=== PATIENT | male | born 1935 | race Caucasian/White ===

== ENCOUNTER 2017-03-27 10:00 | Inpatient (IN) | payer MEDICARE, OTHER ==
[2017-03-27] MEDS ORDERED: SODIUM CHLORIDE 0.9% 500 ML IV STA (10:30)
--- NOTE | 2017-03-27 10:35 | ED ---
General Adult HPI - General Chief complaint: GI Bleed Stated complaint: GI Bleed Time Seen by Provider: 03/27/17 10:00 Source: patient, RN notes reviewed Mode of arrival: ambulatory Limitations: no limitations - History of Present Illness Initial comments: 81-year-old male who presents emergency Department complaining of black stools for 3 days. Patient denies any bright red blood. Patient denies being on any blood thinners. Patient denies ever having a GI bleed. Patient states he gets occasional abdominal pain but currently is in no pain at all. Patient denies any nausea vomiting diarrhea recently. Patient denies any fever or chills. Patient denies any dysuria hematuria urinary frequency. Patient denies taking any Maalox or Pepto-Bismol. Patient denies any chest pain difficult breathing shortness of breath. Patient denies any lightheadedness dizziness nursing. - Related Data Home Medications Medication Instructions Recorded Confirmed Albuterol Inhaler [Ventolin Hfa 2 puff INHALATION RT-Q4H PRN 04/04/14 03/27/17 Inhaler] Budesonide-Formot 160-4.5 Mcg 2 puff INHALATION RT-BID 04/04/14 03/27/17 [Symbicort 160-4.5 Mcg Inhaler] NIFEdipine [NIFEdipine ER] 60 mg PO DAILY 04/04/14 03/27/17 Tiotropium [place] [Spiriva] 18 mcg IH RT-DAILY 04/04/14 03/27/17 Allergies Allergy/AdvReac Type Severity Reaction Status Date / Time No Known Allergies Allergy Verified 03/27/17 10:41 Review of Systems ROS Statement: Those systems with pertinent positive or pertinent negative responses have been documented in the HPI. ROS Other: All systems not noted in ROS Statement are negative. Past Medical History Past Medical History: COPD, Hypertension History of Any Multi-Drug Resistant Organisms: None Reported Date of last positivie culture/infection: 2012 MDRO Source:: LUNG Past Surgical History: Unable to Obtain, Cholecystectomy Additional Past Surgical History / Comment(s): CATARACT SX, HERNIA REPAIR Past Psychological History: No Psychological Hx Reported Smoking Status: Never smoker Past Alcohol Use History: Daily Past Drug Use History: None Reported - Past Family History Brother(s) Family Medical History: No Reported History Father Family Medical History: Cancer (Lung) Mother Family Medical History: Coronary Artery Disease (CAD), Hypertension General Exam - General Exam Comments Initial Comments: GENERAL: Patient is well-developed and well-nourished. Patient is nontoxic and well- hydrated and is in no acute distress. ENT: Neck is soft and supple. No significant lymphadenopathy is noted. Oropharynx is clear. Moist mucous membranes. Neck has full range of motion without eliciting any pain. EYES: The sclera were anicteric and conjunctiva were pink and moist. Extraocular movements were intact and pupils were equal round and reactive to light. Eyelids were unremarkable. PULMONARY: Unlabored respirations. Good breath sounds bilaterally. No audible rales rhonchi or wheezing was noted. CARDIOVASCULAR: There is a regular rate and rhythm without any murmurs gallops or rubs. ABDOMEN: Soft and nontender with normal bowel sounds. No palpable organomegaly was noted. There is no palpable pulsatile mass. RECTAL Rectal exam did not present any significant amount of stool. Otherwise normal SKIN: Skin is clear with no lesions or rashes and otherwise unremarkable. NEUROLOGIC: Patient is alert and oriented x3. Cranial nerves II through XII are grossly intact. Motor and sensory are also intact. Normal speech, volume and content. Symmetrical smile. MUSCULOSKELETAL: Normal extremities with adequate strength and full range of motion. LYMPHATICS: No significant lymphadenopathy is noted PSYCHIATRIC: Normal psychiatric evaluation. Normal interpersonal interactions appears functionally intact in deals appropriately with others. Limitations: no limitations Course Vital Signs 03/27/17 03/27/17 10:08 11:55 Temperature 99.9 F H Pulse Rate 83 98 Respiratory 20 18 Rate Blood Pressure 139/70 148/77 O2 Sat by Pulse 99 98 Oximetry Medical Decision Making - Medical Decision Making EKG shows normal sinus rhythm at 79 bpm NV interval is 160 QRS is 92 QT interval is 46 QTC is 465. I spoke with Dr. García he agreed to admit the patient admitted the patient I did serial CBCs and I consult with GI. - Lab Data Result diagrams: 03/27/17 10:41 03/27/17 10:41 Lab Results 03/27/17 03/27/17 03/27/17 Range/Units 10:41 10:41 10:41 WBC 5.0 (3.8-10.6) k/uL RBC 3.11 L (4.30-5.90) m/uL Hgb 9.7 L (13.0-17.5) gm/dL Hct 29.2 L (39.0-53.0) % MCV 93.8 (80.0-100.0) fL MCH 31.1 (25.0-35.0) pg MCHC 33.2 (31.0-37.0) g/dL RDW 14.4 (11.5-15.5) % Plt Count 192 (150-450) k/uL Neutrophils % 74 % Lymphocytes % 17 % Monocytes % 6 % Eosinophils % 1 % Basophils % 0 % Neutrophils # 3.7 (1.3-7.7) k/uL Lymphocytes # 0.8 L (1.0-4.8) k/uL Monocytes # 0.3 (0-1.0) k/uL Eosinophils # 0.0 (0-0.7) k/uL Basophils # 0.0 (0-0.2) k/uL PT 10.1 (9.0-12.0) sec INR 1.0 (<1.1) APTT 22.5 (22.0-30.0) sec Sodium 131 L (137-145) mmol/L Potassium 3.2 L (3.5-5.1) mmol/L Chloride 101 (98-107) mmol/L Carbon Dioxide 22 (22-30) mmol/L Anion Gap 8 mmol/L BUN 14 (9-20) mg/dL Creatinine 0.64 L (0.66-1.25) mg/dL Est GFR (MDRD) Af Amer >60 (>60 ml/min/1.73 sqM) Est GFR (MDRD) Non-Af >60 (>60 ml/min/1.73 sqM) Glucose 96 (74-99) mg/dL Calcium 8.8 (8.4-10.2) mg/dL Total Bilirubin 0.6 (0.2-1.3) mg/dL AST 30 (17-59) U/L ALT 30 (21-72) U/L Alkaline Phosphatase 61 (38-126) U/L Total Protein 6.3 (6.3-8.2) g/dL Albumin 3.7 (3.5-5.0) g/dL Stool Occult Blood (Negative) Blood Type Blood Type Recheck Antibody Screen Spec Expiration Date 06/13/17 06/13/17 Range/Units 10:41 10:44 WBC (3.8-10.6) k/uL RBC (4.30-5.90) m/uL Hgb (13.0-17.5) gm/dL Hct (39.0-53.0) % MCV (80.0-100.0) fL MCH (25.0-35.0) pg MCHC (31.0-37.0) g/dL RDW (11.5-15.5) % Plt Count (150-450) k/uL Neutrophils % % Lymphocytes % % Monocytes % % Eosinophils % % Basophils % % Neutrophils # (1.3-7.7) k/uL Lymphocytes # (1.0-4.8) k/uL Monocytes # (0-1.0) k/uL Eosinophils # (0-0.7) k/uL Basophils # (0-0.2) k/uL PT (9.0-12.0) sec INR (<1.1) APTT (22.0-30.0) sec Sodium (137-145) mmol/L Potassium (3.5-5.1) mmol/L Chloride (98-107) mmol/L Carbon Dioxide (22-30) mmol/L Anion Gap mmol/L BUN (9-20) mg/dL Creatinine (0.66-1.25) mg/dL Est GFR (MDRD) Af Amer (>60 ml/min/1.73 sqM) Est GFR (MDRD) Non-Af (>60 ml/min/1.73 sqM) Glucose (74-99) mg/dL Calcium (8.4-10.2) mg/dL Total Bilirubin (0.2-1.3) mg/dL AST (17-59) U/L ALT (21-72) U/L Alkaline Phosphatase (38-126) U/L Total Protein (6.3-8.2) g/dL Albumin (3.5-5.0) g/dL Stool Occult Blood Positive (Negative) Blood Type O Positive Blood Type Recheck No Antibody Screen NEGATIVE Spec Expiration Date 03/30/2017 - 2341 Disposition Clinical Impression: Gastrointestinal hemorrhage Disposition: ADMITTED IP TO THIS [facility] Referrals: Christie Pryor MD [Primary Care Provider] - 1-2 days Time of Disposition: 12:12
[2017-03-27 10:57] LABS: Basophils % (A) 0 %; CH 31.5; CHCM 33.8; Eosinophils % (A) 1 %; HCT 29.2 % (39.0-53.0); HDW 2.41; HGB 9.7 gm/dL (13.0-17.5); Luc # (Auto) 0.14; Luc % (Auto) 3; Lymphocytes # (A) 0.8 k/uL (1.0-4.8); Lymphocytes % (A) 17 %; MCH 31.1 pg (25.0-35.0); MCHC 33.2 g/dL (31.0-37.0); MCV 93.8 fL (80.0-100.0); Mean Platelet Volume 7.2; Monocytes # (A) 0.3 k/uL (0-1.0); Monocytes % (A) 6 %; Neutrophils # (A) 3.7 k/uL (1.3-7.7); Neutrophils % (A) 74 %; RBC 3.11 m/uL (4.30-5.90); RDW 14.4 % (11.5-15.5); WBC (Perox) 5.24
[2017-03-27 11:03] LABS: Partial Thromboplastin Time 22.5 sec (22.0-30.0); Prothrombin Time 10.1 sec (9.0-12.0)
[2017-03-27 11:08] LABS: ALT 30 U/L (21-72); AST 30 U/L (17-59); Alkaline Phosphatase 61 U/L (38-126); Anion Gap 8 mmol/L; Blood Urea Nitrogen 14 mg/dL (9-20); Calcium 8.8 mg/dL (8.4-10.2); Carbon Dioxide 22 mmol/L (22-30); Chloride 101 mmol/L (98-107); Glucose 96 mg/dL (74-99); Non-African American GFR(MDRD) >60 (>60 ml/min/1.73 sqM); Potassium 3.2 mmol/L (3.5-5.1); Sodium 131 mmol/L (137-145); Total Bilirubin 0.6 mg/dL (0.2-1.3); Total Protein 6.3 g/dL (6.3-8.2)
[2017-03-27] MEDS ORDERED: SODIUM CHLORIDE 0.9% 1,000 ML IV ONE (12:13)
[2017-03-27 14:21] LABS: Basophils % (A) 0 %; CH 31.9; CHCM 33.1; Eosinophils # (A) 0.1 k/uL (0-0.7); Eosinophils % (A) 1 %; HDW 2.39; HGB 8.9 gm/dL (13.0-17.5); Luc % (Auto) 4; Lymphocytes # (A) 1.1 k/uL (1.0-4.8); Lymphocytes % (A) 23 %; MCH 30.9 pg (25.0-35.0); MCHC 31.9 g/dL (31.0-37.0); Monocytes # (A) 0.4 k/uL (0-1.0); Monocytes % (A) 8 %; Neutrophils # (A) 3.2 k/uL (1.3-7.7); Neutrophils % (A) 64 %; RBC 2.89 m/uL (4.30-5.90); RDW 14.4 % (11.5-15.5); WBC (Perox) 5.07
[2017-03-27] MEDS ORDERED: ALBUTEROL NEBULIZED 2.5 MG/3 ML INHALATION PRN (18:15)
--- NOTE | 2017-03-27 18:15 | P.HPIM ---
History of Present Illness H&P Date: 03/27/17 Chief Complaint: Gastrointestinal bleeding Patient is an 81-year-old male patient of Dr. Pryor presented to [facility] emergency room with a chief complaint of black tarry stools for the last 4 days, patient was evaluated in emergency room, his hemoglobin was trending down and he was admitted to medical floor and gastroenterology consultation was requested. Patient denies ever having any previous episodes of gastrointestinal bleeding, he states that he has osteoarthritis and he takes Aleve 2 daily he also was taking a full aspirin daily until recently when he switched to baby aspirin. Patient states that he used to smoke in the remote past he quit at age 33, he denies any smoking or any alcohol use at this time Patient denies any significant cardiac history in the past Past Medical History Past Medical History: COPD, GERD/Reflux, Hypertension, Osteoarthritis (OA) Additional Past Medical History / Comment(s): Bronchitis, arthritis bilateral hands and hips, benign colon polypectomy, History of Any Multi-Drug Resistant Organisms: None Reported, MRSA Date of last positivie culture/infection: 2012 MDRO Source:: sputum Past Surgical History: Cholecystectomy, Hernia Repair, Orthopedic Surgery Additional Past Surgical History / Comment(s): CATARACT SX, R inguinal HERNIA REPAIR, colonoscopy with benign polyp, amputation L pinky finger Past Anesthesia/Blood Transfusion Reactions: No Reported Reaction Past Psychological History: No Psychological Hx Reported Additional Psychological History / Comment(s): Pt resides alone. He does not drive and has difficulties making it to appts. He is otherwise independent. He has a nebulizer. Smoking Status: Former smoker Past Alcohol Use History: Rare Additional Past Alcohol Use History / Comment(s): Pt states he started smoking about 6 and quit about 1971. He states he used to drink alot but quit heavy drinking in 2014. He states on a rare occasion, he will drink 1 beer. Past Drug Use History: None Reported - Past Family History Brother(s) Family Medical History: No Reported History Father Family Medical History: Cancer Additional Family Medical History / Comment(s): Father of lung cancer. He was a smoker. Mother Family Medical History: Coronary Artery Disease (CAD), Hypertension Additional Family Medical History / Comment(s): Mother at the age of 72yrs. Medications and Allergies Home Medications Medication Instructions Recorded Confirmed Type Albuterol Inhaler [Ventolin Hfa 2 puff INHALATION RT-Q4H PRN 04/04/14 03/27/17 History Inhaler] Budesonide-Formot 160-4.5 Mcg 2 puff INHALATION RT-BID 04/04/14 03/27/17 History [Symbicort 160-4.5 Mcg Inhaler] NIFEdipine [NIFEdipine ER] 60 mg PO DAILY 04/04/14 03/27/17 History Tiotropium [place] [Spiriva] 18 mcg IH RT-DAILY 04/04/14 03/27/17 History Allergies Allergy/AdvReac Type Severity Reaction Status Date / Time No Known Allergies Allergy Verified 03/27/17 10:41 Physical Exam Vitals: Vital Signs Temp Pulse Pulse Resp BP BP Pulse Ox 03/27/17 15:01 78 16 03/27/17 14:59 98.5 F 81 16 191/78 98 03/27/17 13:17 99.0 F 82 18 135/73 99 03/27/17 11:55 98 18 148/77 98 03/27/17 10:08 99.9 F H 83 20 139/70 99 Intake and Output 03/27/17 03/27/17 03/27/17 06:59 14:59 22:59 Output Total 200 Balance -200 Output: Urine 200 Other: Voiding Method Toilet Urinal Weight 73.028 kg Patient Weight 03/28/17 06:59 Weight 73.028 kg In general patient is alert and oriented 3 in no apparent distress HEENT head normocephalic and atraumatic Neck is supple no JVD no goiter no lymphadenopathy Chest is clear to auscultation no crackles no wheezing Cardiac exam reveals regular heart sounds no gallops no murmurs Abdomen is soft nontender no organomegaly with normal bowel sounds Extremity exam reveals no edema no cyanosis or Results CBC & Chem 7: 03/27/17 14:01 03/27/17 10:41 Labs: Abnormal Lab Results - Last 24 Hours (Table) 03/27/17 03/27/17 03/27/17 Range/Units 10:41 10:41 14:01 RBC 3.11 L 2.89 L (4.30-5.90) m/uL Hgb 9.7 L 8.9 L (13.0-17.5) gm/dL Hct 29.2 L 28.0 L (39.0-53.0) % Lymphocytes # 0.8 L (1.0-4.8) k/uL Sodium 131 L (137-145) mmol/L Potassium 3.2 L (3.5-5.1) mmol/L Creatinine 0.64 L (0.66-1.25) mg/dL Thrombosis Risk Factor Assmnt - Choose All That Apply Any of the Below Risk Factors Present?: Yes Each Factor Represents 1 point: Abnormal pulmonary function (COPD), Obesity ( BMI >25) Other Risk Factors: Yes Each Risk Factor Represents 3 Points: Age 75 years or older Other congenital or acquired thrombophilia - If yes, enter type in comment: No Thrombosis Risk Factor Assessment Total Risk Factor Score: 5 Thrombosis Risk Factor Assessment Level: High Risk Assessment and Plan Plan: #1 black tarry stools suggestive of upper gastrointestinal bleeding #2 anemia monitoring hemoglobin level closely will proceed was available red blood cell transfusion if necessary this was discussed with patient and he has no objection to blood transfusion #3 hypokalemia correcting #4 underlying history of hypertension maintained on nifedipine continue #5 underlying history of COPD maintained on Spiriva and Symbicort continue Medication and labs were reviewed will follow closely please see orders thank you very much end
[2017-03-27] MEDS: POTASSIUM CHLORIDE ER 10 MEQ TAB.ER.PRT PO STA ×2 (18:30→18:31)
[2017-03-27] MEDS: SYMBICORT 160-4.5 MCG INHALER INHALATION SCH (19:39)
[2017-03-27] MEDS: PANTOPRAZOLE 40 MG/10 ML VIAL IVP SCH (19:56)
[2017-03-28] MEDS: TIOTROPIUM 18 MCG/PUFF INHALER INHALATION SCH (07:17)
[2017-03-28] MEDS: SYMBICORT 160-4.5 MCG INHALER INHALATION SCH ×2 (07:17→20:58)
[2017-03-28] MEDS: PANTOPRAZOLE 40 MG/10 ML VIAL IVP SCH ×2 (08:00→20:24)
[2017-03-28 08:01] LABS: Basophils % (A) 1 %; CH 31.7; CHCM 34.3; Eosinophils # (A) 0.1 k/uL (0-0.7); Eosinophils % (A) 2 %; HCT 27.4 % (39.0-53.0); HDW 2.61; HGB 9.4 gm/dL (13.0-17.5); Luc # (Auto) 0.13; Luc % (Auto) 3; Lymphocytes # (A) 0.8 k/uL (1.0-4.8); Lymphocytes % (A) 18 %; MCH 31.8 pg (25.0-35.0); MCHC 34.2 g/dL (31.0-37.0); MCV 92.9 fL (80.0-100.0); Mean Platelet Volume 6.7; Monocytes # (A) 0.3 k/uL (0-1.0); Monocytes % (A) 8 %; Neutrophils # (A) 2.9 k/uL (1.3-7.7); Neutrophils % (A) 68 %; RBC 2.94 m/uL (4.30-5.90); RDW 14.2 % (11.5-15.5); WBC 4.2 k/uL (3.8-10.6); WBC (Perox) 4.34
[2017-03-28 08:11] LABS: ALT 31 U/L (21-72); AST 29 U/L (17-59); Alkaline Phosphatase 57 U/L (38-126); Anion Gap 9 mmol/L; Blood Urea Nitrogen 6 mg/dL (9-20); Calcium 8.7 mg/dL (8.4-10.2); Carbon Dioxide 22 mmol/L (22-30); Chloride 100 mmol/L (98-107); Glucose 94 mg/dL (74-99); Non-African American GFR(MDRD) >60 (>60 ml/min/1.73 sqM); Potassium 3.7 mmol/L (3.5-5.1); Sodium 131 mmol/L (137-145); Total Bilirubin 0.7 mg/dL (0.2-1.3)
--- NOTE | 2017-03-28 09:47 | P.CONS ---
History of Present Illness - Reason for Consult Consult date: 03/28/17 GI bleed melena Requesting physician: Asuncion García - History of Present Illness 81-year-old gentleman patient of Dr. Dr. Pryor with a past medical history remote EtOH abuse presents with a 5 day history of black colored bowel movements. Averages 1 to 2 black movements daily. Denies hematemesis or gross hematochezia. Last colonoscopy several years ago to his memory maybe one polyp removed. No history of peptic ulcer disease or GI bleeding. No history of EGD. Takes Aleve twice a day for arthritic pain last dose about 5 days ago. Baby aspirin daily. Occasional Motrin as needed. No active alcohol. Hemoglobin 9.7 on admission presently 9.4. MCV 93. Platelet 192. BUN 14. Creatinine 0.6. INR 1.0. Reports abdominal bloatedness and pain in the right upper quadrant/right subcostal region. No fever or chills. Review of Systems Constitutional: Denies fever, chills, sweats, weight gain, or loss. HEENT: Negative for migraines, blurred vision or loss, earaches, drainage, tinnitus, oral mucosal lesions, dysphagia, or odynophagia. Cardiac: Hypertension. Negative for chest pain, arrhythmias, or palpitation. Respiratory: COPD. Negative for shortness of breath, hemoptysis, cough, or sputum production. Gastrointestinal: See HPI for pertinent findings. Genitourinary: Negative for hematuria, urgency, frequency, polyuria, dysuria, or penile discharge. Musculoskeletal: Arthritis. Negative for muscle aches, swelling, arthritis, and arthralgias. Neurologic: Negative for stroke or TIA. Endocrine: Negative for thyroid problems. Skin: Negative for rash or itching. Psychiatric: Negative history for depression and anxiety All systems: negative (See HPI) Past Medical History Past Medical History: COPD, GERD/Reflux, Hypertension, Osteoarthritis (OA) Additional Past Medical History / Comment(s): Bronchitis, arthritis bilateral hands and hips, benign colon polypectomy, History of Any Multi-Drug Resistant Organisms: None Reported, MRSA Year Discovered:: 2012 MDRO Source:: sputum Past Surgical History: Cholecystectomy, Hernia Repair, Orthopedic Surgery Additional Past Surgical History / Comment(s): CATARACT SX, R inguinal HERNIA REPAIR, colonoscopy with benign polyp, amputation L pinky finger Past Anesthesia/Blood Transfusion Reactions: No Reported Reaction Past Psychological History: No Psychological Hx Reported Additional Psychological History / Comment(s): Pt resides alone. He does not drive and has difficulties making it to appts. He is otherwise independent. He has a nebulizer. Smoking Status: Former smoker Past Alcohol Use History: Rare Additional Past Alcohol Use History / Comment(s): Pt states he started smoking about 1954 and quit about 1971. He states he used to drink alot but quit heavy drinking in 2014. He states on a rare occasion, he will drink 1 beer. Past Drug Use History: None Reported - Past Family History Brother(s) Family Medical History: No Reported History Father Family Medical History: Cancer Additional Family Medical History / Comment(s): Father of lung cancer. He was a smoker. Mother Family Medical History: Coronary Artery Disease (CAD), Hypertension Additional Family Medical History / Comment(s): Mother at the age of 72yrs. Medications and Allergies Home Medications Medication Instructions Recorded Confirmed Type Albuterol Inhaler [Ventolin Hfa 2 puff INHALATION RT-Q4H PRN 04/04/14 03/27/17 History Inhaler] Budesonide-Formot 160-4.5 Mcg 2 puff INHALATION RT-BID 04/04/14 03/27/17 History [Symbicort 160-4.5 Mcg Inhaler] NIFEdipine [NIFEdipine ER] 60 mg PO DAILY 04/04/14 03/27/17 History Tiotropium [place] [Spiriva] 18 mcg IH RT-DAILY 04/04/14 03/27/17 History Allergies Allergy/AdvReac Type Severity Reaction Status Date / Time No Known Allergies Allergy Verified 03/27/17 10:41 Physical Exam Vitals: Vital Signs Temp Pulse Pulse Resp BP BP Pulse Ox 03/28/17 08:00 72 16 03/28/17 07:00 98.4 F 72 16 132/72 98 03/27/17 23:03 97.9 F 72 16 121/71 99 03/27/17 15:01 78 16 03/27/17 14:59 98.5 F 81 16 191/78 98 03/27/17 13:17 99.0 F 82 18 135/73 99 03/27/17 11:55 98 18 148/77 98 03/27/17 10:08 99.9 F H 83 20 139/70 99 Intake and Output 03/27/17 03/28/17 03/28/17 22:59 06:59 14:59 Intake Total 1100 Output Total 200 2175 Balance -200 -1075 Intake: Intake, IV Titration 1100 Amount Sodium Chloride 0.9% 1, 1100 000 ml @ 100 mls/hr IV . Q10H ONE Rx#:[id number] Output: Urine 200 2175 Other: Voiding Method Toilet Toilet Toilet Urinal Urinal Urinal Weight 73.028 kg Patient Weight 03/29/17 06:59 Weight 73.028 kg General appearance: The patient is alert, oriented, in no acute distress. HET: Head is normocephalic and atraumatic. Pupils are equal and reactive. Oropharynx is clear without lesions. Neck: Supple without lymphadenopathy. Trachea midline. Heart: S1 S2. Regular rate and rhythm. Lungs: No crackles or wheezes are heard. Abdomen: Soft, slightly bloated, mild tenderness to the right upper quadrant/ right subcostal region with bowel sounds. No peritoneal signs. No palpable organomegaly or masses. Extremities: Normal skin color and turgor. No cyanosis, rash, ulceration, clubbing, or edema. Radial and pedal pulses are 2/4 bilaterally. Neurological: No focal deficits. Strength and sensation are grossly intact. Results CBC & Chem 7: 03/28/17 07:40 03/28/17 07:40 Labs: Abnormal Lab Results - Last 24 Hours (Table) 03/27/17 03/27/17 03/27/17 Range/Units 10:41 10:41 14:01 RBC 3.11 L 2.89 L (4.30-5.90) m/uL Hgb 9.7 L 8.9 L (13.0-17.5) gm/dL Hct 29.2 L 28.0 L (39.0-53.0) % Lymphocytes # 0.8 L (1.0-4.8) k/uL Sodium 131 L (137-145) mmol/L Potassium 3.2 L (3.5-5.1) mmol/L BUN (9-20) mg/dL Creatinine 0.64 L (0.66-1.25) mg/dL Total Protein (6.3-8.2) g/dL 03/28/17 03/28/17 Range/Units 07:40 07:40 RBC 2.94 L (4.30-5.90) m/uL Hgb 9.4 L (13.0-17.5) gm/dL Hct 27.4 L (39.0-53.0) % Lymphocytes # 0.8 L (1.0-4.8) k/uL Sodium 131 L (137-145) mmol/L Potassium (3.5-5.1) mmol/L BUN 6 L (9-20) mg/dL Creatinine 0.56 L (0.66-1.25) mg/dL Total Protein 6.0 L (6.3-8.2) g/dL Assessment and Plan (1) Gastrointestinal hemorrhage Status: Acute (2) Melena Status: Acute (3) Acute blood loss anemia Status: Acute (4) History of ETOH abuse Status: Acute Plan: 1. IV Protonix 40 mg twice daily. 2. EGD evaluation. 3. Avoid NSAIDs and aspirin. 4. Monitor CBC. The specifications checker has discussed the risks, benefits and alternative therapies for the above-mentioned procedure and for both sedation/analgesia as well as necessary blood product administration, if indicated, as they pertain to this patient. The patient has indicated understanding and acceptance of the risks and procedures discussed. Thank you for this kind referral and the opportunity to participate in the care of your patient. This consultation was discussed with Dr. Mathew. The impression and plan of care have been directed as dictated.
[2017-03-28] MEDS ORDERED: LIDOCAINE 1% INJ 10MG/ML (20 ML MDV) ONE (10:00)
[2017-03-28] MEDS ORDERED: PROPOFOL 10 MG/ML 20 ML VIAL IV ONE (10:00)
[2017-03-28] MEDS ORDERED: SODIUM CHLORIDE 0.9% 1,000 ML IV ONE (10:04)
--- NOTE | 2017-03-28 10:19 | P.PCN ---
Date of Procedure: 03/28/17 Preoperative Diagnosis: Postoperative Diagnosis: Procedure(s) Performed: BRIEF HISTORY: Patient is a 81-year-old, pleasant, white male, scheduled for an upper endoscopy as a part of evaluation of black tarry stools for the last 4 days duration. He came into the emergency room and wasn't have a hemoglobin of 9.7 g/dL. Scheduled for an upper endoscopy to evaluate source of upper GI bleed. PROCEDURE PERFORMED: Esophagogastroduodenoscopy with biopsy. PREOPERATIVE DIAGNOSIS: Melena of 4 days duration and anemia. IV sedation per anesthesia. PROCEDURE: After informed consent was obtained, the patient was brought into the endoscopy unit. IV sedation was administered by Anesthesia under continuous monitoring. Initially the Olympus GIF-140 video endoscope was inserted into the mouth. Esophagus intubated without any difficulty. It was gradually advanced into the stomach and duodenum and carefully examined. The bulb and the second part of the duodenum appeared normal. The scope at this time was withdrawn to the stomach, adequately insufflated with air, and upon careful examination, mucosa of the antrum, body, cardia and the fundus appeared normal. The scope was then withdrawn into the esophagus. Small hiatal hernia noted. The GE junction was located at 35 cm from the incisors. There was long 7 or Wooten's esophagus extending from 25-30% administered by incisors and multiple ulcerations noted in the distal part of the Wooten's esophagus. Multiple biopsies were done from this segment of Wooten's esophagus to rule out dysplasia. The proximal esophagus appeared normal and the patient tolerated the procedure well. IMPRESSION: 1. 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 2. Small hiatal hernia. RECOMMENDATIONS: The findings of this examination were discussed with the patient. At this time he was started on the soft diet. He'll be continued on Protonix 40 mg twice daily. He was advised to follow with the biopsy results and if the biopsy does not have any evidence of dysplasia and he can have a repeat upper endoscopy in 2 years as part of surveillance of Wootne's esophagus. Implants: Indications for Procedure: Operative Findings: Description of Procedure:
--- NOTE | 2017-03-28 12:29 | P.PN ---
Subjective Patient is complaining of epigastric pain today. He underwent an EGD this morning. He said his pain is approximately 8 out of 10 in severity. EGD findings noted below. Objective - Vital Signs Vital signs: Vital Signs Temp 98.4 F 03/28/17 07:00 Pulse 72 03/28/17 08:00 Resp 16 03/28/17 08:00 BP 132/72 03/28/17 07:00 Pulse Ox 98 03/28/17 07:00 Intake & Output 03/27/17 03/28/17 03/28/17 18:59 06:59 18:59 Intake Total 1100 300 Output Total 200 2375 Balance -200 -1275 300 Weight 73.028 kg 73.028 kg Intake: IV 300 Intake, IV Titration 1100 Amount Sodium Chloride 0.9% 1, 1100 000 ml @ 100 mls/hr IV . Q10H ONE Rx#:[id number] Output: Urine 200 2375 Other: Voiding Method Toilet Toilet Toilet Urinal Urinal Urinal - Exam General: The patient is awake and alert, in no distress Eye: there is normal conjunctiva bilaterally. Neck: The neck is supple, there is no JVD. Cardiovascular: Normal S1-S2, no S3-S4, no murmurs. Respiratory: Lungs clear to auscultation bilaterally Gastrointestinal: Abdomen is soft, nontender Musculoskeletal: There is no pedal edema. Neurological:. Speech is normal. Skin: Skin is warm and dry - Labs CBC & Chem 7: 03/28/17 07:40 03/28/17 07:40 Labs: Abnormal Lab Results - Last 24 Hours (Table) 03/27/17 03/28/17 03/28/17 Range/Units 14:01 07:40 07:40 RBC 2.89 L 2.94 L (4.30-5.90) m/uL Hgb 8.9 L 9.4 L (13.0-17.5) gm/dL Hct 28.0 L 27.4 L (39.0-53.0) % Lymphocytes # 0.8 L (1.0-4.8) k/uL Sodium 131 L (137-145) mmol/L BUN 6 L (9-20) mg/dL Creatinine 0.56 L (0.66-1.25) mg/dL Total Protein 6.0 L (6.3-8.2) g/dL Assessment and Plan Plan: 1. Upper GI bleed with melena on presentation 2. 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 Alcohol abuse 4. Essential hypertension: Blood pressure well-controlled 5. Underlying COPD was no evidence of exacerbation Today, I discussed with the patient his EGD findings. We discussed the necessity to stop drinking alcohol. Continue Protonix twice daily. Start liquid diet. May dose low-dose morphine for pain as needed. Continue supportive care otherwise. Hemoglobin remained stable. Repeat lab work in the morning. Appreciate crm consultant's recommendations.
[2017-03-28 15:02] VITALS: BMI 30.4
[2017-03-28] MEDS: MORPHINE SULFATE 2 MG/ML SYRINGE IVP PRN ×2 (15:19→20:22)
[2017-03-29] MEDS: MORPHINE SULFATE 2 MG/ML SYRINGE IVP PRN ×5 (06:28→22:25)
[2017-03-29] MEDS: PANTOPRAZOLE 40 MG/10 ML VIAL IVP SCH ×2 (07:52→19:51)
[2017-03-29 08:11] LABS: Basophils % (A) 0 %; CH 31.7; CHCM 33.2; Eosinophils # (A) 0.1 k/uL (0-0.7); Eosinophils % (A) 2 %; HCT 30.1 % (39.0-53.0); HDW 2.56; Luc # (Auto) 0.12; Luc % (Auto) 2; Lymphocytes % (A) 20 %; MCH 31.7 pg (25.0-35.0); MCHC 33.1 g/dL (31.0-37.0); MCV 95.9 fL (80.0-100.0); Mean Platelet Volume 6.9; Monocytes # (A) 0.4 k/uL (0-1.0); Monocytes % (A) 7 %; Neutrophils # (A) 3.4 k/uL (1.3-7.7); Neutrophils % (A) 68 %; RBC 3.14 m/uL (4.30-5.90); RDW 14.9 % (11.5-15.5); WBC (Perox) 5.09
[2017-03-29 08:24] LABS: Anion Gap 9 mmol/L; Blood Urea Nitrogen 11 mg/dL (9-20); Carbon Dioxide 24 mmol/L (22-30); Chloride 99 mmol/L (98-107); Glucose 98 mg/dL (74-99); Non-African American GFR(MDRD) >60 (>60 ml/min/1.73 sqM); Potassium 3.6 mmol/L (3.5-5.1); Sodium 132 mmol/L (137-145)
[2017-03-29] MEDS: TIOTROPIUM 18 MCG/PUFF INHALER INHALATION SCH (09:00)
[2017-03-29] MEDS: SYMBICORT 160-4.5 MCG INHALER INHALATION SCH ×2 (09:00→21:21)
--- NOTE | 2017-03-29 11:26 | P.PN ---
Subjective Principal diagnosis: GI bleed melena Status post EGD with findings long segment of Wooten's esophagus with ulcerations. Still reports right upper quadrant right subcostal abdominal pain. Afebrile. No recurrence of melena. Hemoglobin 10.0. Objective - Vital Signs Vital signs: Vital Signs Temp 98.8 F 03/29/17 07:00 Pulse 76 03/29/17 08:00 Resp 16 03/29/17 08:00 BP 112/68 03/29/17 07:00 Pulse Ox 97 03/29/17 07:00 Intake & Output 03/28/17 03/29/17 03/29/17 18:59 06:59 18:59 Intake Total 780 240 Balance 780 240 Weight 73.028 kg 73.028 kg Intake: IV 300 Oral 480 240 Other: Voiding Method Toilet Toilet Toilet Urinal Urinal Urinal # Voids 1 2 - Exam General appearance: The patient is alert, oriented, in no acute distress. HET: Head is normocephalic and atraumatic. Pupils are equal and reactive. Oropharynx is clear without lesions. Neck: Supple without lymphadenopathy. Trachea midline. Heart: S1 S2. Regular rate and rhythm. Lungs: No crackles or wheezes are heard. Abdomen: Soft, right upper quadrant tenderness mildly bloated with bowel sounds. No peritoneal signs. No palpable organomegaly or masses. Extremities: Normal skin color and turgor. No cyanosis, rash, ulceration, clubbing, or edema. Radial and pedal pulses are 2/4 bilaterally. Neurological: No focal deficits. Strength and sensation are grossly intact. - Labs CBC & Chem 7: 03/29/17 07:44 03/29/17 07:44 Labs: Abnormal Lab Results - Last 24 Hours (Table) 03/29/17 03/29/17 Range/Units 07:44 07:44 RBC 3.14 L (4.30-5.90) m/uL Hgb 10.0 L (13.0-17.5) gm/dL Hct 30.1 L (39.0-53.0) % Sodium 132 L (137-145) mmol/L Creatinine 0.65 L (0.66-1.25) mg/dL Assessment and Plan (1) Barretts esophagus Narrative/Plan: With ulceration status post EGD Status: Acute (2) Gastrointestinal hemorrhage Status: Acute (3) Melena Status: Acute (4) Acute blood loss anemia Status: Acute (5) History of ETOH abuse Status: Acute Plan: 1. Patient is still expressing right upper quadrant abdominal pain. Recommend computed tomography scan further evaluate pain. Recommendations discussed with Josefina HOWE. Continue GI prophylaxis omeprazole 40 mg daily on discharge. Return to office in 1-2 weeks for reevaluation. Assessment and plan a care discussed with Dr. Eden.
--- NOTE | 2017-03-29 12:35 | CT ---
EXAMINATION TYPE: CT abdomen pelvis wo con DATE OF EXAM: 03/29/2017 HISTORY: Right sided abdomen and pelvic pain CT DLP: 268.8 mGycm. Automated Exposure Control for Dose Reduction was Utilized. TECHNIQUE: CT scan of the abdomen and pelvis is performed without oral or IV contrast. COMPARISON: NONE FINDINGS: Within the limitations of a non-contrast study, the following observations are made. LUNG BASES: Three-vessel coronary artery calcification is present. Suspect tiny pericardial effusion inferiorly, slight nodularity may be related to cardiac motion near right heart seen best on axial im age 12. LIVER/GB: Cholecystectomy clips are present. There is 1.3 cm simple appearing cyst anteriorly in live r. PANCREAS: No significant abnormality is seen. SPLEEN: No significant abnormality is seen. ADRENALS: No significant abnormality is seen. KIDNEYS: There is exophytic 2.5 cm low dense lesion lower pole level left kidney, Hounsfield units av erage 14 favor simple cyst or cystic etiology. Consider ultrasound confirmation as there is slightly more hyperdense than simple cyst. BOWEL: Some diverticula are seen in the sigmoid colon. No acute diverticulitis is evident. No suspici ous bowel dilatation is seen. GENITAL ORGANS: Central zone calcifications are seen in normal size prostate gland. LYMPH NODES: No greater than 1cm abdominal or pelvic lymph nodes are appreciated. OSSEOUS STRUCTURES: Moderate multilevel anterior and lateral spurring in the lower thoracic spine is present. There is moderate to severe disc space narrowing and spurring at lumbosacral junction. There is multilevel facet arthropathy. OTHER: There is small fat-containing left inguinal hernia. Scattered pelvic phleboliths are seen. The re is moderate to severe calcified atherosclerotic change of abdominal aorta extending into branch ve ssels. IMPRESSION: 1. No renal stones or hydronephrosis is seen bilaterally. No significant finding is seen on this stud y to account for patient's symptoms. 2. Attention to lower pole left kidney, ultrasound follow-up advised.
--- NOTE | 2017-03-29 13:01 | P.PN ---
Subjective Patient is complaining of epigastric pain today. His pain is not improving since yesterday. He is tolerating diet with no difficulty. Objective - Vital Signs Vital signs: Vital Signs Temp 98.8 F 03/29/17 07:00 Pulse 76 03/29/17 08:00 Resp 16 03/29/17 08:00 BP 112/68 03/29/17 07:00 Pulse Ox 97 03/29/17 07:00 Intake & Output 03/28/17 03/29/17 03/29/17 18:59 06:59 18:59 Intake Total 780 240 Balance 780 240 Weight 73.028 kg 73.028 kg Intake: IV 300 Oral 480 240 Other: Voiding Method Toilet Toilet Toilet Urinal Urinal Urinal # Voids 1 2 - Exam General: The patient is awake and alert, in no distress Eye: there is normal conjunctiva bilaterally. Neck: The neck is supple, there is no JVD. Cardiovascular: Normal S1-S2, no S3-S4, no murmurs. Respiratory: Lungs clear to auscultation bilaterally Gastrointestinal: Abdomen is soft, nontender Musculoskeletal: There is no pedal edema. Neurological:. Speech is normal. Skin: Skin is warm and dry - Labs CBC & Chem 7: 03/29/17 07:44 03/29/17 07:44 Labs: Abnormal Lab Results - Last 24 Hours (Table) 03/29/17 03/29/17 Range/Units 07:44 07:44 RBC 3.14 L (4.30-5.90) m/uL Hgb 10.0 L (13.0-17.5) gm/dL Hct 30.1 L (39.0-53.0) % Sodium 132 L (137-145) mmol/L Creatinine 0.65 L (0.66-1.25) mg/dL Assessment and Plan Plan: 1. Upper GI bleed with melena on presentation 2. 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 Alcohol abuse 4. Essential hypertension: Blood pressure well-controlled 5. Underlying COPD was no evidence of exacerbation Today, I discussed with the patient his EGD findings. We discussed the necessity to stop drinking alcohol. Continue Protonix twice daily. Computed tomography scan of the abdomen and pelvis showed no significant findings to explain his epigastric pain. Suspected left kidney cyst needs further evaluation with ultrasound. Continue supportive care otherwise. Hemoglobin remained stable. Repeat lab work in the morning. Appreciate financial analysis consultant's recommendations. His pain is improving tomorrow may be discharged home.
--- NOTE | 2017-03-29 14:10 | US ---
EXAMINATION TYPE: US kidneys/renal and bladder DATE OF EXAM: 03/29/2017 COMPARISON: None CLINICAL HISTORY: Follow-up on computed tomography scan finding. Generalized abdomen pain EXAM MEASUREMENTS: Right Kidney: 9.9 x 4.5 x 4.6 cm Left Kidney: 11.3 x 4.3 x 5.1 cm Right Kidney: wnl Left Kidney: lower pole cystic lesion with internal debris = 2.5 x 2.4 x 2.4 cm Bladder: moderately distended, wnl as visualized Right Jet seen There is no evidence for hydronephrosis at this point in time. No nephrolithiasis is seen. No radha s are identified. The urinary bladder is anechoic. Bilateral ureteral jets are seen. IMPRESSION: No hydronephrosis or nephrolithiasis. There is a complex lesion involving the lower pole left kidney measuring 2.5 cm which does not meet the criteria of a simple cyst. Neoplasm not excluded.
--- NOTE | 2017-03-29 14:39 | CDI ---
In responding to this query, please exercise your independent professional judgment. The [facility] Coding Staff and Clinical Documentation Specialists appreciate your assistance in clarifying documentation, maintaining compliance with coding guidelines, accurately documenting patients condition and capturing severity of illness. The fact that a question is asked does not imply that any particular answer is desired or expected. Communication forms are a method of clarifying documentation and are not made part of the Legal Health Record. Thank you in advance for your clarification. Last Revision, August 2015 Rani Green [address] [address] Documentation Clarification Form Date: 03/29/2017 2:22:00 PM From: Cynthia Michael Admit Date: 03/28/2017 5:14:00 PM Patient Name: Marquis Seaman Visit Number: [id number] Discharge Date: Dr. Chris Hooper Your patient has the documented diagnosis of upper GI bleed, Wooten's esophagus and Alcohol abuse in your notes dated 03/29/17. A relationship between diagnoses cannot be assumed unless documented as such by the attending physician. In order to capture the severity of condition please document the relationship, if any, between these diagnoses. History/Risk Factors: Hypertension, COPD Clinical Indicators: Presents to ED with complaints of black stools for 3 days. He gets occasional abdominal pain. He admits to daily alcohol use. Treatment: Monitor Labs IV Fluids Protonix IV Morphine Sulfate IVP PRN Please clarify and document your clinical opinion in the progress notes and discharge summary if any relationship (due to, caused by, secondary to) exists between these three diagnoses. Please include clinical findings supporting your diagnosis. Other explanation of clinical findings Unable to determine (no explanation for clinical findings) Please document in your progress notes and discharge summary in order to capture severity of illness and risk of mortality. Include clinical findings that support your diagnosis. FYI: Press F11 to launch patient chart. Place X here if this finding has no clinical significance, is not applicable or if you are not able to provide any additional documentation. MTDD
[2017-03-30] MEDS: MORPHINE SULFATE 2 MG/ML SYRINGE IVP PRN ×2 (05:54→14:38)
[2017-03-30 07:41] LABS: Basophils % (A) 1 %; CHCM 33.5; Eosinophils # (A) 0.1 k/uL (0-0.7); Eosinophils % (A) 3 %; HCT 30.1 % (39.0-53.0); HDW 2.64; HGB 9.7 gm/dL (13.0-17.5); Luc # (Auto) 0.12; Luc % (Auto) 3; Lymphocytes % (A) 22 %; MCHC 32.2 g/dL (31.0-37.0); MCV 96.2 fL (80.0-100.0); Mean Platelet Volume 6.9; Monocytes # (A) 0.3 k/uL (0-1.0); Monocytes % (A) 7 %; Neutrophils % (A) 64 %; RBC 3.12 m/uL (4.30-5.90); RDW 15.1 % (11.5-15.5); WBC 4.7 k/uL (3.8-10.6); WBC (Perox) 4.61
[2017-03-30] MEDS: PANTOPRAZOLE 40 MG/10 ML VIAL IVP SCH (07:44)
[2017-03-30] MEDS: SYMBICORT 160-4.5 MCG INHALER INHALATION SCH (07:50)
[2017-03-30] MEDS: TIOTROPIUM 18 MCG/PUFF INHALER INHALATION SCH (07:53)
[2017-03-30 08:02] LABS: Anion Gap 8 mmol/L; Blood Urea Nitrogen 13 mg/dL (9-20); Calcium 8.9 mg/dL (8.4-10.2); Carbon Dioxide 25 mmol/L (22-30); Chloride 97 mmol/L (98-107); Glucose 90 mg/dL (74-99); Non-African American GFR(MDRD) >60 (>60 ml/min/1.73 sqM); Potassium 3.6 mmol/L (3.5-5.1); Sodium 130 mmol/L (137-145)
[2017-03-30 08:36] VITALS: RESP 18
--- NOTE | 2017-03-30 11:19 | P.PN ---
Subjective Principal diagnosis: GI bleed melena Status post EGD with findings long segment of Wooten's esophagus with ulcerations biopsy pending [facility] evaluation. Still reports right upper quadrant right subcostal abdominal pain. Ct abdomen performed yesterday pancreas spleen and liver no significant abnormality seen. 1.3 cm simple appearing cyst anterior in the liver. Cholecystectomy clips present. Afebrile. No recurrence of melena. Hemoglobin 10.0. Objective - Vital Signs Vital signs: Vital Signs Temp 98.5 F 03/30/17 07:00 Pulse 83 03/30/17 08:00 Resp 18 03/30/17 08:00 BP 144/70 03/30/17 07:00 Pulse Ox 96 03/30/17 07:00 Intake & Output 03/29/17 03/30/17 03/30/17 18:59 06:59 18:59 Intake Total 810 Output Total 2 Balance 810 -2 Weight 73.028 kg 73.028 kg Intake: Oral 810 Output: Urine 2 Other: Voiding Method Toilet Toilet Toilet Urinal Urinal Urinal # Voids 2 2 2 - Exam General appearance: The patient is alert, oriented, in no acute distress. HET: Head is normocephalic and atraumatic. Pupils are equal and reactive. Oropharynx is clear without lesions. Neck: Supple without lymphadenopathy. Trachea midline. Heart: S1 S2. Regular rate and rhythm. Lungs: No crackles or wheezes are heard. Abdomen: Soft, right upper quadrant tenderness mildly bloated with bowel sounds. No peritoneal signs. No palpable organomegaly or masses. Extremities: Normal skin color and turgor. No cyanosis, rash, ulceration, clubbing, or edema. Radial and pedal pulses are 2/4 bilaterally. Neurological: No focal deficits. Strength and sensation are grossly intact. - Labs CBC & Chem 7: 03/30/17 07:18 03/30/17 07:18 Labs: Abnormal Lab Results - Last 24 Hours (Table) 03/30/17 03/30/17 Range/Units 07:18 07:18 RBC 3.12 L (4.30-5.90) m/uL Hgb 9.7 L (13.0-17.5) gm/dL Hct 30.1 L (39.0-53.0) % Sodium 130 L (137-145) mmol/L Chloride 97 L (98-107) mmol/L Assessment and Plan (1) Barretts esophagus Narrative/Plan: With ulceration status post EGD biopsy pending [facility] evaluation Status: Acute (2) Gastrointestinal hemorrhage Status: Acute (3) Melena Status: Acute (4) Acute blood loss anemia Status: Acute (5) History of ETOH abuse Status: Acute Plan: 1. Agreeable for discharge. Prilosec 40 mg daily. Return to GI office in 1-2 weeks for reevaluation discussion of EGD biopsies. Assessment and plan a care discussed with Dr. Eden.
--- NOTE | 2017-03-30 15:17 | P.DS ---
Providers Date of admission: 03/28/17 17:14 Expected date of discharge: 03/30/17 Attending physician: Asuncion García Consults: 03/27/17 12:13 Consult Physician Urgent Consulting Provider: Idris Eden Consult Reason/Comments: GI bleed Do you want consulting provider notified?: Yes Primary care physician: Christie Pryor Hospital Course: Discharge diagnosis 1. Upper GI bleed with melena on presentation secondary to multiple ulcerations in the distal segment of the Wooten's esophagus. No further active bleeding. Hemoglobin at discharge is 9.7 hemoglobin. Continue Protonix 40 mg twice a day recommend checking CBC in 1 week 2. 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 Alcohol abuse 4. Essential hypertension: Blood pressure well-controlled 5. Underlying COPD was no evidence of exacerbation 6. Left kidney lesion measuring 2.5 cm does not meet criteria for simple cyst noted on abdominal ultrasound. Will have patient follow-up with urology outpatient for workup 7. Back pain. Patient had workup completed outpatient. He may require an MRI of the spine Hospital course Patient is an 81-year-old male patient of Dr. Pryor presented to [facility] emergency room with a chief complaint of black tarry stools for the last 4 days, patient was evaluated in emergency room, his hemoglobin was trending down and he was admitted to medical floor and gastroenterology consultation was requested. Patient denies ever having any previous episodes of gastrointestinal bleeding, he states that he has osteoarthritis and he takes Aleve 2 daily he also was taking a full aspirin daily until recently when he switched to baby aspirin. GI service was consulted. Patient underwent EGD with Dr. Laughlin did results show a long segment of Wotoen's esophagus with multiple superficial ulcerations measuring between 5-7 cm in size in the distal segment of Wooten's esophagus status post biopsy of the area. She'll he also has a small hiatal hernia. Patient is maintained on Protonix 40 mg by mouth twice a day. He'll follow-up with Dr. Laughlin in 2 weeks. At that time they will go over biopsy results. Patient has been cleared by GI service for discharge. He continued to have some right-sided abdominal rib pain with right-sided back pain. A computed tomography scan of the abdomen was completed showing no evidence of renal stones or hydronephrosis. Cyst suspicious area of the lower pole of the left kidney ultrasound was recommended. Ultrasound showed no evidence of hydronephrosis or nephrolithiasis did show a complex lesion involving the lower pole of the left kidney measuring 2.5 cm. Neoplasm not excluded. Patient will therefore see urology outpatient for further workup in regards to this kidney cyst. Also further workup can be completed for his back pain. Patient will be given a prescription of [place]. He is medically stable for discharge. His GI bleeding symptoms have resolved. He'll continue on the Protonix. Please refer to chart for any further details. Patient Condition at Discharge: Stable Plan - Discharge Summary New Discharge Prescriptions: New HYDROcodone/APAP 5-325MG [[place] 5-325] 1 tab PO Q6HR PRN #30 tab PRN Reason: Pain Pantoprazole Sodium [Protonix] 40 mg PO BID #60 tablet. Continue NIFEdipine [NIFEdipine ER] 60 mg PO DAILY Budesonide-Formot 160-4.5 Mcg [Symbicort 160-4.5 Mcg Inhaler] 2 puff INHALATION RT-BID Tiotropium [place] [Spiriva] 18 mcg IH RT-DAILY Albuterol Inhaler [Ventolin Hfa Inhaler] 2 puff INHALATION RT-Q4H PRN PRN Reason: Shortness Of Breath Discharge Medication List Albuterol Inhaler [Ventolin Hfa Inhaler] 2 puff INHALATION RT-Q4H PRN 04/04/14 [ History] Budesonide-Formot 160-4.5 Mcg [Symbicort 160-4.5 Mcg Inhaler] 2 puff INHALATION RT-BID 04/04/14 [History] NIFEdipine [NIFEdipine ER] 60 mg PO DAILY 04/04/14 [History] Tiotropium [place] [Spiriva] 18 mcg IH RT-DAILY 04/04/14 [History] HYDROcodone/APAP 5-325MG [[place] 5-325] 1 tab PO Q6HR PRN #30 tab 03/30/17 [Rx] Pantoprazole Sodium [Protonix] 40 mg PO BID #60 tablet. 03/30/17 [Rx] Follow up Appointment(s)/Referral(s): Kristina Mathew MD [STAFF PHYSICIAN] - 2 Weeks Christie Pryor MD [Primary Care Provider] - 1 Week Activity/Diet/Wound Care/Special Instructions: Diet: regular Activity: as tolerated Discharge Disposition: HOME SELF-CARE
[2017-03-30 15:22] VITALS: BP 116/65; PULSE 82; TEMP 98.1
[2017-03-31] MEDS ORDERED: PANTOPRAZOLE 40 MG TABLET PO SCH (09:00)
== END 2017-03-30 16:19 | disposition home or self-care (01) | DRG 381 ==
LOC: EC 10:00 → 5MS5E 12:13 → OBSVTOIN 03-28 17:14
PROVIDERS: ADMIT Internal Medicine; ATTEND Internal Medicine
PROC: 0DB58ZX Excision of Esophagus, Via Natural or Artificial Opening Endoscopic, Diagnostic (ICD-10-PCS; principal; 2017-03-28 07:30)
DX: K22.11 Ulcer of esophagus with bleeding (principal); D62 Acute posthemorrhagic anemia; J44.9 Chronic obstructive pulmonary disease, unspecified; K76.89 Other specified diseases of liver; I10 Essential (primary) hypertension; E87.6 Hypokalemia; F10.10 Alcohol abuse, uncomplicated; F17.200 Nicotine dependence, unspecified, uncomplicated; K21.9 Gastro-esophageal reflux disease without esophagitis; K22.70 Barrett's esophagus without dysplasia; K44.9 Diaphragmatic hernia without obstruction or gangrene; M19.041 Primary osteoarthritis, right hand; M19.042 Primary osteoarthritis, left hand; N28.1 Cyst of kidney, acquired; Z79.51 Long term (current) use of inhaled steroids; Z80.1 Family history of malignant neoplasm of trachea, bronchus and lung; Z82.49 Family history of ischemic heart disease and other diseases of the circulatory system
CPT/HCPCS: 36415; 43239; 74176; 76770; 80048; 80053; 82272; 85025; 85610; 85730; 86850; 86900; 86901; 88305; 93005; 94640; 99285

== ENCOUNTER 2017-04-11 10:31 | Day surgery (SDC) | payer MEDICARE, OTHER ==
[2017-04-10 12:31] VITALS: BMI 24.3
[~2017-04-11 10:31] MED LIST: LACTATED RINGERS 1,000 ML IV SCH; LIDOCAINE 1% 20 ML VIAL (10MG/ML) FOR IV START INTRADERMA PRN
[2017-04-11 12:09] VITALS: TEMP 98
[2017-04-11] MEDS ORDERED: PROPOFOL 10 MG/ML 20 ML VIAL IV ONE (12:48)
[2017-04-11] MEDS ORDERED: LIDOCAINE 1% INJ 10MG/ML (20 ML MDV) ONE (12:48)
--- NOTE | 2017-04-11 13:06 | P.PCN ---
Date of Procedure: 04/11/17 Preoperative Diagnosis: Postoperative Diagnosis: Procedure(s) Performed: BRIEF HISTORY: Patient is a 81-year-old pleasant white male, scheduled for an elective colonoscopy as a part of a value should've rectal bleeding for the last few weeks duration. PROCEDURE PERFORMED: Colonoscopy snare polypectomy. PREOPERATIVE DIAGNOSIS: Rectal bleeding. IV sedation per Anesthesia. PROCEDURE: After informed consent was obtained, the patient, was brought into the endoscopy unit. IV sedation was administered by Anesthesia under continuous monitoring. Digital rectal examination was normal. Initially the Olympus CF- 160 flexible video colonoscope was then inserted in the rectum, gradually advanced into the cecum without any difficulty. Careful examination was performed as the scope was gradually being withdrawn. Ileocecal valve and the appendiceal orifice were visualized and appeared normal. Prep was excellent. Mucosa of the cecum, ascending colon, transverse colon, appeared normal. In the descending colon there was a 5 mm polyp that was removed by snare polypectomy. descending colon, sigmoid colon, and rectum appeared normal. Retroflexion was performed in the rectum and grade 2 internal hemorrhoids were seen. Scattered diffuse diverticulosis seen. The patient tolerated the procedure well. IMPRESSION: 5 mm descending colon polyp status post snare polypectomy. Scattered diffuse diverticulosis. Grade 2 internal hemorrhoids. RECOMMENDATIONS: Findings of this examination were discussed with the patient as well as his family. He was advised to be a high-fiber diet and take fiber supplements a regular basis and avoid straining and constipation. Implants: Indications for Procedure: Operative Findings: Description of Procedure:
[2017-04-11 13:09] VITALS: RESP 18
[2017-04-11 13:28] VITALS: BP 150/78; PULSE 87
== END 2017-04-11 13:39 | disposition home or self-care (01) ==
LOC: ORWHC2ENDO 10:31
PROVIDERS: ATTEND Internal Medicine Gastroenterology
DX: D12.2 Benign neoplasm of ascending colon (principal); I10 Essential (primary) hypertension; J45.909 Unspecified asthma, uncomplicated; K64.1 Second degree hemorrhoids; K57.30 Diverticulosis of large intestine without perforation or abscess without bleeding; J44.9 Chronic obstructive pulmonary disease, unspecified; K21.9 Gastro-esophageal reflux disease without esophagitis; Z91.040 Latex allergy status; Z79.899 Other long term (current) drug therapy; Z79.51 Long term (current) use of inhaled steroids
CPT/HCPCS: 88305; 45385; J2001; J2704

== ENCOUNTER 2017-11-23 06:03 | Observation (INO) | payer MEDICARE, OTHER ==
[2017-11-20 15:52] VITALS: BMI 24.0
[~2017-11-23 06:03] MED LIST changes: +HEPARIN SODIUM,PORCINE 5,000 UNIT/ML 1 ML VIAL SQ ONE; -LACTATED RINGERS 1,000 ML IV SCH; -LIDOCAINE 1% 20 ML VIAL (10MG/ML) FOR IV START INTRADERMA PRN; +ceFAZolin IN SWFI 2 GM/20 ML SYRINGE IVP ONE
[2017-11-23] MEDS ORDERED: ONDANSETRON 4 MG/2 ML VIAL IVP ONE (06:11)
[2017-11-23] MEDS ORDERED: DEXAMETHASONE SOD PHOSPHATE 10 MG/ML 1 ML VIAL IV ONE (06:11)
[2017-11-23] MEDS ORDERED: MIDAZOLAM 2 MG/2 ML VIAL IV PRN (06:11)
[2017-11-23] MEDS ORDERED: MORPHINE SULFATE 4 MG/ML SYRINGE IV PRN (06:11)
[2017-11-23] MEDS: LACTATED RINGERS 1,000 ML IV SCH (06:51)
[2017-11-23] MEDS ORDERED: LIDOCAINE 1% 20 ML VIAL (10MG/ML) FOR IV START INTRADERMA ONE (06:52)
[2017-11-23] MEDS ORDERED: SUCCINYLCHOLINE CHLORIDE 100 MG/5 ML SYR IV ONE (07:30)
[2017-11-23] MEDS ORDERED: PHENYLEPHRINE-0.9% NACL SYG 1 MG/10 ML SYRINGE ONE (07:30)
[2017-11-23] MEDS ORDERED: fentaNYL (PF) 50 MCG/ML 2 ML AMP ONE (07:30)
[2017-11-23] MEDS ORDERED: PROPOFOL 10 MG/ML 20 ML VIAL IV ONE (07:30)
[2017-11-23] MEDS ORDERED: MIDAZOLAM 2 MG/2 ML VIAL ONE (07:30)
[2017-11-23] MEDS ORDERED: GLYCOPYRROLATE 0.2 MG/ML 2 ML VIAL ONE (07:30)
[2017-11-23] MEDS ORDERED: ROCURONIUM BROMIDE 10 MG/ML 10 ML VIAL IV ONE (07:30)
[2017-11-23] MEDS ORDERED: NEOSTIGMINE 1 MG/ML 10 ML VIAL ONE (07:30)
[2017-11-23] MEDS ORDERED: LIDOCAINE 1% INJ 10MG/ML (20 ML MDV) ONE (07:30)
[2017-11-23] MEDS ORDERED: HYDROmorphone (PF) 1 MG/ML ONE (07:30)
[2017-11-23] MEDS ORDERED: BUPIVACAINE (PF) 0.25% 30 ML VIAL SQ ONE (07:58)
[2017-11-23] MEDS ORDERED: LACTATED RINGERS 1,000 ML IV ONE ×2 (08:14)
[2017-11-23] MEDS ORDERED: ALBUTEROL INHALER 60 PUFF/8 GM INHALER INHALATION PRN (11:42)
[2017-11-23] MEDS ORDERED: ALBUTEROL NEBULIZED 2.5 MG/3 ML INHALATION PRN (11:42)
[2017-11-23] MEDS ORDERED: ONDANSETRON 4 MG/2 ML VIAL IVP PRN (11:44)
[2017-11-23] MEDS ORDERED: KETOROLAC 30 MG/ML 1 ML VIAL IVP PRN (11:44)
[2017-11-23] MEDS ORDERED: ACETAMINOPHEN TAB 325 MG TAB PO PRN (11:44)
--- NOTE | 2017-11-23 11:51 | P.OP ---
Date of Procedure: 11/23/17 Preoperative Diagnosis: Adenocarcinoma of the Prostate, Clinical Stage [id number] Postoperative Diagnosis: Same Procedure(s) Performed: Robotic-assisted Laparoscopic Prostatectomy (RALP) With Bilateral Pelvic Lymphadenectomy Anesthesia: QUINTEN Surgeon: Alex Canada Estimated Blood Loss (ml): 100 IV fluids (ml): 1,300 Pathology: other (Prostate, seminal vesicles, bilateral pelvic lymph nodes) Condition: stable Disposition: PACU Indications for Procedure: 81 yo WM with no family history of prostate cancer. PSA level has increased to 11.3, up from 1.85 in 2016. KIRAN reveals prominence at the prostatic bases, and biopsies show Marimar 7 adenocarcinoma at the right base. The patient desires treatment but would not be agreeable to IMRT due to the fact he doesn't drive and doesn't want to be dependent on his family (son) and friends. He has elected to undergo an RALP, though I have made it clear to him that his advanced age places him at increased risk. He understands the possible need for adjuvant therapy. Operative Findings: No evidence of extraprostatic disease. Description of Procedure: The patient was taken in the operating room and placed in the dorsal lithotomy position, with his legs supported in Oskar stirrups. He was carefully positioned on a beanbag for stability. The abdomen and external genitalia were prepped and draped sterilely. A Sweeney catheter was inserted. The Veress needle was passed through the anterior abdominal wall immediately cephalad to the umbilicus, and insufflation was performed to a pressure of 20 mm Hg. Once insufflation was performed, the Veress needle was removed and a supraumbilical incision was made, through which a 12 mm camera port was placed. Under camera guidance, 3 8 mm robotic ports were placed, 2 on the left and one on the right. An additional 12 mm port was placed on the right lateral side for use as an economic research assistant port. A 5 mm port was placed to the right of the camera port for suction. The patient was placed in Trendelenburg position, and docking was then performed to the da Ange system utilizing a 4-arm approach. The abdomen was examined. The sigmoid colon was mobilized out of the pelvis. The peritoneum was incised lateral to the medial umbilical ligaments bilaterally , exposing the pubis. The peritoneum was then incised across the midline, allowing the bladder flap to be taken down. The endopelvic fascia was opened bilaterally, and muscular attachments from the urogenital diaphragm were swept away from the prostate. Bilateral pelvic lymphadenectomies were performed in the standard fashion. The peritoneal incisions were extended in a cephalad direction, and the vas deferens were divided bilaterally. Margins of dissection were the bifurcation of the iliac vessels proximally, the circumflex iliac vein distally, the external iliac artery laterally, and the obturator nerve medially. A combination of sharp and blunt dissection was used. Care was taken to avoid any neurovascular injury, and the use of monopolar electrocautery was avoided immediately adjacent to neurovascular structures. The lymphatic package was clipped distally. No enlarged lymph nodes were encountered. There were no complications. The vesical neck was incised transversely, down to the lumen. The Sweeney catheter was brought out through the anterior vesical neck incision and was used for traction. The posterior aspect of the vesical neck was incised, such that the full-thickness of the vesical neck was divided. The anterior layer of the Denonvilliers fascia was incised, exposing the vas deferens. Each were isolated and divided. Next, each of the seminal vesicles were dissected away from adjacent tissues, and vascular attachments were cauterized and divided. The posterior leaf of Denonvilliers fascia was incised transversely, allowing entry into the plane between the prostate and rectum. With lateral spreading, this plane was developed down to the apex. This exposed the lateral vascular pedicles bilaterally. These were clipped and divided in an antegrade fashion, down to the apex. The remaining apical attachments were swept away from the prostate. The dorsal venous complex was incised, as well as periurethral tissue. At this point, only the urethra remained intact. This was transected immediately distal to the prostatic apex using cold scissors. The specimen was placed within a specimen bag. The dorsal venous complex was sutured using a V-Loc suture in a running fashion. A second V-Loc suture was then used to place the Kevin stitch, incorporating the rhabdosphincter and the edge of Denonvilliers fascia. This allowed the bladder to be taken down to the urethra, leaving the vesical neck immediately adjacent to the urethra. The vesicourethral anastomosis was then performed using a V-Loc suture in a running fashion. After completing the anastomosis, an attempt was made to place an 18-Malaysian Sweeney catheter. However , this could not be advanced into the bladder, nor could a smaller catheter. Ultimately, the V-Loc suture knot was taken down and the anterior aspect of the anastomosis was . A 20-Malaysian coud-tip Sweeney catheter was then placed without difficulty. A V-Loc suture was used to close the anterior aspect of the anastomosis, and after the 20-Malaysian coud-tip Sweeney catheter was placed approximately 150 mL of 0.9 normal saline were instilled into the bladder. No extravasation of irrigant from the vesicourethral anastomosis was noted. Hemostasis was noted at this time to be excellent, and it was thus felt that a drain was unnecessary. The patient was returned to the supine position. Undocking was performed, and the specimen bag sutures were passed through the camera port. After removing all the ports and allowing all of the CO2 to be released from the peritoneal cavity, the camera port incision was enlarged to allow removal of the surgical specimen. The fascia of this incision was then closed using 0 Vicryl suture in an interrupted [id number] fashion. The fascia of the 12 mm economic research assistant port was closed using 0 Vicryl suture. Each of the skin incisions were then closed using 4-0 Monocryl suture in a subcuticular fashion. Marcaine was injected at each of the incision sites. Dermabond was applied to each incision. The Sweeney catheter was connected to gravity drainage. All sponge and needle counts were correct. The patient tolerated the procedure well was taken to the recovery room in stable condition.
[2017-11-23] MEDS: DEXTROSE 5%-0.45% NACL 1,000 ML IV SCH ×2 (13:45→20:29)
[2017-11-23] MEDS: HYDROmorphone 0.5 MG/0.5 ML SYRINGE IVP PRN ×2 (17:37→20:21)
[2017-11-23] MEDS: HEPARIN SODIUM,PORCINE 5,000 UNIT/ML 1 ML VIAL SQ SCH (20:30)
[2017-11-24] MEDS: HYDROmorphone 0.5 MG/0.5 ML SYRINGE IVP PRN ×2 (03:31→13:32)
[2017-11-24] MEDS: DEXTROSE 5%-0.45% NACL 1,000 ML IV SCH (05:46)
[2017-11-24] MEDS: IPRATROPIUM 0.5 MG/2.5 ML NEBU INHALATION SCH ×3 (07:43→15:58)
[2017-11-24] MEDS ORDERED: SYMBICORT 160-4.5 MCG INHALER INHALATION SCH (08:00)
[2017-11-24 08:55] VITALS: RESP 16; TEMP 98.9
[2017-11-24] MEDS: HEPARIN SODIUM,PORCINE 5,000 UNIT/ML 1 ML VIAL SQ SCH (08:55)
--- NOTE | 2017-11-24 14:25 | P.DS ---
Providers Date of admission: 11/23/17 21:52 Expected date of discharge: 11/24/17 Attending physician: Alex Canada Primary care physician: [facility] Course: On the day of admission, the patient underwent an uncomplicated robotic assisted laparoscopic prostatectomy (RALP). The postoperative course was unremarkable. He remained afebrile with stable vital signs. On the first postoperative day, he was ambulating without difficulty. He reported incisional discomfort, as expected. He was tolerating liquids, and denied nausea and vomiting. The Sweeney catheter was draining clear yellow urine. Procedures: RALP with bilateral pelvic lymphadenectomy on 11/23/2017 Patient Condition at Discharge: Good Plan - Discharge Summary Discharge Rx Participant: No New Discharge Prescriptions: New Ciprofloxacin HCl [Cipro] 250 mg PO Q12HR #6 tablet Hydrocodone/Acetaminophen [[place] 5-325] 1 - 2 each PO Q4HR PRN #20 tab PRN Reason: Pain No Action NIFEdipine [NIFEdipine ER] 60 mg PO QAM Budesonide-Formot 160-4.5 Mcg [Symbicort 160-4.5 Mcg Inhaler] 2 puff INHALATION RT-DAILY Tiotropium [place] [Spiriva] 18 mcg IH RT-DAILY Albuterol Inhaler [Ventolin Hfa Inhaler] 2 puff INHALATION RT-Q4H PRN PRN Reason: Shortness Of Breath Albuterol Nebulized (Conc) [Ventolin Nebulized (Conc)] 2.5 mg INHALATION RT- QID PRN PRN Reason: sob Lysine 500 mg PO DAILY Cholecalciferol [Vitamin D3] 500 unit PO DAILY Aspirin 81 mg PO DAILY Discharge Medication List Albuterol Inhaler [Ventolin Hfa Inhaler] 2 puff INHALATION RT-Q4H PRN 04/04/14 [ History] Budesonide-Formot 160-4.5 Mcg [Symbicort 160-4.5 Mcg Inhaler] 2 puff INHALATION RT-DAILY 04/04/14 [History] NIFEdipine [NIFEdipine ER] 60 mg PO QAM 04/04/14 [History] Tiotropium [place] [Spiriva] 18 mcg IH RT-DAILY 04/04/14 [History] Albuterol Nebulized (Conc) [Ventolin Nebulized (Conc)] 2.5 mg INHALATION RT-QID PRN 04/10/17 [History] Aspirin 81 mg PO DAILY 11/20/17 [History] Cholecalciferol [Vitamin D3] 500 unit PO DAILY 11/20/17 [History] Lysine 500 mg PO DAILY 11/20/17 [History] Ciprofloxacin HCl [Cipro] 250 mg PO Q12HR #6 tablet 11/24/17 [Rx] Hydrocodone/Acetaminophen [[place] 5-325] 1 - 2 each PO Q4HR PRN #20 tab 11/24/17 [Rx] Follow up Appointment(s)/Referral(s): Alex Canada MD [STAFF PHYSICIAN] - 12/05/17 Activity/Diet/Wound Care/Special Instructions: Discharge home with Sweeney catheter. Please give patient a urinary leg bag and overnight drainage bag, and instruct him on the use of both. Okay to shower. Diet as tolerated. No lifting, driving, or strenuous activity. Patient should begin taking ciprofloxacin on 12/04/2017. Discharge Disposition: HOME SELF-CARE
[2017-11-24 15:14] VITALS: BP 111/59; PULSE 84
== END 2017-11-24 16:00 | disposition home or self-care (01) ==
LOC: OR 06:03 → 3SUR 11:38 → OR 21:52
PROVIDERS: ADMIT Urology; ATTEND Urology
DX: C61 Malignant neoplasm of prostate (principal); I10 Essential (primary) hypertension; E78.5 Hyperlipidemia, unspecified; E55.9 Vitamin D deficiency, unspecified; L30.9 Dermatitis, unspecified; K57.90 Diverticulosis of intestine, part unspecified, without perforation or abscess without bleeding; M51.36 Other intervertebral disc degeneration, lumbar region; M19.90 Unspecified osteoarthritis, unspecified site; D64.9 Anemia, unspecified; Z79.1 Long term (current) use of non-steroidal anti-inflammatories (NSAID); Z79.82 Long term (current) use of aspirin; Z79.899 Other long term (current) drug therapy; Z86.010 Personal history of colon polyps; Z87.11 Personal history of peptic ulcer disease; Z87.19 Personal history of other diseases of the digestive system; Z91.040 Latex allergy status; Z80.1 Family history of malignant neoplasm of trachea, bronchus and lung; Z82.49 Family history of ischemic heart disease and other diseases of the circulatory system
CPT/HCPCS: 94640 ×2; 86900; 86901; 86850; 88307; 88309; 55866; 38571; G0378 ×2; J2250; J1644 ×2; J1100; J2710; J2405; J2001; J3010; J1885; J1170 ×3; J2370; J0330; J2704; J0690

== ENCOUNTER → 2017-12-04 | Outpatient (CLI) | payer OTHER ==
--- NOTE | 2017-12-04 12:55 | FL ---
EXAMINATION: Cystogram. DATE: 12/04/2017 CLINICAL HISTORY: Prostatectomy and 12/02/2017 with Sweeney catheter placement TECHNIQUE AND FINDINGS: The risks and benefits of the procedure were discussed with the patient who gave verbal consent. The urinary bladder was catheterized prior to the patient's arrival. Retrograde instillation of water-kary uble contrast demonstrates the bladder to be normal in course and contour with no filling defects elham reciated. During removal of contrast phase, there is no trabeculation of the bladder or filling defec t. A total of 125 mL of Cysto-Conray II contrast was instilled as the patient could not tolerate any further contrast instillation. No vesicoureteral was noted. The post-void image demonstrates no sign ificant urinary residual. IMPRESSION: Unremarkable cystogram with no contrast extravasation or filling defect within the urinary bladder. T he office was called prior to the examination to determine the need for urethrogram and cystogram was ordered. If urethrogram is requested, this could be performed.
== END | disposition home or self-care (01) ==
LOC: RADFLMAIN 11:36
PROVIDERS: ATTEND Urology
DX: C61 Malignant neoplasm of prostate (principal)
CPT/HCPCS: 51600; 74430; Q9962

== ENCOUNTER 2018-06-05 13:48 | Inpatient (IN) | payer OTHER, MEDICARE ==
[2018-06-05 14:21] LABS: Basophils % (A) 0 %; Eosinophils # (A) 0.2 k/uL (0-0.7); Eosinophils % (A) 3 %; HGB 14.6 gm/dL (13.0-17.5); Lymphocytes # (A) 1.8 k/uL (1.0-4.8); Lymphocytes % (A) 27 %; MCH 29.1 pg (25.0-35.0); MCHC 32.6 g/dL (31.0-37.0); MCV 89.5 fL (80.0-100.0); Mean Platelet Volume 6.9; Monocytes # (A) 0.5 k/uL (0-1.0); Monocytes % (A) 7 %; Neutrophils # (A) 4.1 k/uL (1.3-7.7); Neutrophils % (A) 60 %; Platelet Count 172 k/uL (150-450); RBC 5.03 m/uL (4.30-5.90); RDW 14.6 % (11.5-15.5); WBC 6.9 k/uL (3.8-10.6)
--- NOTE | 2018-06-05 14:25 | ED ---
General Adult HPI - General Chief complaint: Recheck/Abnormal Lab/Rx Stated complaint: abnormal EKG Time Seen by Provider: 06/05/18 13:50 Source: patient, RN notes reviewed Mode of arrival: wheelchair Limitations: no limitations - History of Present Illness Initial comments: This is an 82-year-old male presents emergency department stating that anytime he exerts himself he gets short of breath and tired. Patient states he went to the [facility] today and they told him he was severely bradycardic and he needed to come to the emergency department immediately. Patient will from [facility] emergency department. Patient denies any chest pain or palpitations. Patient denies any abdominal pain patient denies nausea vomiting diarrhea. Patient denies any black or bloody stools. Patient denies any lightheadedness or dizziness. Patient denies headache patient denies numbness weakness. Patient denies any recent fever chills or cough. - Related Data Home Medications Medication Instructions Recorded Confirmed Albuterol Inhaler [Ventolin Hfa 2 puff INHALATION RT-Q4H PRN 04/04/14 11/23/17 Inhaler] Budesonide-Formot 160-4.5 Mcg 2 puff INHALATION RT-DAILY 04/04/14 11/23/17 [Symbicort 160-4.5 Mcg Inhaler] NIFEdipine [NIFEdipine ER] 60 mg PO QAM 04/04/14 11/23/17 Tiotropium [place] [Spiriva] 18 mcg IH RT-DAILY 04/04/14 11/23/17 Albuterol Nebulized (Conc) 2.5 mg INHALATION RT-QID PRN 04/10/17 11/23/17 [Ventolin Nebulized (Conc)] Aspirin 81 mg PO DAILY 11/20/17 11/23/17 Cholecalciferol [Vitamin D3] 500 unit PO DAILY 11/20/17 11/23/17 Lysine 500 mg PO DAILY 11/20/17 11/23/17 Previous Rx's Medication Instructions Recorded Ciprofloxacin HCl [Cipro] 250 mg PO Q12HR #6 tablet 11/24/17 Ciprofloxacin HCl [Cipro] 250 mg PO Q12HR #6 tablet 11/24/17 Hydrocodone/Acetaminophen [[place] 1 - 2 each PO Q4HR PRN #20 tab 11/24/17 5-325] Hydrocodone/Acetaminophen [[place] 1 - 2 each PO Q4HR PRN #20 tab 11/24/17 5-325] Allergies Allergy/AdvReac Type Severity Reaction Status Date / Time latex Allergy red skin Verified 06/05/18 13:52 laundry soap Allergy Itching Uncoded 06/05/18 13:52 Review of Systems ROS Statement: Those systems with pertinent positive or pertinent negative responses have been documented in the HPI. ROS Other: All systems not noted in ROS Statement are negative. Past Medical History Past Medical History: COPD, GERD/Reflux, Hypertension, Osteoarthritis (OA) Additional Past Medical History / Comment(s): states "black stools for 5 days", Bronchitis, arthritis bilateral hands and hips, benign colon polypectomy, History of Any Multi-Drug Resistant Organisms: None Reported, MRSA Date of last positivie culture/infection: 2012 MDRO Source:: sputum Past Surgical History: Cholecystectomy, Hernia Repair, Orthopedic Surgery, Prostate Surgery Additional Past Surgical History / Comment(s): CATARACT SX, R inguinal HERNIA REPAIR, colonoscopy with benign polyp, amputation L pinky finger Past Anesthesia/Blood Transfusion Reactions: No Reported Reaction Past Psychological History: No Psychological Hx Reported Smoking Status: Former smoker Past Alcohol Use History: Rare Past Drug Use History: None Reported - Past Family History Brother(s) Family Medical History: No Reported History Father Family Medical History: Cancer Additional Family Medical History / Comment(s): Father of lung cancer. He was a smoker. Mother Family Medical History: Coronary Artery Disease (CAD), Hypertension, Myocardial Infarction (PA) Additional Family Medical History / Comment(s): Mother at the age of 72yrs. General Exam - General Exam Comments Initial Comments: GENERAL: Patient is well-developed and well-nourished. Patient is nontoxic and well- hydrated and is in no acute distress. ENT: Neck is soft and supple. No significant lymphadenopathy is noted. Oropharynx is clear. Moist mucous membranes. Neck has full range of motion without eliciting any pain. EYES: The sclera were anicteric and conjunctiva were pink and moist. Extraocular movements were intact and pupils were equal round and reactive to light. Eyelids were unremarkable. PULMONARY: Unlabored respirations. Good breath sounds bilaterally. No audible rales rhonchi or wheezing was noted. CARDIOVASCULAR: Patient is bradycardic at 45 beats a minute.. Femoral pulses are equal bilaterally ABDOMEN: Soft and nontender with normal bowel sounds. No palpable organomegaly was noted. There is no palpable pulsatile mass. SKIN: Skin is clear with no lesions or rashes and otherwise unremarkable. NEUROLOGIC: Patient is alert and oriented x3. Cranial nerves II through XII are grossly intact. Motor and sensory are also intact. Normal speech, volume and content. Symmetrical smile. MUSCULOSKELETAL: Normal extremities with adequate strength and full range of motion. No lower extremity swelling or edema. No calf tenderness. LYMPHATICS: No significant lymphadenopathy is noted PSYCHIATRIC: Normal psychiatric evaluation. Limitations: no limitations Course Vital Signs 06/05/18 13:50 Temperature 98.7 F Pulse Rate 47 L Respiratory 20 Rate Blood Pressure 151/81 O2 Sat by Pulse 97 Oximetry Medical Decision Making - Medical Decision Making EKG shows a marked sinus bradycardia at 45 bpm OH interval is 172 QRS is 88 QT interval 494 QTC is 427. Patient's EKG shows no ST segment elevation or depression no T-wave abnormalities are noted. Chest x-ray shows no acute abnormality. I spoke with Dr. holloway he agreed to admit the patient admitted the patient I wrote admitting orders. I consult cardiology. - Lab Data Result diagrams: 06/05/18 14:09 06/05/18 14:09 Lab Results 06/05/18 06/05/18 06/05/18 Range/Units 14:09 14:09 14:09 WBC 6.9 (3.8-10.6) k/uL RBC 5.03 (4.30-5.90) m/uL Hgb 14.6 (13.0-17.5) gm/dL Hct 45.0 (39.0-53.0) % MCV 89.5 (80.0-100.0) fL MCH 29.1 (25.0-35.0) pg MCHC 32.6 (31.0-37.0) g/dL RDW 14.6 (11.5-15.5) % Plt Count 172 (150-450) k/uL Neutrophils % 60 % Lymphocytes % 27 % Monocytes % 7 % Eosinophils % 3 % Basophils % 0 % Neutrophils # 4.1 (1.3-7.7) k/uL Lymphocytes # 1.8 (1.0-4.8) k/uL Monocytes # 0.5 (0-1.0) k/uL Eosinophils # 0.2 (0-0.7) k/uL Basophils # 0.0 (0-0.2) k/uL PT (9.0-12.0) sec INR (<1.2) APTT (22.0-30.0) sec Sodium 131 L (137-145) mmol/L Potassium 4.2 (3.5-5.1) mmol/L Chloride 100 (98-107) mmol/L Carbon Dioxide 21 L (22-30) mmol/L Anion Gap 10 mmol/L BUN 12 (9-20) mg/dL Creatinine 0.70 (0.66-1.25) mg/dL Est GFR (CKD-EPI)AfAm >90 (>60 ml/min/1.73 sqM) Est GFR (CKD-EPI)NonAf 89 (>60 ml/min/1.73 sqM) Glucose 93 (74-99) mg/dL Calcium 9.3 (8.4-10.2) mg/dL Magnesium 1.9 (1.6-2.3) mg/dL Total Bilirubin 0.8 (0.2-1.3) mg/dL AST 32 (17-59) U/L ALT 39 (21-72) U/L Alkaline Phosphatase 86 (38-126) U/L Total Creatine Kinase 155 (55-170) U/L Total Protein 6.9 (6.3-8.2) g/dL Albumin 4.3 (3.5-5.0) g/dL 06/05/18 Range/Units 14:09 WBC (3.8-10.6) k/uL RBC (4.30-5.90) m/uL Hgb (13.0-17.5) gm/dL Hct (39.0-53.0) % MCV (80.0-100.0) fL MCH (25.0-35.0) pg MCHC (31.0-37.0) g/dL RDW (11.5-15.5) % Plt Count (150-450) k/uL Neutrophils % % Lymphocytes % % Monocytes % % Eosinophils % % Basophils % % Neutrophils # (1.3-7.7) k/uL Lymphocytes # (1.0-4.8) k/uL Monocytes # (0-1.0) k/uL Eosinophils # (0-0.7) k/uL Basophils # (0-0.2) k/uL PT 10.0 (9.0-12.0) sec INR 1.0 (<1.2) APTT 23.3 (22.0-30.0) sec Sodium (137-145) mmol/L Potassium (3.5-5.1) mmol/L Chloride (98-107) mmol/L Carbon Dioxide (22-30) mmol/L Anion Gap mmol/L BUN (9-20) mg/dL Creatinine (0.66-1.25) mg/dL Est GFR (CKD-EPI)AfAm (>60 ml/min/1.73 sqM) Est GFR (CKD-EPI)NonAf (>60 ml/min/1.73 sqM) Glucose (74-99) mg/dL Calcium (8.4-10.2) mg/dL Magnesium (1.6-2.3) mg/dL Total Bilirubin (0.2-1.3) mg/dL AST (17-59) U/L ALT (21-72) U/L Alkaline Phosphatase (38-126) U/L Total Creatine Kinase (55-170) U/L Total Protein (6.3-8.2) g/dL Albumin (3.5-5.0) g/dL Disposition Clinical Impression: Bradycardia, Dyspnea on exertion Disposition: ADMITTED IP TO THIS HOSP Referrals: [facility],Clinic [REFERRING] - 1-2 days Time of Disposition: 15:02
--- NOTE | 2018-06-05 14:26 | XR ---
EXAMINATION TYPE: XR chest 2V DATE OF EXAM: 06/05/2018 COMPARISON: Prior chest x-ray dated 04/03/2014 HISTORY: Chest pain TECHNIQUE: Frontal and lateral views of the chest are obtained. FINDINGS: There is no focal air space opacity, pleural effusion, or pneumothorax seen. The cardiac silhouette size is within normal limits. The osseous structures are intact. There are overlying cardiac leads. Old healed right-sided rib fractures noted posteriorly. Some calci fication noted over the right lower chest as on prior exam shows a nonaggressive appearance. Prominen t lung volumes suggest underlying COPD. There are coronary artery calcifications. The right shoulder is high riding which may be due to chronic rotator cuff tear. IMPRESSION: No acute cardiopulmonary process. Stable exam. Additional findings above.
[2018-06-05 14:29] LABS: Partial Thromboplastin Time 23.3 sec (22.0-30.0)
[2018-06-05 14:30] LABS: ALT 39 U/L (21-72); AST 32 U/L (17-59); Albumin 4.3 g/dL (3.5-5.0); Alkaline Phosphatase 86 U/L (38-126); Anion Gap 10 mmol/L; Blood Urea Nitrogen 12 mg/dL (9-20); Calcium 9.3 mg/dL (8.4-10.2); Carbon Dioxide 21 mmol/L (22-30); Chloride 100 mmol/L (98-107); Glucose 93 mg/dL (74-99); Magnesium 1.9 mg/dL (1.6-2.3); Potassium 4.2 mmol/L (3.5-5.1); Sodium 131 mmol/L (137-145); Total Bilirubin 0.8 mg/dL (0.2-1.3); Total Protein 6.9 g/dL (6.3-8.2)
[2018-06-05 14:49] LABS: Creatine Kinase 155 U/L (55-170)
[2018-06-05 15:02] LABS: Troponin I <0.012 ng/mL (0.000-0.034)
[2018-06-05] MEDS ORDERED: NITROGLYCERIN SL TABS 0.4 MG TAB SUBLINGUAL PRN (15:03)
[2018-06-05 15:04] LABS: Creatine Kinase MB 3.1 ng/mL (0.0-2.4)
[2018-06-05] MEDS ORDERED: NAPROXEN 250 MG TAB PO PRN (17:59)
[2018-06-05] MEDS ORDERED: IPRATROPIUM-ALBUTEROL 3 ML NEB INHALATION PRN (18:00)
[2018-06-05] MEDS: PANTOPRAZOLE 40 MG/10 ML VIAL IVP SCH (19:09)
[2018-06-05] MEDS: SODIUM CHLORIDE 0.9% 1,000 ML IV SCH (19:09)
[2018-06-05] MEDS: SYMBICORT 160-4.5 MCG INHALER INHALATION SCH (20:23)
[2018-06-05] MEDS: IPRATROPIUM-ALBUTEROL 3 ML NEB INHALATION SCH (20:23)
[2018-06-05 20:27] LABS: Creatine Kinase 125 U/L (55-170)
[2018-06-05 20:41] LABS: Creatine Kinase MB 2.4 ng/mL (0.0-2.4); Troponin I <0.012 ng/mL (0.000-0.034)
[2018-06-06 02:49] LABS: Basophils % (A) 1 %; Eosinophils # (A) 0.3 k/uL (0-0.7); Eosinophils % (A) 5 %; HCT 39.2 % (39.0-53.0); HGB 12.9 gm/dL (13.0-17.5); Lymphocytes # (A) 1.7 k/uL (1.0-4.8); Lymphocytes % (A) 33 %; MCH 30.1 pg (25.0-35.0); MCV 91.3 fL (80.0-100.0); Mean Platelet Volume 7.2; Monocytes # (A) 0.5 k/uL (0-1.0); Monocytes % (A) 9 %; Neutrophils # (A) 2.7 k/uL (1.3-7.7); Neutrophils % (A) 51 %; Platelet Count 152 k/uL (150-450); RBC 4.29 m/uL (4.30-5.90); RDW 14.5 % (11.5-15.5); WBC 5.3 k/uL (3.8-10.6)
[2018-06-06 03:11] LABS: Anion Gap 7 mmol/L; Blood Urea Nitrogen 14 mg/dL (9-20); Calcium 8.6 mg/dL (8.4-10.2); Carbon Dioxide 24 mmol/L (22-30); Chloride 100 mmol/L (98-107); Cholesterol 170 mg/dL (<200); Glucose 89 mg/dL (74-99); HDL Cholesterol 87 mg/dL (40-60); LDL Cholesterol,Calculated 76 mg/dL (0-99); Potassium 3.9 mmol/L (3.5-5.1); Sodium 131 mmol/L (137-145); Triglycerides 34 mg/dL (<150)
[2018-06-06 03:15] LABS: Creatine Kinase 110 U/L (55-170)
[2018-06-06 03:27] LABS: Troponin I <0.012 ng/mL (0.000-0.034)
[2018-06-06] MEDS: PANTOPRAZOLE 40 MG/10 ML VIAL IVP SCH (08:40)
[2018-06-06] MEDS: SYMBICORT 160-4.5 MCG INHALER INHALATION SCH ×2 (08:42→20:18)
[2018-06-06] MEDS: IPRATROPIUM-ALBUTEROL 3 ML NEB INHALATION SCH ×4 (08:42→16:53)
[2018-06-06] MEDS ORDERED: ASPIRIN 325 MG TAB PO SCH ×2 (09:00)
--- NOTE | 2018-06-06 10:00 | P.CRDCN ---
History of Present Illness Consult date: 06/06/18 Chief complaint: Shortness of breath History of present illness: This is a pleasant 82-year-old gentleman with a past medical history significant for COPD and hypertension presented to the hospital complaining of shortness of breath. The patient was referred to have a stress test at the [facility] yesterday when this test was canceled because the EKG was abnormal and the patient was referred to go to the emergency room. When he arrived to the emergency room, he was bradycardic. The heart rate has been in the 40s. The EKG showed sinus rhythm with complete heart block. During the night the patient was experiencing heart rate in the 40s and in the 50s. Into above symptoms, he does have exertional dyspnea related to COPD but over the last year the shortness of breath has progressed significantly. He did have an episode of syncope also about a year ago. Beside that he did have multiple episodes of presyncope. He feels also some dizziness and lightheadedness every once a while. No chest pain or chest discomfort. The patient does not have any history of coronary artery disease or congestive heart failure or any history of cardiac arrhythmia in the past. 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 He was not on any AV oren kya agents at home. The EKG showed sinus rhythm was complete heart block. The chest x-ray did not show any acute abnormalities. Cardiac enzymes were checked and came in to be unremarkable. The patient is not aware of any history of hypo-or hyperthyroidism. I did discuss with the patient the possible need for permanent pacemaker. Meanwhile I will obtain an echocardiogram was Doppler and also TSH and follow- up with him. Past Medical History Past Medical History: Cancer, COPD, GERD/Reflux, Hypertension, Osteoarthritis ( OA) Additional Past Medical History / Comment(s): prostate ca dx -had sx only, Bronchitis, arthritis bilateral hands and hips, benign colon polypectomy, hiatal hernia, hernia after prostate sx. pt stated he gets up 3-4 times a night to urinate and has had dizzy spells at times History of Any Multi-Drug Resistant Organisms: None Reported, MRSA Date of last positivie culture/infection: 2012 MDRO Source:: sputum Past Surgical History: Cholecystectomy, Hernia Repair, Orthopedic Surgery, Prostate Surgery Additional Past Surgical History / Comment(s): CATARACT SX, R inguinal HERNIA REPAIR, colonoscopy with benign polyp, amputation L pinky finger, lap prosatectomy w/ srinivas pelvic lymphadenectomy 11-23-17 Past Anesthesia/Blood Transfusion Reactions: No Reported Reaction Smoking Status: Former smoker - Past Family History Brother(s) Family Medical History: No Reported History Father Family Medical History: Cancer Additional Family Medical History / Comment(s): Father of lung cancer. He was a smoker. Mother Family Medical History: Coronary Artery Disease (CAD), Hypertension, Myocardial Infarction ([place]) Additional Family Medical History / Comment(s): Mother at the age of 72yrs. Medications and Allergies Home Medications Medication Instructions Recorded Confirmed Type Albuterol Inhaler [Ventolin Hfa 2 puff INHALATION RT-Q4H PRN 04/04/14 06/05/18 History Inhaler] Budesonide-Formot 160-4.5 Mcg 2 puff INHALATION RT-BID 04/04/14 06/05/18 History [Symbicort 160-4.5 Mcg Inhaler] Tiotropium [place] [Spiriva] 18 mcg IH RT-DAILY 04/04/14 06/05/18 History Albuterol Nebulized (Conc) 2.5 mg INHALATION RT-QID PRN 04/10/17 06/05/18 History [Ventolin Nebulized (Conc)] Lysine 500 mg PO DAILY 11/20/17 06/05/18 History Aspirin 325 mg PO DAILY 06/05/18 06/05/18 History NIFEdipine [NIFEdipine ER] 30 mg PO DAILY 06/05/18 06/05/18 History Naproxen Sodium [Aleve] 220 mg PO Q12HR PRN 06/05/18 06/05/18 History rOPINIRole HCL [Requip] 0.5 mg PO HS 06/05/18 06/05/18 History Allergies Allergy/AdvReac Type Severity Reaction Status Date / Time latex Allergy red skin Verified 06/05/18 15:13 laundry soap Allergy Itching Uncoded 06/05/18 13:52 Physical Exam Vitals: Vital Signs Temp Pulse Pulse Resp BP BP Pulse Ox 06/06/18 08:53 83 06/06/18 08:43 82 06/06/18 08:36 97.6 F 40 L 157/76 97 06/06/18 03:08 97.3 F L 35 L 16 144/70 95 06/06/18 00:00 96.5 F L 41 L 16 169/70 97 06/05/18 20:35 80 06/05/18 20:24 78 06/05/18 20:00 41 L 06/05/18 19:52 97.2 F L 41 L 16 137/68 95 06/05/18 17:19 97.5 F L 41 L 18 132/62 98 06/05/18 15:49 41 L 18 153/72 98 06/05/18 15:29 45 L 18 06/05/18 13:50 98.7 F 47 L 20 151/81 97 Intake and Output 06/05/18 06/06/18 06/06/18 22:59 06:59 14:59 Intake Total 240 880 Balance 240 880 Intake: IV 880 Sodium Chloride 0.9% 1, 880 000 ml @ 60 mls/hr IV . [id number] [facility] Rx#:[id number] Oral 240 Other: # Voids 1 600 Weight 61.3 kg - Constitutional General appearance: no acute distress - Respiratory Respiratory: bilateral: CTA - Cardiovascular Rhythm: regular Heart sounds: normal: S1, S2 Results 06/06/18 02:25 06/06/18 02:25 Cardiac Enzymes 06/05/18 06/05/18 06/05/18 Range/Units 14:09 14:09 19:39 AST 32 (17-59) U/L CK-MB (CK-2) 3.1 H* 2.4 (0.0-2.4) ng/mL Troponin I <0.012 <0.012 (0.000-0.034) ng/mL 06/06/18 Range/Units 02:25 AST (17-59) U/L CK-MB (CK-2) 2.0 (0.0-2.4) ng/mL Troponin I <0.012 (0.000-0.034) ng/mL Coagulation 06/05/18 Range/Units 14:09 PT 10.0 (9.0-12.0) sec APTT 23.3 (22.0-30.0) sec Lipids 06/06/18 Range/Units 02:25 Triglycerides 34 (<150) mg/dL Cholesterol 170 (<200) mg/dL HDL Cholesterol 87 H (40-60) mg/dL CBC 06/05/18 06/06/18 Range/Units 14:09 02:25 WBC 6.9 5.3 (3.8-10.6) k/uL RBC 5.03 4.29 L (4.30-5.90) m/uL Hgb 14.6 12.9 L (13.0-17.5) gm/dL Hct 45.0 39.2 (39.0-53.0) % Plt Count 172 152 (150-450) k/uL Comprehensive Metabolic Panel 06/05/18 06/06/18 Range/Units 14:09 02:25 Sodium 131 L 131 L (137-145) mmol/L Potassium 4.2 3.9 (3.5-5.1) mmol/L Chloride 100 100 (98-107) mmol/L Carbon Dioxide 21 L 24 (22-30) mmol/L BUN 12 14 (9-20) mg/dL Creatinine 0.70 0.80 (0.66-1.25) mg/dL Glucose 93 89 (74-99) mg/dL Calcium 9.3 8.6 (8.4-10.2) mg/dL AST 32 (17-59) U/L ALT 39 (21-72) U/L Alkaline Phosphatase 86 (38-126) U/L Total Protein 6.9 (6.3-8.2) g/dL Albumin 4.3 (3.5-5.0) g/dL Current Medications Generic Name Dose Route Start Last Admin Trade Name Freq PRN Reason Stop Dose Admin Albuterol/Ipratropium 3 ml 06/05/18 20:00 06/06/18 08:42 Duoneb 0.5 Mg-3 Mg/3 Ml Soln INHALATION 3 ml RT-QID [facility] Administration Albuterol/Ipratropium 3 ml 06/05/18 18:00 Duoneb 0.5 Mg-3 Mg/3 Ml Soln INHALATION RT-Q2H PRN Shortness Of Breath Or Wheezing Budesonide/Formoterol Fumarate 2 puff 06/05/18 20:00 06/06/18 08:42 Symbicort 160-4.5 Mcg Inhaler INHALATION 2 puff RT-BID ADRI Administration Sodium Chloride 1,000 mls @ 60 mls/hr 06/05/18 18:15 06/05/18 19:09 Saline 0.9% IV 60 mls/hr .[id number] [facility] Administration Naproxen 250 mg 06/05/18 17:59 Naprosyn PO Q12HR PRN Pain Nitroglycerin 0.4 mg 06/05/18 15:03 Nitrostat SUBLINGUAL Q5M PRN Chest Pain Pantoprazole Sodium 40 mg 06/05/18 18:15 06/05/18 19:09 Protonix IVP 40 mg DAILY [facility]RI Administration Ropinirole HCl 0.5 mg 06/05/18 21:00 06/05/18 21:56 Requip PO Not Given HS [facility]RI Intake and Output 06/05/18 06/06/18 06/06/18 22:59 06:59 14:59 Intake Total 240 880 Balance 240 880 Intake: IV 880 Sodium Chloride 0.9% 1, 880 000 ml @ 60 mls/hr IV . [id number] [facility] Rx#:[id number] Oral 240 Other: # Voids 1 600 Weight 61.3 kg 06/06/18 02:25 06/06/18 02:25 Assessment and Plan Assessment: Assessment #1 complete heart block #2 bradycardia secondary to the above #3 dizziness and lightheadedness and presyncope secondary to above #4 COPD #5 hypertension Plan #1 thyroid disorder to be ruled out. #2 we'll obtain an echocardiogram was Doppler to assess the LV function #3 permanent pacemaker implantation in the next 24 hours. Thank you for allowing us participate in his care and we will continue following up with the patient
--- NOTE | 2018-06-06 11:18 | P.HPIM ---
History of Present Illness H&P Date: 06/06/18 Chief Complaint: Bradycardia and dyspnea with exertion This is an 82-year-old male patient who follows with the [place]. Patient was sent to the emergency room from the [facility] today and they told him he was severely bradycardic any discomfort to the emergency department immediately. Patient does state that over the past year he has noticed he becomes very short of breath whenever he exerts himself. Patient also that he has been becoming increasingly more fatigued. Patient has known past medical history of prostate cancer, COPD, GERD, hypertension and osteoarthritis. Chest x-ray completed emergency room showing no acute cardiopulmonary process. Stable exam. EKG completed in emergency room showing marked sinus bradycardia with rhythm 45. Troponin levels have been negative. Cardiology services have been consulted. Per cardiology patient is in complete heart block. TSH level has been ordered. 2-D echo have also ordered per cardiology. Plan for permanent pacemaker implantation in the next 24 hours per cardiology. Patient denies chest pain or shortness of breath at rest. Patient denies nausea vomiting or diarrhea. Patient denies urinary burning or frequency. Review of Systems Please refer to HPI otherwise unremarkable Past Medical History Past Medical History: Cancer, COPD, GERD/Reflux, Hypertension, Osteoarthritis ( OA) Additional Past Medical History / Comment(s): prostate ca dx -had sx only, Bronchitis, arthritis bilateral hands and hips, benign colon polypectomy, hiatal hernia, hernia after prostate sx. pt stated he gets up 3-4 times a night to urinate and has had dizzy spells at times History of Any Multi-Drug Resistant Organisms: None Reported, MRSA Date of last positivie culture/infection: 2012 MDRO Source:: sputum Past Surgical History: Cholecystectomy, Hernia Repair, Orthopedic Surgery, Prostate Surgery Additional Past Surgical History / Comment(s): CATARACT SX, R inguinal HERNIA REPAIR, colonoscopy with benign polyp, amputation L pinky finger, lap prosatectomy w/ srinivas pelvic lymphadenectomy 11-23-17 Past Anesthesia/Blood Transfusion Reactions: No Reported Reaction Smoking Status: Former smoker - Past Family History Brother(s) Family Medical History: No Reported History Father Family Medical History: Cancer Additional Family Medical History / Comment(s): Father of lung cancer. He was a smoker. Mother Family Medical History: Coronary Artery Disease (CAD), Hypertension, Myocardial Infarction ([place]) Additional Family Medical History / Comment(s): Mother at the age of 72yrs. Medications and Allergies Home Medications Medication Instructions Recorded Confirmed Type Albuterol Inhaler [Ventolin Hfa 2 puff INHALATION RT-Q4H PRN 04/04/14 06/05/18 History Inhaler] Budesonide-Formot 160-4.5 Mcg 2 puff INHALATION RT-BID 04/04/14 06/05/18 History [Symbicort 160-4.5 Mcg Inhaler] Tiotropium [place] [Spiriva] 18 mcg IH RT-DAILY 04/04/14 06/05/18 History Albuterol Nebulized (Conc) 2.5 mg INHALATION RT-QID PRN 04/10/17 06/05/18 History [Ventolin Nebulized (Conc)] Lysine 500 mg PO DAILY 11/20/17 06/05/18 History Aspirin 325 mg PO DAILY 06/05/18 06/05/18 History NIFEdipine [NIFEdipine ER] 30 mg PO DAILY 06/05/18 06/05/18 History Naproxen Sodium [Aleve] 220 mg PO Q12HR PRN 06/05/18 06/05/18 History rOPINIRole HCL [Requip] 0.5 mg PO HS 06/05/18 06/05/18 History Allergies Allergy/AdvReac Type Severity Reaction Status Date / Time latex Allergy red skin Verified 06/05/18 15:13 laundry soap Allergy Itching Uncoded 06/05/18 13:52 Physical Exam Vitals: Vital Signs Temp Pulse Pulse Resp BP BP Pulse Ox 06/06/18 08:53 83 06/06/18 08:43 82 06/06/18 08:36 97.6 F 40 L 157/76 97 06/06/18 03:08 97.3 F L 35 L 16 144/70 95 06/06/18 00:00 96.5 F L 41 L 16 169/70 97 06/05/18 20:35 80 06/05/18 20:24 78 06/05/18 20:00 41 L 06/05/18 19:52 97.2 F L 41 L 16 137/68 95 06/05/18 17:19 97.5 F L 41 L 18 132/62 98 06/05/18 15:49 41 L 18 153/72 98 08/22/18 15:29 45 L 18 06/05/18 13:50 98.7 F 47 L 20 151/81 97 Intake and Output 06/05/18 06/06/18 06/06/18 22:59 06:59 14:59 Intake Total 240 880 Output Total 300 Balance 240 880 -300 Intake: IV 880 Sodium Chloride 0.9% 1, 880 000 ml @ 60 mls/hr IV . [id number] [facility] Rx#:[id number] Oral 240 Output: Urine 300 Other: # Voids 1 600 Weight 61.3 kg Head normocephalic Neck supple Lungs clear to auscultation bilaterally no wheezing or crackles Heart regular rate and rhythm S1-S2, no rub or gallop Abdomen is soft nontender nondistended positive bowel sounds no hepatosplenomegaly Extremities no edema Neuro alert and orientated to 3 Results CBC & Chem 7: 06/06/18 02:25 06/06/18 02:25 Labs: Abnormal Lab Results - Last 24 Hours (Table) 06/05/18 06/05/18 06/06/18 Range/Units 14:09 14:09 02:25 RBC (4.30-5.90) m/uL Hgb (13.0-17.5) gm/dL Sodium 131 L 131 L (137-145) mmol/L Carbon Dioxide 21 L (22-30) mmol/L CK-MB (CK-2) 3.1 H* (0.0-2.4) ng/mL HDL Cholesterol 87 H (40-60) mg/dL 06/06/18 Range/Units 02:25 RBC 4.29 L (4.30-5.90) m/uL Hgb 12.9 L (13.0-17.5) gm/dL Sodium (137-145) mmol/L Carbon Dioxide (22-30) mmol/L CK-MB (CK-2) (0.0-2.4) ng/mL HDL Cholesterol (40-60) mg/dL Thrombosis Risk Factor Assmnt - Choose All That Apply Each Risk Factor Represents 3 Points: Age 75 years or older Thrombosis Risk Factor Assessment Total Risk Factor Score: 3 Thrombosis Risk Factor Assessment Level: Moderate Risk Assessment and Plan Assessment: 1. Symptomatic bradycardic related to complete heart block. Cardiology services have been consulted. EKG showing marked sinus bradycardia with rate 45. 2-D echo and TSH level has been ordered. Plan for pacemaker implantation the next 24 hours per cardiology. 2. History of COPD. Chest x-ray in completed emergency room showing no acute cardiopulmonary process. No signs of exacerbation at this time. Continue DuoNeb nebulizers. 3. Essential hypertension 4. History of prostate cancer DVT prophylaxis SCDs due to pacer implantation. GI prophylaxis Protonix Time with Patient: Greater than 30 (Greater than 60% of the total time spent in counseling and coordination of care.I performed an examination of the patient and discussed their management with the Nurse Practitioner. I have reviewed the Nurse Practitioner's notes and agree with the documented findings and plan of care)
[2018-06-06] MEDS: SODIUM CHLORIDE 0.9% 1,000 ML IV SCH (11:20)
[2018-06-06] MEDS: NIFEdipine XL 30 MG TAB.ER.24 PO SCH (12:14)
--- NOTE | 2018-06-06 12:31 | ECHOF ---
Referral Reason:bradycardia MEASUREMENTS -------- HEIGHT: 152.4 cm WEIGHT: 61.2 kg BP: 157/76 RVIDd: 2.6 cm (< 3.3) IVSd: 1.0 cm (0.6 - 1.1) LVIDd: 3.6 cm (3.9 - 5.3) LVPWd: 1.2 cm (0.6 - 1.1) IVSs: 1.7 cm LVIDs: 1.9 cm LVPWs: 1.8 cm LAESV Index (A-L): 31.26 ml/m Ao Diam: 2.9 cm (2.0 - 3.7) AV Cusp: 1.5 cm (1.5 - 2.6) LA Diam: 3.1 cm (2.7 - 3.8) MV E Spencer: 0.56 m/s MV DecT: 319 ms MV A Spencer: 1.03 m/s MV E/A Ratio: 0.68 AV maxP.77 mmHg AV meanP.14 mmHg AR PHT: 904 ms RAP: 15.00 mmHg RVSP: 51.26 mmHg FINDINGS -------- Sinus rhythm. Resting bradycardia (HR<60bpm). This was a technically adequate study. The left ventricular size is normal. There is borderline concentric left ventricular hypertrophy. Overall left ventricular systolic function is normal with, an EF between 55 - 60 %. The right ventricle is normal in size and function. LA is midly dilated 29-33ml/m2. The right atrium is normal in size. There is mild aortic valve sclerosis. There is mild aortic regurgitation. Mild mitral annular calcification present. Mild mitral regurgitation is present. Mild tricuspid regurgitation present. There is moderate pulmonary hypertension. The right ventric ular systolic pressure, as measured by Doppler, is 51.26mmHg. There is no pulmonic regurgitation present. The aortic root size is normal. The inferior vena cava is mildly dilated. There is no pericardial effusion. CONCLUSIONS -------- 1. Sinus rhythm. 2. Resting bradycardia (HR<60bpm). 3. This was a technically adequate study. 4. The left ventricular size is normal. 5. There is borderline concentric left ventricular hypertrophy. 6. Overall left ventricular systolic function is normal with, an EF between 55 - 60 %. 7. LA is midly dilated 29-33ml/m2. 8. There is mild aortic valve sclerosis. 9. There is mild aortic regurgitation. 10. Mild mitral annular calcification present. 11. Mild mitral regurgitation is present. 12. Mild tricuspid regurgitation present. 13. There is moderate pulmonary hypertension. 14. There is no pulmonic regurgitation present. 15. The aortic root size is normal. 16. The inferior vena cava is mildly dilated. 17. There is no pericardial effusion. DOMESTIC HOUSEKEEPER: Vianney Carty RDCS
[2018-06-07] MEDS: PANTOPRAZOLE 40 MG TABLET PO SCH (06:21)
[2018-06-07 06:55] LABS: Basophils % (A) 1 %; Eosinophils # (A) 0.3 k/uL (0-0.7); Eosinophils % (A) 6 %; HCT 45.5 % (39.0-53.0); HGB 14.6 gm/dL (13.0-17.5); Lymphocytes # (A) 1.5 k/uL (1.0-4.8); Lymphocytes % (A) 27 %; MCH 29.3 pg (25.0-35.0); MCHC 32.1 g/dL (31.0-37.0); MCV 91.3 fL (80.0-100.0); Mean Platelet Volume 7.1; Monocytes # (A) 0.5 k/uL (0-1.0); Monocytes % (A) 9 %; Neutrophils # (A) 3.1 k/uL (1.3-7.7); Neutrophils % (A) 55 %; Platelet Count 181 k/uL (150-450); RBC 4.98 m/uL (4.30-5.90); RDW 14.5 % (11.5-15.5); WBC 5.6 k/uL (3.8-10.6)
[2018-06-07 07:31] LABS: Anion Gap 9 mmol/L; Blood Urea Nitrogen 11 mg/dL (9-20); Calcium 9.2 mg/dL (8.4-10.2); Carbon Dioxide 24 mmol/L (22-30); Chloride 100 mmol/L (98-107); Glucose 85 mg/dL (74-99); Potassium 4.3 mmol/L (3.5-5.1); Sodium 133 mmol/L (137-145)
[2018-06-07] MEDS: IPRATROPIUM-ALBUTEROL 3 ML NEB INHALATION SCH ×4 (07:35→20:01)
[2018-06-07] MEDS: SYMBICORT 160-4.5 MCG INHALER INHALATION SCH ×2 (07:35→20:01)
[2018-06-07] MEDS: SODIUM CHLORIDE 0.9% 1,000 ML IV SCH ×2 (08:43→17:08)
[2018-06-07] MEDS: NIFEdipine XL 30 MG TAB.ER.24 PO SCH (08:43)
--- NOTE | 2018-06-07 08:57 | P.PN ---
Subjective Progress Note Date: 06/07/18 Principal diagnosis: Symptomatic bradycardia This is a pleasant 82-year-old gentleman with a past medical history significant for COPD and hypertension presented to the hospital complaining of shortness of breath. The patient was referred to have a stress test at the [facility] yesterday when this test was canceled because the EKG was abnormal and the patient was referred to go to the emergency room. When he arrived to the emergency room, he was bradycardic. The heart rate has been in the 40s. The EKG showed sinus rhythm with complete heart block. During the night the patient was experiencing heart rate in the 40s and in the 50s. Into above symptoms, he does have exertional dyspnea related to COPD but over the last year the shortness of breath has progressed significantly. He did have an episode of syncope also about a year ago. Beside that he did have multiple episodes of presyncope. He feels also some dizziness and lightheadedness every once a while. No chest pain or chest discomfort. The patient does not have any history of coronary artery disease or congestive heart failure or any history of cardiac arrhythmia in the past. 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 He was not on any AV oren kya agents at home. The EKG showed sinus rhythm was complete heart block. The chest x-ray did not show any acute abnormalities. Cardiac enzymes were checked and came in to be unremarkable. The patient is not aware of any history of hypo-or hyperthyroidis. The echocardiogram revealed normal LV function was moderate pulmonary hypertension. The TSH was checked and came in to be at 4.16 which is within normal limits. I did tell the patient that he needs to have a permanent pacemaker implantation and as a matter of fact I did speak with Dr. Rodrigues who is going to do the pacemaker this coming Sunday. Objective - Vital Signs Vital signs: Vital Signs Temp 97.2 F L 06/06/18 20:00 Pulse 77 06/07/18 07:45 Resp 16 06/07/18 04:00 BP 158/72 06/07/18 04:00 Pulse Ox 95 06/07/18 04:00 Intake & Output 06/06/18 06/07/18 06/07/18 18:59 06:59 18:59 Intake Total 180 Output Total 700 950 Balance -520 -950 Weight 60.6 kg Intake: Oral 180 Output: Urine 700 950 Other: # Voids 1 3 - Constitutional General appearance: Present: no acute distress - Respiratory Respiratory: bilateral: CTA - Cardiovascular Rhythm: regular Heart sounds: normal: S1, S2 - Labs CBC & Chem 7: 06/07/18 06:06 06/07/18 06:06 Labs: Abnormal Lab Results - Last 24 Hours (Table) 06/07/18 Range/Units 06:06 Sodium 133 L (137-145) mmol/L Assessment and Plan Assessment: Assessment #1 advanced AV block. The patient is in second degree type II AV block #2 bradycardia secondary to the above #3 dizziness and lightheadedness and presyncope secondary to above #4 COPD #5 hypertension Plan #1 the TSH was checked and came in to be on the upper limits of normal #2 echocardiogram revealed normal LV function was moderate pulmonary hypertension #3 the patient need to have a permanent pacemaker. This will be done this coming Sunday.
--- NOTE | 2018-06-07 12:18 | P.PN ---
Subjective Progress Note Date: 06/07/18 This is an 82-year-old male patient who follows with the [place]. Patient was sent to the emergency room from the [facility] today and they told him he was severely bradycardic any discomfort to the emergency department immediately. Patient does state that over the past year he has noticed he becomes very short of breath whenever he exerts himself. Patient also that he has been becoming increasingly more fatigued. Patient has known past medical history of prostate cancer, COPD, GERD, hypertension and osteoarthritis. Chest x-ray completed emergency room showing no acute cardiopulmonary process. Stable exam. EKG completed in emergency room showing marked sinus bradycardia with rhythm 45. Troponin levels have been negative. Cardiology services have been consulted. Per cardiology patient is in complete heart block. TSH level has been ordered. 2-D echo have also ordered per cardiology. Plan for permanent pacemaker implantation in the next 24 hours per cardiology. Patient denies chest pain or shortness of breath at rest. Patient denies nausea vomiting or diarrhea. Patient denies urinary burning or frequency. 06/07/2018 patient lying in bed comfortably. Heart rate ranges from the 30s to 40s. He is scheduled for pacemaker placement tomorrow. TSH normal at 4.060. Echo shows an EF of 55-60% and moderate pulmonary hypertension. Patient reports having regular bowel movements. Denies any decreased with urinating. Denies any chest pain or shortness breath Objective - Vital Signs Vital signs: Vital Signs Temp 96.3 F L 06/07/18 08:50 Pulse 40 L 06/07/18 08:50 Resp 16 06/07/18 08:50 BP 147/67 06/07/18 08:50 Pulse Ox 96 06/07/18 08:50 Intake & Output 06/06/18 06/07/18 06/07/18 18:59 06:59 18:59 Intake Total 180 Output Total 700 950 Balance -520 -950 Weight 60.6 kg Intake: Oral 180 Output: Urine 700 950 Other: # Voids 1 3 1 # Bowel Movements 0 - Exam Head normocephalic Neck supple Lungs clear to auscultation bilaterally no wheezing or crackles Heart bradycardic Abdomen is soft nontender nondistended positive bowel sounds no hepatosplenomegaly Extremities no edema Neuro alert and orientated to 3 - Labs CBC & Chem 7: 06/07/18 06:06 06/07/18 06:06 Labs: Abnormal Lab Results - Last 24 Hours (Table) 06/07/18 Range/Units 06:06 Sodium 133 L (137-145) mmol/L Assessment and Plan Assessment: 1. Symptomatic bradycardic related to second degree type II heart block. Cardiology services have been consulted. EKG showing marked sinus bradycardia with rate 45. Patient be scheduled for pacemaker placement tomorrow with Dr. Baumann. Thyroid level normal. Echo shows a normal EF 55-60% 2. History of COPD. Chest x-ray in completed emergency room showing no acute cardiopulmonary process. No signs of exacerbation at this time. Continue DuoNeb nebulizers. 3. Essential hypertension 4. History of prostate cancer 5. Hyponatremia sodium level improving with IV fluids. Continue to monitor. Sodium level 133 DVT prophylaxis SCDs due to pacer implantation. GI prophylaxis Protonix
[2018-06-08] MEDS: PANTOPRAZOLE 40 MG TABLET PO SCH (06:25)
[2018-06-08 06:52] LABS: Basophils % (A) 1 %; Eosinophils # (A) 0.3 k/uL (0-0.7); Eosinophils % (A) 6 %; HCT 43.3 % (39.0-53.0); HGB 14.4 gm/dL (13.0-17.5); Lymphocytes # (A) 1.1 k/uL (1.0-4.8); Lymphocytes % (A) 23 %; MCH 30.4 pg (25.0-35.0); MCHC 33.3 g/dL (31.0-37.0); MCV 91.2 fL (80.0-100.0); Monocytes # (A) 0.5 k/uL (0-1.0); Monocytes % (A) 9 %; Neutrophils # (A) 2.9 k/uL (1.3-7.7); Neutrophils % (A) 58 %; Platelet Count 140 k/uL (150-450); RBC 4.74 m/uL (4.30-5.90); RDW 14.4 % (11.5-15.5); WBC 4.9 k/uL (3.8-10.6)
[2018-06-08 07:06] LABS: Anion Gap 8 mmol/L; Blood Urea Nitrogen 15 mg/dL (9-20); Calcium 9.3 mg/dL (8.4-10.2); Carbon Dioxide 25 mmol/L (22-30); Chloride 99 mmol/L (98-107); Glucose 91 mg/dL (74-99); Potassium 4.6 mmol/L (3.5-5.1); Sodium 132 mmol/L (137-145)
[2018-06-08] MEDS: SODIUM CHLORIDE 0.9% 1,000 ML IV SCH (07:56)
[2018-06-08] MEDS: IPRATROPIUM-ALBUTEROL 3 ML NEB INHALATION SCH ×4 (08:09→20:20)
[2018-06-08] MEDS: SYMBICORT 160-4.5 MCG INHALER INHALATION SCH ×2 (08:09→20:20)
[2018-06-08] MEDS: NIFEdipine XL 30 MG TAB.ER.24 PO SCH (09:53)
[2018-06-08] MEDS ORDERED: SODIUM CHLORIDE 0.9% 1,000 ML IV SCH ×2 (11:15)
--- NOTE | 2018-06-08 12:12 | PN ---
PROGRESS NOTE Mr. Seaman is an 82-year-old male patient who was admitted with an abnormal ECG. He underwent a stress test at the [facility] and was noted to be in 2 to 1 heart block. Previous to that, his 12-lead ECG had shown AV node Wenckebach block with bradycardia. This gentleman has had several episodes of syncope over the last 2-3 years without a clear-cut diagnosis. He presented with 2 to 1 heart block with bradycardia in the 40s. He did well from a cardiac standpoint. Denies any chest discomfort, dizziness, lightheadedness. He is afebrile, 97.7 degrees Fahrenheit, pulse rate at this time shows one-to-one AV node conduction, heart rate 75 beats per minute. Blood pressure elevated 156/88 mmHg. 2D echo was reviewed and shows normal LV size and systolic function. Moderate pulmonary hypertension. His labs are reviewed. Hemoglobin is 14.4, sodium 132. Kidney function is normal. TSH is normal. IMPRESSION: 1. History of syncope. 2. 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 3. Preserved LV systolic function. 4. Hypertension. SUGGEST: Continue antihypertensive therapy at this time and I would recommend implantation of a dual-chamber pacemaker with an LV lead. In view of his heart block, it is anticipated that his RV pacing percentage will be greater than 50% and therefore he runs risk of developing future cardiomyopathy. I would then proceed with a dual chamber biventricular pacemaker on Sunday. I discussed this with the patient. I discussed the procedure with the patient. I discussed the risks and benefits with the patient. He is agreeable with the plan. I discussed this with the nurse and the preparation was discussed. MMODL / IJN: [id number] /
--- NOTE | 2018-06-08 15:24 | P.PN ---
Subjective Progress Note Date: 06/08/18 This is an 82-year-old male patient who follows with the [facility]. Patient was sent to the emergency room from the [facility] today and they told him he was severely bradycardic any discomfort to the emergency department immediately. Patient does state that over the past year he has noticed he becomes very short of breath whenever he exerts himself. Patient also that he has been becoming increasingly more fatigued. Patient has known past medical history of prostate cancer, COPD, GERD, hypertension and osteoarthritis. Chest x-ray completed emergency room showing no acute cardiopulmonary process. Stable exam. EKG completed in emergency room showing marked sinus bradycardia with rhythm 45. Troponin levels have been negative. Cardiology services have been consulted. Per cardiology patient is in complete heart block. TSH level has been ordered. 2-D echo have also ordered per cardiology. Plan for permanent pacemaker implantation in the next 24 hours per cardiology. Patient denies chest pain or shortness of breath at rest. Patient denies nausea vomiting or diarrhea. Patient denies urinary burning or frequency. 06/07/2018 patient lying in bed comfortably. Heart rate ranges from the 30s to 40s. He is scheduled for pacemaker placement tomorrow. TSH normal at 4.060. Echo shows an EF of 55-60% and moderate pulmonary hypertension. Patient reports having regular bowel movements. Denies any decreased with urinating. Denies any chest pain or shortness breath On 06/08/2018 patient is alert and oriented 3 in no apparent distress has significant bradycardia otherwise no complaints there is no dizziness no chest pain no shortness of breath no cough no nausea or vomiting no abdominal pain no diarrhea and no urinary symptoms Objective - Vital Signs Vital signs: Vital Signs Temp 97.5 F L 06/08/18 11:02 Pulse 73 06/08/18 11:09 Resp 16 06/08/18 11:09 BP 154/88 06/08/18 11:02 Pulse Ox 95 06/08/18 11:02 Intake & Output 06/07/18 06/08/18 06/08/18 18:59 06:59 18:59 Intake Total 360 400 Balance 360 400 Weight 61.1 kg Intake: IV 40 Invasive Line 1 30 Invasive Line 2 10 Sodium Chloride 0.9% 1, 0 000 ml @ 60 mls/hr IV . [id number] [facility] Rx#:[id number] Oral 360 360 Other: # Voids 1 1 2 # Bowel Movements 0 - Exam Head normocephalic and atraumatic Neck supple no JVD no goiter Lungs clear to auscultation bilaterally no wheezing or crackles Heart bradycardic S1 and S2 no gallops no murmurs Abdomen is soft nontender nondistended positive bowel sounds no hepatosplenomegaly Extremities no edema no cyanosis or clubbing Neuro alert and orientated to 3 - Labs CBC & Chem 7: 06/08/18 06:24 06/08/18 06:24 Labs: Abnormal Lab Results - Last 24 Hours (Table) 06/08/18 06/08/18 Range/Units 06:24 06:24 Plt Count 140 L (150-450) k/uL Sodium 132 L (137-145) mmol/L Assessment and Plan Plan: 1. Symptomatic bradycardic related to second degree type II heart block. Cardiology services have been consulted. EKG showing marked sinus bradycardia with rate 45. Patient be scheduled for pacemaker placement on Sunday by Dr Rodrigues. Thyroid level normal. Echo shows a normal EF 55-60% 2. History of COPD. Chest x-ray in completed emergency room showing no acute cardiopulmonary process. No signs of exacerbation at this time. Continue DuoNeb nebulizers. 3. Essential hypertension 4. History of prostate cancer 5. Hyponatremia sodium level improving with IV fluids. Continue to monitor. Sodium level 133 DVT prophylaxis SCDs due to pacer implantation. GI prophylaxis Protonix
[2018-06-09] MEDS: PANTOPRAZOLE 40 MG TABLET PO SCH (05:19)
[2018-06-09] MEDS: NIFEdipine XL 30 MG TAB.ER.24 PO SCH (07:31)
[2018-06-09] MEDS: SYMBICORT 160-4.5 MCG INHALER INHALATION SCH ×2 (08:13→20:24)
[2018-06-09] MEDS: IPRATROPIUM-ALBUTEROL 3 ML NEB INHALATION SCH ×4 (08:13→20:24)
--- NOTE | 2018-06-09 12:20 | P.PN ---
Subjective Patient is doing well. He sitting up comfortably in bed denies any chest discomfort or loss of consciousness He continues to have intermittent 2-1 heart block with bradycardia Heart sounds are normal breath sounds are clear no rhonchi no crackles Breath sounds are normal Abdomen is soft nontender Extremities warm Heart rate 46, afebrile 97.5F, blood pressure 139/65 mmHg Impression Intermittent third-degree heart block symptomatic, history of syncope Hypertension Suggest Dual-chamber biventricular pacemaker implantation for 2-1 heart block bradycardia symptoms of syncope and to avoid a high RV pacing percentage of greater than 40% and reduce risk of progressive RV pacing related cardiomyopathy and heart failure in the future Pacemaker scheduled for tomorrow Objective - Vital Signs Vital signs: Vital Signs Temp 97.5 F L 06/09/18 11:01 Pulse 46 L 06/09/18 11:52 Resp 16 06/09/18 11:01 BP 139/65 06/09/18 11:01 Pulse Ox 93 L 06/09/18 11:01 Intake & Output 06/08/18 06/09/18 06/09/18 18:59 06:59 18:59 Intake Total 520 260 Balance 520 260 Weight 60.7 kg Intake: IV 40 20 Invasive Line 1 30 20 Invasive Line 2 10 Sodium Chloride 0.9% 1, 0 000 ml @ 60 mls/hr IV . [id number] [facility] Rx#:[id number] Oral 480 240 Other: # Voids 2 2 # Bowel Movements 0 - Labs CBC & Chem 7: 06/08/18 06:24 06/08/18 06:24
--- NOTE | 2018-06-09 15:04 | P.PN ---
Subjective Progress Note Date: 06/09/18 This is an 82-year-old male patient who follows with the [facility]. Patient was sent to the emergency room from the [facility] today and they told him he was severely bradycardic any discomfort to the emergency department immediately. Patient does state that over the past year he has noticed he becomes very short of breath whenever he exerts himself. Patient also that he has been becoming increasingly more fatigued. Patient has known past medical history of prostate cancer, COPD, GERD, hypertension and osteoarthritis. Chest x-ray completed emergency room showing no acute cardiopulmonary process. Stable exam. EKG completed in emergency room showing marked sinus bradycardia with rhythm 45. Troponin levels have been negative. Cardiology services have been consulted. Per cardiology patient is in complete heart block. TSH level has been ordered. 2-D echo have also ordered per cardiology. Plan for permanent pacemaker implantation in the next 24 hours per cardiology. Patient denies chest pain or shortness of breath at rest. Patient denies nausea vomiting or diarrhea. Patient denies urinary burning or frequency. 06/07/2018 patient lying in bed comfortably. Heart rate ranges from the 30s to 40s. He is scheduled for pacemaker placement tomorrow. TSH normal at 4.060. Echo shows an EF of 55-60% and moderate pulmonary hypertension. Patient reports having regular bowel movements. Denies any decreased with urinating. Denies any chest pain or shortness breath On 06/08/2018 patient is alert and oriented 3 in no apparent distress has significant bradycardia otherwise no complaints there is no dizziness no chest pain no shortness of breath no cough no nausea or vomiting no abdominal pain no diarrhea and no urinary symptoms. On 06/09/2018 patient was seen and examined on the telemetry floor, he is alert and oriented 3 he has bradycardia otherwise no complaints there is no dizziness no chest pain no shortness of breath no cough no nausea or vomiting no abdominal pain no diarrhea, no burning with urination no frequency or urgency and no hematuria. Objective - Vital Signs Vital signs: Vital Signs Temp 97.5 F L 06/09/18 11:01 Pulse 46 L 06/09/18 11:52 Resp 16 06/09/18 11:01 BP 139/65 06/09/18 11:01 Pulse Ox 93 L 06/09/18 11:01 Intake & Output 08/25/18 08/26/18 08/26/18 18:59 06:59 18:59 Intake Total 520 500 Balance 520 500 Weight 60.7 kg Intake: IV 40 20 Invasive Line 1 30 20 Invasive Line 2 10 Sodium Chloride 0.9% 1, 0 000 ml @ 60 mls/hr IV . [id number] [facility] Rx#:[id number] Oral 480 480 Other: # Voids 2 2 1 # Bowel Movements 0 - Exam Head normocephalic and atraumatic Neck supple no JVD no goiter Lungs clear to auscultation bilaterally no wheezing or crackles Heart bradycardic S1 and S2 no gallops no murmurs Abdomen is soft nontender nondistended positive bowel sounds no hepatosplenomegaly Extremities no edema no cyanosis or clubbing Neuro alert and orientated to 3 - Labs CBC & Chem 7: 06/08/18 06:24 08 06:24 Assessment and Plan Plan: 1. Symptomatic bradycardic related to second degree type II heart block. Cardiology services have been consulted. EKG showing marked sinus bradycardia with rate 45. Patient be scheduled for pacemaker placement on Sunday by Dr Rodrigues. Thyroid level normal. Echo shows a normal EF 55-60% TSH and free T4 are in normal range 2. History of COPD. Chest x-ray in completed emergency room showing no acute cardiopulmonary process. No signs of exacerbation at this time. Continue DuoNeb nebulizers. 3. Essential hypertension 4. History of prostate cancer 5. Hyponatremia sodium level improving with IV fluids. Continue to monitor. Sodium level 132 DVT prophylaxis SCDs due to pacer implantation. GI prophylaxis Protonix
[2018-06-09 16:32] LABS: Glucose,Whole Blood 91 mg/dL (75-99)
[2018-06-10] MEDS: PANTOPRAZOLE 40 MG TABLET PO SCH (05:58)
[2018-06-10] MEDS: NIFEdipine XL 30 MG TAB.ER.24 PO SCH (07:28)
[2018-06-10] MEDS: SYMBICORT 160-4.5 MCG INHALER INHALATION SCH ×2 (08:29→20:42)
[2018-06-10] MEDS: IPRATROPIUM-ALBUTEROL 3 ML NEB INHALATION SCH ×4 (08:29→20:43)
[2018-06-10] MEDS ORDERED: ceFAZolin IN SWFI 2 GM/20 ML SYRINGE IVP ONE (09:00)
[2018-06-10] MEDS ORDERED: ceFAZolin 1,000 MG in SODIUM CHLORIDE 0.9% IRRIGATIO 250 ML IRRIGATION ONE (09:00)
--- NOTE | 2018-06-10 11:43 | P.PN ---
Subjective Progress Note Date: 06/10/18 This is an 82-year-old male patient who follows with the [facility]. Patient was sent to the emergency room from the [facility] today and they told him he was severely bradycardic any discomfort to the emergency department immediately. Patient does state that over the past year he has noticed he becomes very short of breath whenever he exerts himself. Patient also that he has been becoming increasingly more fatigued. Patient has known past medical history of prostate cancer, COPD, GERD, hypertension and osteoarthritis. Chest x-ray completed emergency room showing no acute cardiopulmonary process. Stable exam. EKG completed in emergency room showing marked sinus bradycardia with rhythm 45. Troponin levels have been negative. Cardiology services have been consulted. Per cardiology patient is in complete heart block. TSH level has been ordered. 2-D echo have also ordered per cardiology. Plan for permanent pacemaker implantation in the next 24 hours per cardiology. Patient denies chest pain or shortness of breath at rest. Patient denies nausea vomiting or diarrhea. Patient denies urinary burning or frequency. 06/07/2018 patient lying in bed comfortably. Heart rate ranges from the 30s to 40s. He is scheduled for pacemaker placement tomorrow. TSH normal at 4.060. Echo shows an EF of 55-60% and moderate pulmonary hypertension. Patient reports having regular bowel movements. Denies any decreased with urinating. Denies any chest pain or shortness breath On 06/08/2018 patient is alert and oriented 3 in no apparent distress has significant bradycardia otherwise no complaints there is no dizziness no chest pain no shortness of breath no cough no nausea or vomiting no abdominal pain no diarrhea and no urinary symptoms. On 06/09/2018 patient was seen and examined on the telemetry floor, he is alert and oriented 3 he has bradycardia otherwise no complaints there is no dizziness no chest pain no shortness of breath no cough no nausea or vomiting no abdominal pain no diarrhea, no burning with urination no frequency or urgency and no hematuria. 06/10/2018 patient is scheduled for pacemaker placement today. He has no new complaints. Objective - Vital Signs Vital signs: Vital Signs Temp 97.0 F L 06/10/18 11:00 Pulse 39 L 06/10/18 11:00 Resp 16 06/10/18 11:00 BP 130/72 06/10/18 11:00 Pulse Ox 96 06/10/18 11:00 Intake & Output 06/09/18 06/10/18 06/10/18 18:59 06:59 18:59 Intake Total 750 30 20 Output Total 0 Balance 750 30 20 Weight 60.9 kg Intake: IV 30 30 20 Invasive Line 1 30 30 10 Invasive Line 2 10 Oral 720 Output: Urine 0 Other: # Voids 1 2 # Bowel Movements 0 0 - Exam Head normocephalic Neck supple Lungs clear to auscultation bilaterally no wheezing or crackles Heart bradycardic Abdomen is soft nontender nondistended positive bowel sounds no hepatosplenomegaly Extremities no edema Neuro alert and orientated to 3 - Labs CBC & Chem 7: 06/08/18 06:24 06/08/18 06:24 Assessment and Plan Assessment: 1. Symptomatic bradycardic related to second degree type II heart block. Cardiology services have been consulted. EKG showing marked sinus bradycardia with rate 45. Patient be scheduled for pacemaker placement tomorrow with Dr. Rodrigues. Thyroid level normal. Echo shows a normal EF 55-60%. Patient is scheduled for pacemaker placement today 2. History of COPD. Chest x-ray in completed emergency room showing no acute cardiopulmonary process. No signs of exacerbation at this time. Continue DuoNeb nebulizers. 3. Essential hypertension 4. History of prostate cancer 5. Hyponatremia sodium level improving with IV fluids. Sodium level pending. DVT prophylaxis SCDs due to pacer implantation. GI prophylaxis Protonix I performed an examination of the patient and discussed their management with the physician Mixer Attendant. I have reviewed the Physician Mixer Attendant's notes and agree with the documented findings and plan of care
[2018-06-10 11:46] LABS: HCT 44.2 % (39.0-53.0); HGB 14.2 gm/dL (13.0-17.5); MCH 29.4 pg (25.0-35.0); MCHC 32.1 g/dL (31.0-37.0); MCV 91.4 fL (80.0-100.0); Mean Platelet Volume 7.2; Platelet Count 164 k/uL (150-450); RBC 4.84 m/uL (4.30-5.90); RDW 14.4 % (11.5-15.5); WBC 5.1 k/uL (3.8-10.6)
[2018-06-10 11:49] LABS: Anion Gap 8 mmol/L; Blood Urea Nitrogen 15 mg/dL (9-20); Calcium 9.1 mg/dL (8.4-10.2); Carbon Dioxide 25 mmol/L (22-30); Chloride 100 mmol/L (98-107); Glucose 84 mg/dL (74-99); Potassium 4.6 mmol/L (3.5-5.1); Sodium 133 mmol/L (137-145)
[2018-06-10] MEDS ORDERED: fentaNYL (PF) 50 MCG/ML 2 ML AMP ONE (16:36)
[2018-06-10] MEDS ORDERED: MIDAZOLAM 2 MG/2 ML VIAL ONE (16:36)
[2018-06-10] MEDS ORDERED: diphenhydrAMINE 50 MG/ML 1 ML VIAL ONE (16:36)
[2018-06-10] MEDS ORDERED: PROPOFOL 10 MG/ML 20 ML VIAL IV ONE (16:36)
[2018-06-10] MEDS ORDERED: ACETAMINOPHEN TAB 325 MG TAB PO PRN (16:50)
[2018-06-10] MEDS ORDERED: ACETAMINOPHEN IV (For NPO) 1,000 MG in EMPTY BAG 1 BAG IVPB ONE (16:50)
[2018-06-10] MEDS ORDERED: IOPAMIDOL-250 50ML BTL IV ONE ×3 (17:02→17:59)
[2018-06-10] MEDS ORDERED: SODIUM CHLORIDE 0.9% 500 ML IV ONE (17:03)
[2018-06-10] MEDS ORDERED: LIDOCAINE 1% INJ 10MG/ML (20 ML MDV) ONE (17:12)
[2018-06-10] MEDS ORDERED: LIDOCAINE 1% INJ 10MG/ML (20 ML MDV) SQ ONE (17:28)
--- NOTE | 2018-06-10 20:09 | CE ---
CARDIAC ELECTROPHYSIOLOGY REPORT Mr. Seaman is an 82-year-old male patient with history of syncope and a history of 2:1 heart block with bradycardia, persistently between 35 and 40 beats per minute. A dual- chamber biventricular pacemaker was recommended for management of bradycardia and anticipated greater than 50% RV pacing with a standard dual-chamber pacemaker implant. The patient was brought to the EP lab in a fasting state. Written informed consent was obtained prior to the procedure. The left shoulder area was prepped and draped as per protocol. Lidocaine 1% was used for local anesthesia. A 4 cm incision was made parallel to the deltopectoral groove, about 1.5 cm medial to it. The incision was carried down to the level of the pectoralis muscle. A subfascial pocket was made. Hemostasis was assured. The left axillary vein was accessed at 3 separate points under fluoroscopy and via appropriately sized introducer sheaths, 3 leads were positioned. First the RV lead was positioned in the RV apex, but the screw was not deployed. This was for backup temporary pacing only, but this was not needed through the procedure. Later this was positioned in the RV septum. [id number] protocol was employed. This was positioned in the high RV septum. R-waves 12 mV. Pacing impedance 680 ohms. Pacing threshold 0.5 V at 0.5 milliseconds. Ten-volt test was negative. The right ventricular lead was a [employer], model #2088TC, 58 cm in length, and serial #[id number]. The right atrial lead was a [employer], 52 cm length and model #1944 and serial #[id number]. P-waves initially were 2.1 mV. Pacing impedance 460 ohms. Pacing threshold 0.5 V at 0.5 milliseconds. The LV lead was initially positioned in the posterolateral vein; however, diaphragmatic stimulation and noncapture at high outputs was noted. Therefore this was positioned in the anterolateral vein. Even in this vein, in the basal portion the thresholds were very high, and distally there was diaphragmatic stimulation noted with high-output pacing. However, finally we were able to program it from M-to-can with good thresholds of 1.7 V at 0.5 milliseconds, pacing impedance 490 [address]ms. This was a [employer] model #1458Q, 75 cm in length, and serial #[id number]. The lead and the generator were then placed in the subfascial pocket and the wound was closed in 3 layers and dressed per protocol. The generator used was a [employer] model #VV8664, serial #[id number]. The device was then programmed to DDD mode with a short AV delay of 120 milliseconds with the LV offset of 15 milliseconds, LV lead second pole (M to can configuration). The patient tolerated the procedure well without any acute complications. PLAN: IV antibiotics. Chest x-ray and device interrogation tomorrow. MMODL / IJN: [id number] /
[2018-06-10 21:04] VITALS: RESP 16
[2018-06-10] MEDS: ceFAZolin IN SWFI 2 GM/20 ML SYRINGE IVP SCH (21:08)
[2018-06-10] MEDS: HYDROcodone/APAP 5-325MG 1 EACH TAB PO PRN (21:27)
[2018-06-11] MEDS: ceFAZolin IN SWFI 2 GM/20 ML SYRINGE IVP SCH ×3 (00:55→12:37)
[2018-06-11] MEDS: HYDROcodone/APAP 5-325MG 1 EACH TAB PO PRN ×2 (05:18→11:52)
[2018-06-11] MEDS: PANTOPRAZOLE 40 MG TABLET PO SCH (05:19)
[2018-06-11 06:13] LABS: Basophils % (A) 1 %; Eosinophils # (A) 0.5 k/uL (0-0.7); Eosinophils % (A) 7 %; HCT 43.6 % (39.0-53.0); HGB 14.2 gm/dL (13.0-17.5); Lymphocytes % (A) 16 %; MCH 29.4 pg (25.0-35.0); MCHC 32.5 g/dL (31.0-37.0); MCV 90.6 fL (80.0-100.0); Monocytes # (A) 0.5 k/uL (0-1.0); Monocytes % (A) 8 %; Neutrophils # (A) 4.3 k/uL (1.3-7.7); Neutrophils % (A) 66 %; Platelet Count 143 k/uL (150-450); RBC 4.81 m/uL (4.30-5.90); RDW 14.4 % (11.5-15.5); WBC 6.4 k/uL (3.8-10.6)
[2018-06-11 06:28] LABS: ALT 30 U/L (21-72); AST 28 U/L (17-59); Albumin 3.7 g/dL (3.5-5.0); Alkaline Phosphatase 70 U/L (38-126); Anion Gap 9 mmol/L; Blood Urea Nitrogen 13 mg/dL (9-20); Calcium 8.9 mg/dL (8.4-10.2); Carbon Dioxide 25 mmol/L (22-30); Chloride 96 mmol/L (98-107); Glucose 81 mg/dL (74-99); Potassium 4.1 mmol/L (3.5-5.1); Sodium 130 mmol/L (137-145); Total Bilirubin 0.7 mg/dL (0.2-1.3); Total Protein 6.3 g/dL (6.3-8.2)
[2018-06-11] MEDS: NIFEdipine XL 30 MG TAB.ER.24 PO SCH (07:50)
[2018-06-11] MEDS: SYMBICORT 160-4.5 MCG INHALER INHALATION SCH (08:16)
[2018-06-11] MEDS: IPRATROPIUM-ALBUTEROL 3 ML NEB INHALATION SCH ×2 (08:16→13:48)
[2018-06-11 08:20] VITALS: TEMP 98.2
--- NOTE | 2018-06-11 08:42 | XR ---
EXAMINATION TYPE: XR chest 2V DATE OF EXAM: 06/11/2018 COMPARISON: 06/05/2018 HISTORY: 82-year-old male lead placement check TECHNIQUE: Frontal and lateral views FINDINGS: Left anterior chest wall pacemaker generator with right atrial, right ventricular, and coronary sinus leads. Heart normal size. Aorta and pulmonary vasculature within normal limits. Some chronic-appeari ng opacities are present in the right mid to lower lung probably relating to rib end calcifications. No consolidation or pleural effusion. Endplate spondylosis throughout the thoracic spine with accentu ated midthoracic kyphosis. IMPRESSION: New left-sided 3-lead pacemaker generator. No acute cardiopulmonary process.
--- NOTE | 2018-06-11 12:55 | P.DS ---
Providers Date of admission: 06/05/18 15:03 Expected date of discharge: 06/11/18 Attending physician: Asuncion García Consults: 06/05/18 15:03 Consult Physician Urgent Consulting Provider: [facility] Reason/Comments: Bradycardia, dyspnea with exertion Do you want consulting provider notified?: Yes Primary care physician: Physician Nonstaff Hospital Course: Discharge diagnosis 1. Symptomatic bradycardic related to second degree type II heart block. Cardiology services have been consulted. EKG showing marked sinus bradycardia with rate 45. Patient be scheduled for pacemaker placement tomorrow with Dr. Rodrigues. Thyroid level normal. Echo shows a normal EF 55-60%. Patient is status post pacemaker placement. Currently in sinus rhythm with heart rate in this 70s 2. History of COPD. Chest x-ray in completed emergency room showing no acute cardiopulmonary process. No signs of exacerbation at this time. Continue DuoNeb nebulizers. 3. Essential hypertension 4. History of prostate cancer 5. Hyponatremia sodium level improving with IV fluids. Sodium at discharge 130 Hospital course This is an 82-year-old male patient who follows with the [facility]. Patient was sent to the emergency room from the [facility] today and they told him he was severely bradycardic any discomfort to the emergency department immediately. Patient does state that over the past year he has noticed he becomes very short of breath whenever he exerts himself. Patient also that he has been becoming increasingly more fatigued. Patient has known past medical history of prostate cancer, COPD, GERD, hypertension and osteoarthritis. Chest x-ray completed emergency room showing no acute cardiopulmonary process. Stable exam. EKG completed in emergency room showing marked sinus bradycardia with rhythm 45. Troponin levels have been negative. Cardiology services have been consulted. Per cardiology patient is in complete heart block. TSH level has been ordered. 2-D echo have also ordered per cardiology. Plan for permanent pacemaker implantation in the next 24 hours per cardiology. Patient denies chest pain or shortness of breath at rest. Patient denies nausea vomiting or diarrhea. Patient denies urinary burning or frequency. 06/07/2018 patient lying in bed comfortably. Heart rate ranges from the 30s to 40s. He is scheduled for pacemaker placement tomorrow. TSH normal at 4.060. Echo shows an EF of 55-60% and moderate pulmonary hypertension. Patient reports having regular bowel movements. Denies any decreased with urinating. Denies any chest pain or shortness breath On 06/08/2018 patient is alert and oriented 3 in no apparent distress has significant bradycardia otherwise no complaints there is no dizziness no chest pain no shortness of breath no cough no nausea or vomiting no abdominal pain no diarrhea and no urinary symptoms. On 06/09/2018 patient was seen and examined on the telemetry floor, he is alert and oriented 3 he has bradycardia otherwise no complaints there is no dizziness no chest pain no shortness of breath no cough no nausea or vomiting no abdominal pain no diarrhea, no burning with urination no frequency or urgency and no hematuria. 06/10/2018 patient is scheduled for pacemaker placement today. He has no new complaints. Patient is status post pacemaker placement. He has been cleared by cardiology for discharge home. He'll follow-up with him in the office in a week. Patient is medically stable for discharge on 06/11/2018. Sodium level at discharge is 130. Recommend checking sodium level in 1 week. Patient will follow up with his PCP at that time. I performed an examination of the patient and discussed their management with the physician Air Brush Operator. I have reviewed the Physician Air Brush Operator's notes and agree with the documented findings and plan of care Patient Condition at Discharge: Stable Plan - Discharge Summary Discharge Rx Participant: Yes New Discharge Prescriptions: Continue Budesonide-Formot 160-4.5 Mcg [Symbicort 160-4.5 Mcg Inhaler] 2 puff INHALATION RT-BID Tiotropium Waka [Spiriva] 18 mcg IH RT-DAILY Albuterol Inhaler [Ventolin Hfa Inhaler] 2 puff INHALATION RT-Q4H PRN PRN Reason: Shortness Of Breath Albuterol Nebulized (Conc) [Ventolin Nebulized (Conc)] 2.5 mg INHALATION RT- QID PRN PRN Reason: sob Lysine 500 mg PO DAILY Aspirin 325 mg PO DAILY NIFEdipine [NIFEdipine ER] 30 mg PO DAILY rOPINIRole HCL [Requip] 0.5 mg PO HS Naproxen Sodium [Aleve] 220 mg PO Q12HR PRN PRN Reason: Pain Discharge Medication List Albuterol Inhaler [Ventolin Hfa Inhaler] 2 puff INHALATION RT-Q4H PRN 04/04/14 [ History] Budesonide-Formot 160-4.5 Mcg [Symbicort 160-4.5 Mcg Inhaler] 2 puff INHALATION RT-BID 04/04/14 [History] Tiotropium Waka [Spiriva] 18 mcg IH RT-DAILY 04/04/14 [History] Albuterol Nebulized (Conc) [Ventolin Nebulized (Conc)] 2.5 mg INHALATION RT-QID PRN 04/10/17 [History] Lysine 500 mg PO DAILY 11/20/17 [History] Aspirin 325 mg PO DAILY 06/05/18 [History] NIFEdipine [NIFEdipine ER] 30 mg PO DAILY 06/05/18 [History] Naproxen Sodium [Aleve] 220 mg PO Q12HR PRN 06/05/18 [History] rOPINIRole HCL [Requip] 0.5 mg PO HS 06/05/18 [History] Follow up Appointment(s)/Referral(s): [facility],Clinic [REFERRING] - 1 Week Champ Rodrigues MD [STAFF PHYSICIAN] - 1 Week Ambulatory/Diagnostic Orders: Basic Metabolic Panel [LAB.AMB] Time Frame: 1 Week, Location: None Selected Activity/Diet/Wound Care/Special Instructions: Diet: cardiac Activity: as tolerated Discharge Disposition: HOME SELF-CARE
[2018-06-11 13:13] VITALS: BP 150/73; PULSE 82
--- NOTE | 2018-06-11 14:58 | P.PN ---
Subjective Progress Note Date: 06/11/18 This is a pleasant 82-year-old gentleman with a past medical history significant for COPD and hypertension presented to the hospital complaining of shortness of breath. The patient was referred to have a stress test at the [facility] yesterday when this test was canceled because the EKG was abnormal and the patient was referred to go to the emergency room. When he arrived to the emergency room, he was bradycardic. The heart rate has been in the 40s. The EKG showed sinus rhythm with complete heart block. Patient underwent implantation of a permanent pacemaker yesterday by Dr. Rodrigues. Device was interrogated this morning and is functioning appropriately. Chest x-ray does not reveal any evidence of pneumo thorax. Hemodynamically stable. Objective - Vital Signs Vital signs: Vital Signs Temp 98.2 F 06/11/18 08:00 Pulse 82 06/11/18 12:00 Resp 16 06/11/18 12:00 BP 150/73 06/11/18 12:00 Pulse Ox 94 L 06/11/18 12:00 Intake & Output 06/10/18 06/11/18 06/11/18 18:59 06:59 18:59 Intake Total 340 400 Output Total 0 Balance 340 400 Weight 59.8 kg Intake: IV 340 Invasive Line 1 20 Invasive Line 2 10 Invasive Line 3 10 Oral 0 400 Output: Urine 0 Other: # Voids 2 # Bowel Movements 0 - Exam Head normocephalic Neck supple Lungs clear to auscultation bilaterally no wheezing or crackles, site of pacemaker insertion, dressing is dry and intact. Heart bradycardic Abdomen is soft nontender nondistended positive bowel sounds no hepatosplenomegaly Extremities no edema Neuro alert and orientated to 3 - Labs CBC & Chem 7: 06/11/18 05:34 06/11/18 05:34 Labs: Abnormal Lab Results - Last 24 Hours (Table) 06/11/18 06/11/18 Range/Units 05:34 05:34 Plt Count 143 L (150-450) k/uL Sodium 130 L (137-145) mmol/L Chloride 96 L (98-107) mmol/L Assessment and Plan Plan: Assessment and plan 1. Symptomatic bradycardic related to second degree type II heart block. Status post implantation of a permanent pacemaker 2. History of COPD. Chest x-ray in completed emergency room showing no acute cardiopulmonary process. No signs of exacerbation at this time. Continue DuoNeb nebulizers. 3. Essential hypertension 4. History of prostate cancer 5. Hyponatremia sodium level improving with IV fluids. Plan From cardiology's perspective, patient may be able to be discharged home once cleared by primary. Orders for follow-up with the device clinic and in the office have been given. DNP note has been reviewed, I agree with a documented findings and plan of care. Patient was seen and examined.
== END 2018-06-11 15:11 | disposition home or self-care (01) | DRG 243 ==
LOC: EC 13:48 → 6SEL 15:03
PROVIDERS: ADMIT Internal Medicine; ATTEND Internal Medicine
PROC: 02HK3JZ Insertion of Pacemaker Lead into Right Ventricle, Percutaneous Approach (ICD-10-PCS; 2018-06-10)
PROC: 02HL3JZ Insertion of Pacemaker Lead into Left Ventricle, Percutaneous Approach (ICD-10-PCS; 2018-06-10)
PROC: 0JH637Z Insertion of Cardiac Resynchronization Pacemaker Pulse Generator into Chest Subcutaneous Tissue and Fascia, Percutaneous Approach (ICD-10-PCS; principal; 2018-06-10 08:30)
PROC: 02H63JZ Insertion of Pacemaker Lead into Right Atrium, Percutaneous Approach (ICD-10-PCS; 2018-06-10 08:30)
DX: I44.1 Atrioventricular block, second degree (principal); E87.1 Hypo-osmolality and hyponatremia; I27.20 Pulmonary hypertension, unspecified; J44.9 Chronic obstructive pulmonary disease, unspecified; R00.1 Bradycardia, unspecified; I10 Essential (primary) hypertension; M19.042 Primary osteoarthritis, left hand; M16.0 Bilateral primary osteoarthritis of hip; M19.041 Primary osteoarthritis, right hand; M20.002 Unspecified deformity of left finger(s); K44.9 Diaphragmatic hernia without obstruction or gangrene; K21.9 Gastro-esophageal reflux disease without esophagitis; Z79.82 Long term (current) use of aspirin; Z79.51 Long term (current) use of inhaled steroids; Z79.899 Other long term (current) drug therapy; Z87.891 Personal history of nicotine dependence; Z86.010 Personal history of colon polyps; Z90.49 Acquired absence of other specified parts of digestive tract; Z85.46 Personal history of malignant neoplasm of prostate; Z98.42 Cataract extraction status, left eye; Z98.41 Cataract extraction status, right eye; Z91.040 Latex allergy status; Z91.048 Other nonmedicinal substance allergy status; Z80.1 Family history of malignant neoplasm of trachea, bronchus and lung; Z82.49 Family history of ischemic heart disease and other diseases of the circulatory system; Z81.2 Family history of tobacco abuse and dependence
CPT/HCPCS: 33208; 33225; 36415; 71046; 80048; 80053; 80061; 82550; 82553; 83735; 83880; 84439; 84443; 84484; 85025; 85027; 85610; 85730; 93005; 93306; 94640; 94760; 99285

== ENCOUNTER → 2019-10-13 | Outpatient (CLI) | payer MEDICARE, OTHER ==
[2019-10-13 09:44] LABS: Basophils % (A) 0 %; Eosinophils # (A) 0.2 k/uL (0-0.7); Eosinophils % (A) 2 %; HCT 36.2 % (39.0-53.0); HGB 11.5 gm/dL (13.0-17.5); Lymphocytes # (A) 1.2 k/uL (1.0-4.8); Lymphocytes % (A) 16 %; MCH 29.7 pg (25.0-35.0); MCHC 31.8 g/dL (31.0-37.0); MCV 93.6 fL (80.0-100.0); Monocytes # (A) 0.5 k/uL (0-1.0); Monocytes % (A) 7 %; Neutrophils # (A) 5.8 k/uL (1.3-7.7); Neutrophils % (A) 73 %; Platelet Count 224 k/uL (150-450); RBC 3.87 m/uL (4.30-5.90); RDW 13.9 % (11.5-15.5); WBC 7.9 k/uL (3.8-10.6)
== END | disposition home or self-care (01) ==
LOC: LABPAT 09:01
PROVIDERS: ATTEND Surgery
DX: Z01.812 Encounter for preprocedural laboratory examination (principal); K43.2 Incisional hernia without obstruction or gangrene
CPT/HCPCS: 36415; 85025

== ENCOUNTER 2019-10-22 07:46 | Day surgery (SDC) | payer MEDICARE, OTHER ==
[2019-10-16 12:06] VITALS: BMI 27.3
[~2019-10-22 07:46] MED LIST changes: +DEXAMETHASONE SOD PHOSPHATE 10 MG/ML 1 ML VIAL IV ONE; +LIDOCAINE 1% 20 ML VIAL (10MG/ML) FOR IV START INTRADERMA PRN; +MIDAZOLAM 2 MG/2 ML VIAL IV PRN; +ONDANSETRON 4 MG/2 ML VIAL IVP ONE; -ceFAZolin IN SWFI 2 GM/20 ML SYRINGE IVP ONE
[2019-10-22] MEDS: LACTATED RINGERS 1,000 ML IV SCH (08:46)
[2019-10-22] MEDS ORDERED: MIDAZOLAM 2 MG/2 ML VIAL IV ONE (08:50)
[2019-10-22] MEDS ORDERED: fentaNYL (PF) 50 MCG/ML 2 ML AMP IV ONE (08:50)
[2019-10-22] MEDS ORDERED: SUCCINYLCHOLINE CHLORIDE 100 MG/5 ML SYR IV ONE (09:28)
[2019-10-22] MEDS ORDERED: NEOSTIGMINE 1 MG/ML 10 ML VIAL ONE (09:28)
[2019-10-22] MEDS ORDERED: GLYCOPYRROLATE 0.2 MG/ML 2 ML VIAL ONE (09:28)
[2019-10-22] MEDS ORDERED: PROPOFOL 10 MG/ML 20 ML VIAL IV ONE (09:28)
[2019-10-22] MEDS ORDERED: ROCURONIUM BROMIDE 10 MG/ML 10 ML VIAL IV ONE (09:28)
[2019-10-22] MEDS ORDERED: fentaNYL (PF) 50 MCG/ML 2 ML AMP ONE (09:28)
[2019-10-22] MEDS ORDERED: LIDOCAINE 1% INJ 10MG/ML (20 ML MDV) ONE (09:28)
[2019-10-22] MEDS ORDERED: SODIUM CHLORIDE 0.9% 100 ML with ceFAZolin 2,000 MG IV ONE ×2 (09:30)
--- NOTE | 2019-10-22 10:03 | P.ANPRN ---
Procedure Note - Anesthesia - Nerve Block Performed Bilateral Rectus Abdominis Single Time Out Performed: Yes Date of Procedure: 10/22/19 Procedure Start Time: 08:50 Procedure Stop Time: 09:00 Location of Patient: PreOp Indication: Acute Post-Operative Pain, Requested by Surgeon Specifically requested for management of pain by DrJim: Manfred Padilla Sedation Type: Sedate with meaningful contact maintained Preparation: Sterile Prep Position: Supine Catheter: None Needle Types: Pajunk Needle Gauge: 20 Ultrasound used to visualize needle placement: Yes Ultrasound used to observe medication spread: Yes Injectate: Other (see comment) (Ropivacaine 0.25%/lidocaine 1% 20 mL per side) Adjunct: Epinephrine (see comment for dilution ratio) (1:200,000) Blood Aspirated: No Pain Paresthesia on Injection Noted: No Resistance on Injection: Normal Image Stored and Saved: Yes Events: Uneventful and Well Tolerated
[2019-10-22] MEDS ORDERED: BUPIVACAINE (PF) 0.25% 30 ML VIAL SQ ONE ×2 (10:05→10:56)
[2019-10-22] MEDS ORDERED: LACTATED RINGERS 1,000 ML IV ONE (10:56)
[2019-10-22] MEDS ORDERED: NALOXONE 0.4 MG/ML 1 ML VIAL IV PRN (11:08)
--- NOTE | 2019-10-22 11:12 | P.OP ---
Date of Procedure: 10/22/19 Procedure(s) Performed: PREOPERATIVE DIAGNOSIS: Reducible incisional hernia POSTOPERATIVE DIAGNOSIS: Same PROCEDURE: Reducible incisional hernia with mesh SURGEON: Valerie EBL: Minimal ANESTHESIA: Gen. COMPLICATIONS: None OPERATIVE PROCEDURE: Patient placed on the operating table in the supine position. Abdomen was prepped and draped in usual sterile fashion. The previous incision was re-incised superiorly. Dissection through the subcutaneous tissues took place using electrocautery. A fascial defect was identified measuring 4 x 2.5 cm, an additional fascial defect measuring 1 x 1 cm was immediately inferior to that. These were both included into one fascial opening. The hernia sac was excised. The fatty tissue over the fascia was dissected circumferentially. The umbilicus was dissected away from the fascia and there was a small 3-4 mm defect there as well. After full dissection I chose to use an 8 cm ventral ex mesh. This was placed beneath the fascia and sutured to the fascia using trans-fascial 0 Ethibond sutures. This was performed circumferentially. The fascia was then reapproximated vertically using an overlapping mattress suture 0 Ethibond in interrupted fashion. The folding edge was tacked down using interrupted 0 Ethibond sutures as well. A drain was then placed above the level of fascia exiting laterally to the right. This was sutured in place using an Ethibond stitch. The subcutaneous tissues were closed using 3-0 Vicryl sutures. The skin was closed using a running 4-0 Monocryl subcuticular suture. Skin glue was then applied. Sterile dressings were applied. DISPOSITION: Stable to recovery room
[2019-10-22] MEDS: HYDROmorphone 0.5 MG/0.5 ML SYRINGE IVP PRN ×4 (11:23→11:55)
[2019-10-22] MEDS ORDERED: HYDROmorphone 0.5 MG/0.5 ML SYRINGE IVP ONE (15:20)
[2019-10-22] MEDS: traMADol 50 MG TAB PO PRN (18:48)
[2019-10-22] MEDS ORDERED: ALBUTEROL NEB (CONC) 2.5 MG/0.5 ML INHALATION PRN (20:18)
[2019-10-22] MEDS ORDERED: NAPROXEN 250 MG TAB PO PRN (20:18)
[2019-10-22] MEDS ORDERED: ALBUTEROL NEBULIZED 2.5 MG/3 ML INHALATION PRN (20:18)
[2019-10-22] MEDS ORDERED: NIFEdipine XL 30 MG TAB.ER.24 PO SCH (21:00)
[2019-10-22] MEDS: IPRATROPIUM 0.5 MG/2.5 ML NEBU INHALATION SCH ×3 (21:09→21:17)
[2019-10-22] MEDS: SYMBICORT 80-4.5 MCG INHALER INHALATION SCH ×2 (21:11→21:16)
[2019-10-23] MEDS: traMADol 50 MG TAB PO PRN ×2 (00:47→06:23)
[2019-10-23] MEDS: LACTATED RINGERS 1,000 ML IV SCH (03:09)
[2019-10-23] MEDS: IPRATROPIUM 0.5 MG/2.5 ML NEBU INHALATION SCH ×3 (07:39→15:34)
[2019-10-23] MEDS: SYMBICORT 80-4.5 MCG INHALER INHALATION SCH (07:39)
[2019-10-23 08:27] VITALS: BP 122/66; PULSE 73; RESP 12; TEMP 98.2
[2019-10-23] MEDS ORDERED: LYSINE 500 MG PO SCH (09:00)
--- NOTE | 2019-10-23 09:17 | P.CONS ---
History of Present Illness - Reason for Consult Consult date: 10/23/19 medical managment Requesting physician: Manfred Padilla - Chief Complaint hernia repair - History of Present Illness This is an 83-year-old male patient of Dr. Pryor. Patient presented to the hospital for an elective incisional hernia repair with Dr. lindsey. Patient reports he's had problems with hernia for over a year since he had surgery for his prostate cancer with Dr. Barrett. Patient is currently postop day 1 of reducible incisional hernia with mesh. Abdominal binder in place LORE drain with minimum drainage. Patient does have past medical history of prostate cancer, COPD, GERD, hypertension, cerebritis and pacemaker placement for heart block. Patient reports that pain has significantly improved from yesterday. Patient has been up ambulating. Patient has been tolerating diet. Pain is currently controlling pain. At this time patient denies chest pain or shortness of breath. Denies nausea vomiting or diarrhea. Patient denies any urinary burning or frequency. Review of Systems Please refer to HPI otherwise unremarkable Past Medical History Past Medical History: Cancer, COPD, GERD/Reflux, Hypertension, Osteoarthritis (OA), Prostate Disorder Additional Past Medical History / Comment(s): prostate cancer,Bronchitis, hiatal hernia, hernia after prostate sx. pt stated he gets up 3-4 times a night to urinate and has had dizzy spells at times, pacemaker for "heart block" History of Any Multi-Drug Resistant Organisms: MRSA Year Discovered:: 03/27/13 MDRO Source:: sputum Past Surgical History: Cholecystectomy, Hernia Repair, Orthopedic Surgery, Pacemaker, Prostate Surgery Additional Past Surgical History / Comment(s): srinivas CATARACT surgery, R inguinal HERNIA REPAIR,, amputation L little finger, prosatectomy w/ srinivas pelvic lym phadenectomy Past Anesthesia/Blood Transfusion Reactions: Motion Sickness Type of Cardiac Device: Permanent Pacemaker Device Placement Date:: 12/04/17 Past Psychological History: No Psychological Hx Reported Additional Psychological History / Comment(s): . Smoking Status: Former smoker Past Alcohol Use History: Daily Additional Past Alcohol Use History / Comment(s): Pt states he started smoking about 1954 and quit about 1971. 1 pack/week, 1 drink daily Past Drug Use History: None Reported - Past Family History Brother(s) Family Medical History: No Reported History Father Family Medical History: Cancer Additional Family Medical History / Comment(s): . Mother Family Medical History: Coronary Artery Disease (CAD), Hypertension, Myocardial Infarction ([place]) Additional Family Medical History / Comment(s): Mother at the age of 72yrs. Medications and Allergies Home Medications Medication Instructions Recorded Confirmed Type Albuterol Inhaler [Ventolin Hfa 2 puff INHALATION RT-Q4H PRN 04/04/14 10/22/19 History Inhaler] Albuterol Nebulized (Conc) 2.5 mg INHALATION DIRECTED PRN 04/10/17 10/22/19 History [Ventolin Nebulized (Conc)] Lysine 500 mg PO DAILY 11/20/17 10/22/19 History NIFEdipine [NIFEdipine ER 30 mg PO HS 06/05/18 10/22/19 History (Osmotic)] Naproxen Sodium [Aleve] 220 mg PO Q12HR PRN 06/05/18 10/22/19 History Fluticasone/Umeclidin/Vilanter 1 inhalation INHALATION QAM 10/16/19 10/22/19 History [Trelegy Ellipta 100-62.5-25] rOPINIRole HCL [Requip] 1 mg PO HS 10/16/19 10/22/19 History rOPINIRole HCL [Requip] 3 mg PO HS 10/16/19 10/22/19 History Allergies Allergy/AdvReac Type Severity Reaction Status Date / Time laundry soap Allergy Itching Uncoded 10/22/19 08:26 UNKNOWN MUSCLE RELAXANT Allergy Rash/Hives Uncoded 10/22/19 08:28 Physical Exam Vitals: Vital Signs Temp Pulse Pulse Resp BP BP Pulse Ox 10/23/19 07:00 98.2 F 73 12 122/66 96 10/23/19 00:14 97.9 F 71 14 138/84 100 10/22/19 21:24 80 10/22/19 21:09 78 14 10/22/19 19:53 98.7 F 83 18 145/75 97 10/22/19 16:20 98.8 F 103 H 16 169/77 95 10/22/19 15:38 90 16 153/79 98 10/22/19 15:00 88 16 149/75 98 10/22/19 14:00 82 16 151/77 98 10/22/19 13:30 88 16 155/78 98 10/22/19 13:00 85 16 150/74 98 10/22/19 12:45 88 16 147/75 98 10/22/19 12:30 90 16 160/74 96 10/22/19 12:15 95 16 137/69 96 10/22/19 12:00 95 16 158/74 100 10/22/19 11:45 88 16 158/73 100 10/22/19 11:30 88 16 151/72 100 10/22/19 11:15 86 16 158/77 100 10/22/19 11:08 98.1 F 95 16 160/77 100 Intake and Output 10/22/19 10/23/19 10/23/19 22:59 06:59 14:59 Intake Total 496 Output Total 200 325 20 Balance 296 -325 -20 Intake: Oral 496 Output: Drainage 20 Abdomen 20 Urine 200 325 Other: Voiding Method Urinal Urinal # Voids 1 1 Weight 65 kg Head normocephalic Neck supple Lungs clear to auscultation bilaterally no wheezing or crackles Heart regular rate and rhythm S1-S2, no rub or gallop Abdomen is soft nontender nondistended positive bowel sounds no hepatosplenomegaly. Dressing is clean dry and intact. Abdominal binder in place LORE drain noted with serosanguineous drainage Extremities no edema Neuro alert and orientated to 3 Assessment and Plan Assessment: 1. Status post response incisional hernia with mesh with Dr. lindsey. Patient is currently postop day 1. Pain medication per surgical services 2. History of prostate cancer 3. History of COPD no exacerbation at this time 4. History of essential hypertension. Home meds resumed 5. History of second-degree heart block with pacemaker placement in May 2018 DVT prophylaxis heparin. Thank you for this consultation we will continue to follow patient closely throughout stay Time with Patient: Greater than 30 (Greater than 60% of the total time spent in counseling and coordination of care. I performed an examination of the patient and discussed their management with the Nurse Practitioner. I have reviewed the Nurse Practitioner's notes and agree with the documented findings and plan of care)
[2019-10-23 10:10] LABS: Basophils % (A) 1 %; Eosinophils # (A) 0.1 k/uL (0-0.7); Eosinophils % (A) 1 %; Hypochromasia Slight; Lymphocytes # (A) 1.3 k/uL (1.0-4.8); Lymphocytes % (A) 17 %; MCH 28.8 pg (25.0-35.0); MCHC 30.6 g/dL (31.0-37.0); MCV 93.9 fL (80.0-100.0); Mean Platelet Volume 7.4; Monocytes # (A) 0.7 k/uL (0-1.0); Monocytes % (A) 9 %; Neutrophils # (A) 5.4 k/uL (1.3-7.7); Neutrophils % (A) 70 %; Platelet Count 208 k/uL (150-450); RBC 3.84 m/uL (4.30-5.90); RDW 13.6 % (11.5-15.5); WBC 7.7 k/uL (3.8-10.6)
[2019-10-23 10:26] LABS: ALT 17 U/L (4-49); AST 38 U/L (17-59); African American GFR (CKD) >90 (>60 ml/min/1.73 sqM); Albumin 4.1 g/dL (3.5-5.0); Alkaline Phosphatase 85 U/L (38-126); Anion Gap 8 mmol/L; Blood Urea Nitrogen 15 mg/dL (9-20); Calcium 9.3 mg/dL (8.4-10.2); Carbon Dioxide 28 mmol/L (22-30); Chloride 93 mmol/L (98-107); Glucose 94 mg/dL (74-99); Non-African American GFR(CKD) 86 (>60 ml/min/1.73 sqM); Potassium 5.3 mmol/L (3.5-5.1); Sodium 129 mmol/L (137-145); Total Bilirubin 0.9 mg/dL (0.2-1.3); Total Protein 6.9 g/dL (6.3-8.2)
[2019-10-23] MEDS ORDERED: SODIUM POLYSTYRENE SULFONATE 15 GM/60 ML BOTTLE PO STA (10:59)
[2019-10-23] MEDS ORDERED: SODIUM CHLORIDE 0.9% 1,000 ML IV SCH (11:30)
--- NOTE | 2019-10-23 12:46 | P.DS ---
<Cristiane Bar - Last Filed: 10/23/19 12:44> Providers Expected date of discharge: 10/23/19 Hospital Course: 83-year-old male who underwent repair of incisional hernia with mesh by Dr. Padilla. Patient is doing well postoperatively without any immediate complications. Pain is controlled on oral medications. He is tolerating diet without nausea or vomiting. Vital signs are stable. LORE drain with serosanguineous drainage which will continue the time of discharge. Patient is stable for discharge home today. Please see EMR for further hospital course details. Discharge diagnosis 1. Repair of incisional hernia with mesh Nurse practitioner note has been reviewed by physician. Signing provider agrees with the documented findings, assessment, and plan of care. Plan - Discharge Summary Discharge Rx Participant: No New Discharge Prescriptions: New Hydrocodone/Acetaminophen [[place] 5-325] 1 tab PO Q6HR PRN 3 Days #12 tab PRN Reason: Pain Continue Albuterol Inhaler [Ventolin Hfa Inhaler] 2 puff INHALATION RT-Q4H PRN PRN Reason: Shortness Of Breath Albuterol Nebulized (Conc) [Ventolin Nebulized (Conc)] 2.5 mg INHALATION DIRECTED PRN PRN Reason: sob NIFEdipine [NIFEdipine ER (Osmotic)] 30 mg PO HS rOPINIRole HCL [Requip] 1 mg PO HS rOPINIRole HCL [Requip] 3 mg PO HS Fluticasone/Umeclidin/Vilanter [Trelegy Ellipta 100-62.5-25] 1 inhalation INHALATION QAM Discontinued Lysine 500 mg PO DAILY Naproxen Sodium [Aleve] 220 mg PO Q12HR PRN PRN Reason: Pain Discharge Medication List Albuterol Inhaler [Ventolin Hfa Inhaler] 2 puff INHALATION RT-Q4H PRN 04/04/14 [History] Albuterol Nebulized (Conc) [Ventolin Nebulized (Conc)] 2.5 mg INHALATION DIRECTED PRN 04/10/17 [History] NIFEdipine [NIFEdipine ER (Osmotic)] 30 mg PO HS 06/05/18 [History] Fluticasone/Umeclidin/Vilanter [Trelegy Ellipta 100-62.5-25] 1 inhalation INHALATION QAM 10/16/19 [History] rOPINIRole HCL [Requip] 1 mg PO HS 10/16/19 [History] rOPINIRole HCL [Requip] 3 mg PO HS 10/16/19 [History] Hydrocodone/Acetaminophen [[place] 5-325] 1 tab PO Q6HR PRN 3 Days #12 tab 10/23/19 [Rx] Follow up Appointment(s)/Referral(s): Manfred Padilla MD [Medical Doctor] - 10/29/19 2:00 pm Ambulatory/Diagnostic Orders: Comprehensive Metabolic Panel [LAB.AMB] Time Frame: 3 Days, Location: None Selected Patient Instructions/Handouts: Incisional Hernia (DC) Activity/Diet/Wound Care/Special Instructions: No driving while taking [place] No lifting over 10 pounds You may shower. No soaking or tub baths Very light activity until you are reevaluated at your follow up appointment with your surgeon Keep a log of LORE drain output and bring with you to your follow-up appointment Discharge Disposition: HOME SELF-CARE <Manfred Padilla - Last Filed: 10/23/19 16:31> Providers Attending physician: Manfred Padilla Consults: 10/22/19 18:22 Consult Physician Routine Consulting Provider: Asuncion García Consult Reason/Comments: Medical management Do you want consulting provider notified?: Yes Primary care physician: Christie Pryor
== END 2019-10-23 15:47 | disposition home or self-care (01) ==
LOC: OR 07:46 → 4SSUR 15:28 → OR 10-23 15:47
PROVIDERS: ATTEND Surgery
DX: K43.2 Incisional hernia without obstruction or gangrene (principal); I10 Essential (primary) hypertension; J44.9 Chronic obstructive pulmonary disease, unspecified; I44.1 Atrioventricular block, second degree; Z85.46 Personal history of malignant neoplasm of prostate; Z90.49 Acquired absence of other specified parts of digestive tract; M19.90 Unspecified osteoarthritis, unspecified site; K21.9 Gastro-esophageal reflux disease without esophagitis; Z98.42 Cataract extraction status, left eye; Z98.41 Cataract extraction status, right eye; Z82.49 Family history of ischemic heart disease and other diseases of the circulatory system; Z80.1 Family history of malignant neoplasm of trachea, bronchus and lung; Z81.1 Family history of alcohol abuse and dependence; Z87.01 Personal history of pneumonia (recurrent); Z95.0 Presence of cardiac pacemaker; Z87.891 Personal history of nicotine dependence; Z79.51 Long term (current) use of inhaled steroids; Z79.899 Other long term (current) drug therapy; Z79.1 Long term (current) use of non-steroidal anti-inflammatories (NSAID); Z79.891 Long term (current) use of opiate analgesic; Z91.040 Latex allergy status; Z91.09 Other allergy status, other than to drugs and biological substances
CPT/HCPCS: 49560; 49568; 94640; 80053; 85025; 88302; C1781; J2250; J1644; J1100; J2710; J2405; J0690; J2001; J3010; J0330; J2704; J1170; 86850; 86900; 86901

== ENCOUNTER → 2022-02-15 | Outpatient (CLI) | payer OTHER ==
--- NOTE | 2022-02-15 21:19 | US ---
EXAMINATION TYPE: US kidneys/renal and bladder DATE OF EXAM: 02/15/2022 COMPARISON: US 2017 CLINICAL HISTORY: Z01.89 ENCOUNTER OTHER SPECIFIED SPECIAL EXAMINATIONS. Left kidney lesion EXAM MEASUREMENTS: Right Kidney: 10.0 x 5.0 x 5.6 cm Left Kidney: 9.8 x 4.9 x 3.9 cm Right Kidney: wnl Left Kidney: 3.7 x 3.2 x 3.3cm complex lesion inferior pole says increasing complexity from the 2017 comparison. Bladder: wnl Bilateral Jets seen: yes IMPRESSION: 1. Complex hypoechoic area inferior pole left kidney. Additional workup with CT is recommended.
== END | disposition home or self-care (01) ==
LOC: RADUSWWP 10:54
PROVIDERS: ATTEND Family Medicine
DX: Z01.89 Encounter for other specified special examinations (principal)
CPT/HCPCS: 76770

== ENCOUNTER → 2022-03-17 | Outpatient (CLI) | payer OTHER ==
[2022-03-17 12:29] LABS: African American GFR (CKD) >90 (>60 ml/min/1.73 sqM); Blood Urea Nitrogen 17 mg/dL (9-20); Non-African American GFR(CKD) 81 (>60 ml/min/1.73 sqM)
== END | disposition home or self-care (01) ==
LOC: LABWHC1 10:02
PROVIDERS: ATTEND Family Medicine
DX: Z01.812 Encounter for preprocedural laboratory examination (principal)
CPT/HCPCS: 36415; 82565; 84520

== ENCOUNTER → 2022-03-20 | Outpatient (CLI) | payer OTHER ==
--- NOTE | 2022-03-21 00:01 | CT ---
EXAMINATION TYPE: CT urogram wo/w con DATE OF EXAM: 03/20/2022 INDICATION: cystic kidney CT DLP: 2169 mGy.cm Automated Exposure Control for Dose Reduction was Utilized. TECHNIQUE AND CONTRAST: CT scan of the abdomen and pelvis is performed without and with IV Contrast, as per CT urogram protoc ol. Patient injected with 70 mL of Isovue 300. 3-D reconstruction images were generated on an [employer] workstation and reviewed. COMPARISON: CT dated 03/29/2017 and ultrasound dated 02/15/2022 FINDINGS: Complex cystic lesion is seen of the lower pole of the left kidney measuring 3.5 cm compared to 2.8 c m in 2017 CT scan. It demonstrates internal enhancing septation and tiny calcification within. 2 mm l eft nonobstructing renal calculus. Unremarkable remainder of the kidneys. No hydroureter or hydroneph rosis. Nonspecific wall thickening of the urinary bladder, please correlate with urinalysis results. Nonvisualized prostate. Scattered hepatic hypodensities likely representing hepatic cysts. Previous cholecystectomy. Unremark able pancreas, spleen and adrenals. Arterial atherosclerotic calcifications. No evidence of bowel obs truction. Scattered uncomplicated colonic diverticulosis. Segments of nonspecific colonic wall thicke giuliano. Recommend correlation with colonoscopy results. Left fat-containing inguinal hernia. Small fat-containing anterior abdominal wall hernia seen in the upper abdomen. No suspicious lymphadenopathy or sizable ascites. COPD changes in the lung bases. Dege nerative changes of the lower thoracic and lumbar spine. IMPRESSION: Progressive complex cystic lesion at the lower pole of the left kidney as detailed above, cystic neop lastic lesion can't be excluded. Recommend urology consultation. Other findings as described above.
== END | disposition home or self-care (01) ==
LOC: RADCTMAIN 13:51
PROVIDERS: ATTEND Family Medicine
DX: N28.1 Cyst of kidney, acquired (principal)
CPT/HCPCS: 74178; 74400; Q9967

== ENCOUNTER → 2022-06-29 | Outpatient (CLI) | payer OTHER ==
--- NOTE | 2022-06-29 14:59 | XR ---
EXAMINATION TYPE: XR chest 2V DATE OF EXAM: 06/29/2022 COMPARISON: Chest x-ray June 11, 2018 HISTORY: Presurgical study. TECHNIQUE: Frontal and lateral views of the chest are obtained. FINDINGS: There is is chronic parenchymal changes bilaterally without suspicious new focal air space opacity, pleural effusion, or pneumothorax seen. The cardiac silhouette size is stable and within n ormal limits. Multi lead pacemaker redemonstrated. The osseous structures are demineralized. High r iding right humeral head suggesting chronic rotator cuff tear redemonstrated. Old fractures of the po sterior lateral right mid ribs again seen IMPRESSION: Chronic changes without acute pulmonary process. No significant change from prior.
[2022-06-29 18:15] LABS: Basophils # (A) 0.03 X 10*3/uL (0.00-0.10); Basophils % (A) 0.7 %; Eosinophils # (A) 0.25 X 10*3/uL (0.04-0.35); Eosinophils % (A) 5.6 %; HCT 37.4 % (39.6-50.0); HGB 12.4 g/dL (13.0-17.0); Immature Grans, Automated 0.4 %; Lymphocytes % (A) 26.8 %; MCH 30.2 pg (27.0-32.0); MCHC 33.2 g/dL (32.0-37.0); MCV 91.2 fL (80.0-97.0); Mean Platelet Volume 10.5 fL (9.5-12.2); Monocytes % (A) 13.4 %; NRBC Per 100 WBC 0 /100 WBCS (0.0-0.0); Neutrophils # (A) 2.38 X 10*3/uL (1.80-7.70); Neutrophils % (A) 53.1 %; Platelet Count 155 X 10*3/uL (140-440); RDW 14.3 % (11.5-14.5); WBC 4.48 X 10*3/uL (4.50-10.00)
[2022-06-29 18:18] LABS: African American GFR (CKD) 94.4 (60.0-200.0); Anion Gap 8.2 mmol/L (10.00-18.00); BUN/Creat Ratio 18.25 Ratio (12.00-20.00); Blood Urea Nitrogen 14.6 mg/dL (9.0-27.0); Calcium 8.9 mg/dL (8.7-10.3); Carbon Dioxide 24.8 mmol/L (20.0-27.5); Non-African American GFR(CKD) 81.5 (60.0-200.0); Potassium 4.5 mmol/L (3.5-5.5)
== END | disposition home or self-care (01) ==
LOC: LABPAT 10:16
PROVIDERS: ATTEND Urology
DX: Z01.818 Encounter for other preprocedural examination (principal); D41.02 Neoplasm of uncertain behavior of left kidney
CPT/HCPCS: 36415; 71046; 80048; 85025

== ENCOUNTER 2022-07-07 09:33 | Day surgery (SDC) | payer OTHER ==
[2022-07-04 14:00] VITALS: BMI 25.0
--- NOTE | 2022-07-07 07:44 | P.HPIHPCON ---
History of Present Illness H&P Date: 07/06/22 Chief Complaint: Left renal mass This is an 86-year-old male with history of a 3.5 cm left-sided cystic renal mass. Had a prolonged discussion with him and his family about the option of observation versus excision. The risk and the benefit of each approach was discussed in detail. At this time he wants to proceed with a excision of the mass. I discussed with him the mass is amenable to a partial nephrectomy. Discussed with him the risk which includes but not limited to bleeding, infection, injury to nearby organs which includes but not limited to the spleen, pancreas, bowel. Discussed also the potential of conversion to a radical nephrectomy. Discussed the potential of needing hemodialysis especially if radical nephrectomy was performed. Discussed with him given his age he's at an increased risk of medical complication which includes but not limited to heart attack, stroke, blood clots and even loss of life. He understood all the risk and agreed to proceed Consent for Procedure: I have explained the operation/procedure to the patient, including the risks, benefits, side effects, alternative therapies (including not receiving the proposed treatment or service), the likelihood of the patient achieving his/her goals, and potential recuperation problems for the procedure/sedation/analgesia, as well as any blood products, if indicated. I also explained to the patient the risks, benefits and side effects of the alternatives, as well as the risks related to not receiving the proposed procedure, care, treatment, or services. Past Medical History Past Medical History: Cancer, COPD, GERD/Reflux, Hyperlipidemia, Hypertension, Osteoarthritis (OA) Additional Past Medical History / Comment(s): mass left kidney,hx prostate ca dx -had sx only,Bronchitis, arthritis bilateral hands and hips, benign colon polypectomy, hiatal hernia, hernia after prostate sx. ,htn resolved History of Any Multi-Drug Resistant Organisms: MRSA Date of last positivie culture/infection: 03/27/13 MDRO Source:: sputum Past Surgical History: Cholecystectomy, Hernia Repair, Orthopedic Surgery, Pacemaker, Prostate Surgery Additional Past Surgical History / Comment(s): CATARACT SX, R inguinal HERNIA REPAIR, colonoscopy with benign polyp, amputation L pinky finger, lap prosatectomy w/ srinivas pelvic lymphadenectomy 11-23-17 Past Anesthesia/Blood Transfusion Reactions: No Reported Reaction Additional Past Anesthesia/Blood Transfusion Reaction / Comment(s): no known hx blood transfusion Type of Cardiac Device: Permanent Pacemaker Device Placement Date:: 2017 [facility] Smoking Status: Former smoker - Past Family History Brother(s) Family Medical History: No Reported History Father Family Medical History: Cancer Additional Family Medical History / Comment(s): lung CA Mother Family Medical History: Coronary Artery Disease (CAD), Hypertension, Myocardial Infarction ([place]) Additional Family Medical History / Comment(s): Mother at the age of 72yrs. Medications and Allergies Home Medications Medication Instructions Recorded Confirmed Type Albuterol Inhaler [Ventolin Hfa 2 puff INHALATION RT-Q4H PRN 04/04/14 07/04/22 History Inhaler] rOPINIRole HCL [Requip] 1 mg PO 1200 10/16/19 07/04/22 History rOPINIRole HCL [Requip] 6 mg PO HS 10/16/19 07/04/22 History Fluticasone/Umeclidin/Vilanter 1 inhalation INHALATION QAM 07/04/22 07/04/22 History [Trelegy Ellipta 100-62.5-25] Pravastatin Sodium [Pravachol] 20 mg PO DAILY 07/04/22 07/04/22 History tiZANidine [Zanaflex] 4 mg PO HS PRN 07/04/22 07/04/22 History Ascorbic Acid [Vitamin C] 1,000 mg PO DAILY 07/06/22 07/06/22 History Cholecalciferol [Vitamin D3 (125 125 mcg PO DAILY 07/06/22 07/06/22 History Mcg = 5000 Iu)] Ferrous Sulfate [Feosol] 325 mg PO DAILY 07/06/22 07/06/22 History Allergies Allergy/AdvReac Type Severity Reaction Status Date / Time No Known Allergies Allergy Verified 07/04/22 13:37 Surgical - Exam - General no distress, no pain - Eyes normal ocular movement, no pale - ENT normal nares, normal mucosa - Respiratory normal expansion, normal respiratory effort - Abdomen Abdomen: soft, non tender - Psychiatric oriented to time, oriented to person, oriented to place Assessment and Plan Assessment: OR for robotic left-sided partial nephrectomy, possible radical
[~2022-07-07 09:33] MED LIST changes: -DEXAMETHASONE SOD PHOSPHATE 10 MG/ML 1 ML VIAL IV ONE; +DEXAMETHASONE SOD PHOSPHATE 4 MG/ML 1 ML VIAL IV ONE; -HEPARIN SODIUM,PORCINE 5,000 UNIT/ML 1 ML VIAL SQ ONE; +HYDROmorphone 0.5 MG/0.5 ML SYRINGE IVP PRN; +LIDOCAINE 1% (10MG/ML) FOR IV START INTRADERMA PRN; -LIDOCAINE 1% 20 ML VIAL (10MG/ML) FOR IV START INTRADERMA PRN
[2022-07-07] MEDS ORDERED: ALBUTEROL NEBULIZED 2.5 MG/3 ML INHALATION PRN (10:53)
[2022-07-07] MEDS ORDERED: tiZANidine 4 MG TAB PO PRN (10:53)
[2022-07-07] MEDS: LACTATED RINGERS 1,000 ML IV SCH (10:54)
[2022-07-07] MEDS ORDERED: LACTATED RINGERS 1,000 ML IV ONE ×2 (10:54→12:37)
[2022-07-07] MEDS ORDERED: MIDAZOLAM 2 MG/2 ML VIAL IVP ONE (11:04)
[2022-07-07] MEDS ORDERED: fentaNYL (PF) 50 MCG/ML 2 ML AMP IVP ONE (11:05)
[2022-07-07] MEDS ORDERED: NEOSTIGMINE 1 MG/ML 10 ML VIAL ONE (11:27)
[2022-07-07] MEDS ORDERED: PROPOFOL 10 MG/ML 50 ML VIAL IV ONE (11:27)
[2022-07-07] MEDS ORDERED: LIDOCAINE 4% LTA KIT (4 ML) TOPICAL ONE (11:27)
[2022-07-07] MEDS ORDERED: fentaNYL (PF) 50 MCG/ML 2 ML AMP ONE (11:27)
[2022-07-07] MEDS ORDERED: ROCURONIUM 10 MG/ML (5 ML VIAL) IV ONE (11:27)
[2022-07-07] MEDS ORDERED: MANNITOL 25% 12.5 GM/50 ML VIAL ONE (11:27)
[2022-07-07] MEDS ORDERED: METOPROLOL TARTRATE 5 MG/5 ML VIAL IVP ONE (11:27)
[2022-07-07] MEDS ORDERED: hydrALAZINE HCL 20 MG/ML 1 ML VIAL ONE (11:27)
[2022-07-07] MEDS ORDERED: GLYCOPYRROLATE 0.2 MG/ML 2 ML VIAL ONE (11:27)
[2022-07-07] MEDS ORDERED: BUPIVACAINE (PF) 0.25% 30 ML VIAL SQ ONE ×2 (11:32)
--- NOTE | 2022-07-07 11:48 | P.ANPRN ---
Procedure Note - Anesthesia - Nerve Block Performed Bilateral Erector Spinae Single Time Out Performed: Yes (1103) Date of Procedure: 07/07/22 Procedure Start Time: 11:04 Procedure Stop Time: 11:11 Location of Patient: PreOp Indication: Acute Post-Operative Pain, Requested by Surgeon Specifically requested for management of pain by : Guero Jimenez Sedation Type: Sedate with meaningful contact maintained Preparation: Sterile Prep Position: Prone Catheter: None Needle Types: Pajunk Needle Gauge: 21 Ultrasound used to visualize needle placement: Yes Ultrasound used to observe medication spread: Yes Injectate: 0.5% Ropivacaine (see comment for volume) (15cc + 10cc nacl pf each side) Blood Aspirated: No Pain Paresthesia on Injection Noted: No Resistance on Injection: Normal Image Stored and Saved: Yes Events: Uneventful and Well Tolerated
--- NOTE | 2022-07-07 14:09 | P.OP ---
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 Had a prolonged discussion with him and his family about the option of observation versus excision. The risk and the benefit of each approach was discussed in detail. At this time he wants to proceed with a excision of the mass. I discussed with him the mass is amenable to a partial nephrectomy. Discussed with him the risk which includes but not limited to bleeding, infection, injury to nearby organs which includes but not limited to the spleen, pancreas, bowel. Discussed also the potential of conversion to a radical nephrectomy. Discussed the potential of needing hemodialysis especially if radical nephrectomy was performed. Discussed with him given his age he's at an increased risk of medical complication which includes but not limited to heart attack, stroke, blood clots and even loss of life. He understood all the risk and agreed to proceed Description of Procedure: The patient was taken to the operating room . General anesthesia was induced. She was prepped and draped in sterile fashion, she was placed in modified flank position . All pressure points were padded. The abdominal insufflation was achieved with the Veress needle. A 8 mm camera port was placed. Robotic trocars and property management assistant ports were placed under direct vision. The robot was docked into place. The colon was mobilized medially by incising along the white line of Toldt. Next the spleen and the pancrease were mobilized. Once the bowel, spleen and pancreas were mobilized. At this time the gonadal vessel was visualized. . At this point the kidney was mobilized laterally to allow for visualization of the psoas. Next after the psoas plane was developed anteriorly and the ureter was identified.The ureter and gonadal vessel was retracted anteriorly off the psoas muscle. Next the renal artery was identified,. This was dissected in preparation for clamping. Of note patient had a single artery and single vein. After the hilum was dissected attention was then carried to the tumor. The kidney was defatted. d. At this point the tumor was visualized at all the edges could clearly be defined.. Next 3 bulldogs were applied to the renal artery, the vein was kept open. Next the tumor was excised using the monopolar scissors. Areas of bleeding was controlled using point cautery. Of note there was thickened tissue at the tumor base, this was sent separately as a tumor margin. Next the defect was closed in 2 layers using the 3-0V lock for the inner layer and 2-0 Vlock for outer layer. sliding clip technique was used. A total of 4 2-0 Vlocks were used for the outer layer. At this point the clamp was removed, total clamp time was approximately 18 minutes. There was no evidence of bleeding. Next hemostatic agents were applied to the defect. Next the kidney was retroperitonealized. Using 3-0 Vicryl stitches. Next a LORE drain was placed through the right lower quadrant port incision. Next the robot was undocked and-assisted incision was extended and the specimen was extracted. The fascia was closed using #1 PDS, in figure of 8 fashion. Skin was closed with subcuticular sutures and dermabond. The patient was awoken from general anesthesia in stable condition. Please refer to the final pathology report for final diagnosis
[2022-07-07] MEDS: MEPERIDINE 50 MG/ML SYRINGE IVP ONE ×4 (15:02→15:39)
[2022-07-07] MEDS: D5-0.45% NACL WITH KCL 20MEQ/L 1,000 ML IV SCH ×2 (18:08→22:34)
[2022-07-07] MEDS: HEPARIN SODIUM,PORCINE/PF 5,000 UNIT/0.5 ML SYRINGE SQ SCH (18:09)
[2022-07-07] MEDS: HYDROcodone/APAP 5-325MG 1 EACH TAB PO PRN (18:32)
[2022-07-07] MEDS: IPRATROPIUM 0.5 MG/2.5 ML NEBU INHALATION SCH ×2 (19:09→20:00)
[2022-07-07] MEDS: SYMBICORT 80-4.5 MCG INHALER INHALATION SCH (20:02)
[2022-07-07] MEDS: rOPINIRole HCL 4 MG TABLET PO SCH (20:30)
[2022-07-07] MEDS: HYDROmorphone 1 MG/ML 1 ML SYRINGE IVP PRN (20:30)
[2022-07-08] MEDS: HEPARIN SODIUM,PORCINE/PF 5,000 UNIT/0.5 ML SYRINGE SQ SCH ×4 (00:37→21:45)
[2022-07-08] MEDS: LACTATED RINGERS 1,000 ML IV SCH (01:52)
[2022-07-08] MEDS: HYDROmorphone 1 MG/ML 1 ML SYRINGE IVP PRN ×3 (04:31→12:23)
[2022-07-08] MEDS: IPRATROPIUM 0.5 MG/2.5 ML NEBU INHALATION SCH ×4 (07:11→18:57)
[2022-07-08] MEDS: SYMBICORT 80-4.5 MCG INHALER INHALATION SCH ×2 (07:11→18:57)
[2022-07-08] MEDS: PRAVASTATIN SODIUM 20 MG TAB PO SCH (09:14)
[2022-07-08 11:38] LABS: Basophils # (A) 0.02 X 10*3/uL (0.00-0.10); Basophils % (A) 0.2 %; Eosinophils # (A) 0.36 X 10*3/uL (0.04-0.35); HCT 33.3 % (39.6-50.0); HGB 11.1 g/dL (13.0-17.0); Immature Grans, Automated 0.3 %; Lymphocytes # (A) 0.96 X 10*3/uL (0.90-5.00); Lymphocytes % (A) 10.5 %; MCH 30.6 pg (27.0-32.0); MCHC 33.3 g/dL (32.0-37.0); MCV 91.7 fL (80.0-97.0); Mean Platelet Volume 10.5 fL (9.5-12.2); Monocytes # (A) 0.75 X 10*3/uL (0.20-1.00); Monocytes % (A) 8.2 %; NRBC Per 100 WBC 0 /100 WBCS (0.0-0.0); Neutrophils # (A) 6.99 X 10*3/uL (1.80-7.70); Neutrophils % (A) 76.8 %; Platelet Count 131 X 10*3/uL (140-440); RBC 3.63 X 10*6/uL (4.40-5.60); RDW 14.2 % (11.5-14.5); WBC 9.11 X 10*3/uL (4.50-10.00)
[2022-07-08 12:35] LABS: African American GFR (CKD) 94.4 (60.0-200.0); Anion Gap 6.6 mmol/L (10.00-18.00); BUN/Creat Ratio 12.5 Ratio (12.00-20.00); Calcium 8.3 mg/dL (8.7-10.3); Carbon Dioxide 26.4 mmol/L (20.0-27.5); Non-African American GFR(CKD) 81.5 (60.0-200.0); Potassium 4.6 mmol/L (3.5-5.5)
--- NOTE | 2022-07-08 14:36 | P.PN ---
Subjective Progress Note Date: 07/08/22 Principal diagnosis: POD #1, s/p robotic-assisted left partial nephrectomy. Mr. Seaman had an episode of dizziness while eating lunch. This has resolved. He has not yet ambulated. He has no specific complaints at this time. Objective - Vital Signs Vital signs: Vital Signs Temp 98.4 F 07/08/22 13:55 Pulse 77 07/08/22 14:00 Resp 16 07/08/22 14:00 BP 95/54 07/08/22 13:55 Pulse Ox 95 07/08/22 13:55 FiO2 Intake & Output 07/07/22 07/08/22 07/08/22 18:59 06:59 18:59 Intake Total 3240 478 Output Total 1780 740 100 Balance 1460 -740 378 Weight 58.2 kg Intake: IV 3150 Oral 90 478 Output: Drainage 30 Left Groin 30 Urine 1700 740 100 Estimated Blood Loss 50 Other: Voiding Method Indwelling Catheter Indwelling Catheter Indwelling Catheter External Catheter - Constitutional General appearance: Present: average body habitus, cooperative, no acute distress - Gastrointestinal Gastrointestinal Comment(s): Soft, non-distended. Incisions clean, dry, and intact. There is minimal LORE drainage. The Sweeney catheter is draining clear urine. - Psychiatric Psychiatric: Present: A&O x's 3 - Labs CBC & Chem 7: 07/08/22 07:18 07/08/22 07:18 Labs: Abnormal Lab Results - Last 24 Hours (Table) 07/08/22 07/08/22 Range/Units 07:18 07:18 RBC 3.63 L (4.40-5.60) X 10*6/uL Hgb 11.1 L (13.0-17.0) g/dL Hct 33.3 L (39.6-50.0) % Plt Count 131 L (140-440) X 10*3/uL Eosinophils # 0.36 H (0.04-0.35) X 10*3/uL Sodium 128 L (135-145) mmol/L Chloride 95 L (96-109) mmol/L Anion Gap 6.60 L (10.00-18.00) mmol/L Calcium 8.3 L (8.7-10.3) mg/dL Assessment and Plan (1) Neoplasm of uncertain behavior of left kidney Current Visit: Yes Status: Acute Code(s): D41.02 - NEOPLASM OF UNCERTAIN BEHAVIOR OF LEFT KIDNEY SNOMED Code(s): 782639042974100 Plan: Overall, patient appears stable. The Sweeney catheter will be removed. Ambulation is encouraged. Discharge home tomorrow is anticipated.
[2022-07-08] MEDS: HYDROcodone/APAP 5-325MG 1 EACH TAB PO PRN ×2 (16:20→21:45)
[2022-07-08] MEDS: D5-0.45% NACL WITH KCL 20MEQ/L 1,000 ML IV SCH ×3 (16:20→21:46)
[2022-07-08] MEDS: rOPINIRole HCL 4 MG TABLET PO SCH (19:53)
[2022-07-09] MEDS: LACTATED RINGERS 1,000 ML IV SCH (01:33)
[2022-07-09] MEDS: HYDROcodone/APAP 5-325MG 1 EACH TAB PO PRN ×2 (04:03→07:05)
[2022-07-09] MEDS: IPRATROPIUM 0.5 MG/2.5 ML NEBU INHALATION SCH ×2 (06:58→10:58)
[2022-07-09] MEDS: SYMBICORT 80-4.5 MCG INHALER INHALATION SCH (06:58)
[2022-07-09] MEDS: PRAVASTATIN SODIUM 20 MG TAB PO SCH (07:05)
[2022-07-09] MEDS: HEPARIN SODIUM,PORCINE/PF 5,000 UNIT/0.5 ML SYRINGE SQ SCH (07:05)
[2022-07-09 08:05] VITALS: BP 163/72; PULSE 70; RESP 14; TEMP 98.1
[2022-07-09] MEDS: D5-0.45% NACL WITH KCL 20MEQ/L 1,000 ML IV SCH (08:51)
--- NOTE | 2022-07-09 09:36 | P.DS ---
Providers Expected date of discharge: 07/09/22 Attending physician: Guero Jimenez MD Primary care physician: Christie Pryor - Discharge Diagnosis(es) (1) Neoplasm of uncertain behavior of left kidney Current Visit: Yes Status: Acute Hospital Course: The day of admission, the patient underwent an uncomplicated robotic-assisted laparoscopic left partial nephrectomy. The perioperative course was unremarkable. The patient remained afebrile with stable vital signs. LORE drainage was minimal. The Sweeney catheter was removed on the first postoperative day. At that time, he had not ambulated. At the time of discharge, his only complaint was left ankle discomfort. He was ambulating and tolerated diet. Examination revealed no sign of ankle swelling. The abdomen was soft and non- distended. Incisions were clean, dry, and intact. Procedures: Robotic-assisted laparoscopic left partial nephrectomy on 07/07/2022. Patient Condition at Discharge: Good Plan - Discharge Summary Discharge Rx Participant: No New Discharge Prescriptions: New Ketorolac [Toradol] 10 mg PO Q6HR PRN #12 tab PRN Reason: Mild To Moderate Pain HYDROcodone/APAP 5-325MG [[place] 5-325] 1 - 2 tab PO Q4HR PRN #6 tab PRN Reason: Severe Pain (Scale 7 To 10) No Action Albuterol Inhaler [Ventolin Hfa Inhaler] 2 puff INHALATION RT-Q4H PRN PRN Reason: Shortness Of Breath rOPINIRole HCL [Requip] 1 mg PO 1200 rOPINIRole HCL [Requip] 6 mg PO HS tiZANidine [Zanaflex] 4 mg PO HS PRN PRN Reason: Pain Ferrous Sulfate [Feosol] 325 mg PO DAILY Pravastatin Sodium [Pravachol] 20 mg PO DAILY Fluticasone/Umeclidin/Vilanter [Trelegy Ellipta 100-62.5-25] 1 inhalation INHALATION QAM Cholecalciferol [Vitamin D3 (125 Mcg = 5000 Iu)] 125 mcg PO DAILY Ascorbic Acid [Vitamin C] 1,000 mg PO DAILY Discharge Medication List Albuterol Inhaler [Ventolin Hfa Inhaler] 2 puff INHALATION RT-Q4H PRN 04/04/14 [History] rOPINIRole HCL [Requip] 1 mg PO 1200 10/16/19 [History] rOPINIRole HCL [Requip] 6 mg PO HS 10/16/19 [History] Fluticasone/Umeclidin/Vilanter [Trelegy Ellipta 100-62.5-25] 1 inhalation INHALATION QAM 07/04/22 [History] Pravastatin Sodium [Pravachol] 20 mg PO DAILY 07/04/22 [History] tiZANidine [Zanaflex] 4 mg PO HS PRN 07/04/22 [History] Ascorbic Acid [Vitamin C] 1,000 mg PO DAILY 07/06/22 [History] Cholecalciferol [Vitamin D3 (125 Mcg = 5000 Iu)] 125 mcg PO DAILY 07/06/22 [History] Ferrous Sulfate [Feosol] 325 mg PO DAILY 07/06/22 [History] HYDROcodone/APAP 5-325MG [[place] 5-325] 1 - 2 tab PO Q4HR PRN #6 tab 07/09/22 [Rx] Ketorolac [Toradol] 10 mg PO Q6HR PRN #12 tab 07/09/22 [Rx] Follow up Appointment(s)/Referral(s): Guero Jimenez MD [STAFF PHYSICIAN] - 1 Week Activity/Diet/Wound Care/Special Instructions: Remove LORE drain prior to discharge. Okay to shower 07/10/2022. Diet as tolerated. Drink plenty of fluids. No lifting or strenuous activity. Discharge Disposition: HOME SELF-CARE
== END 2022-07-09 12:00 | disposition home or self-care (01) ==
LOC: OR 09:33 → 6NMEDSUR 15:20 → OR 07-09 12:00
PROVIDERS: ATTEND Urology
DX: C64.2 Malignant neoplasm of left kidney, except renal pelvis (principal)
CPT/HCPCS: 50543; 64999; 86900; 86901; 80048; 85025; 86850; C1762; J2250; J0360; J1100; J2710; J2175; J0690; J2405; J2150; J3010; J1170 ×3; J2704; J1644 ×2; 88307

== ENCOUNTER 2022-11-10 06:04 | Day surgery (SDC) | payer OTHER ==
[~2022-11-10 06:04] MED LIST changes: +ACETAMINOPHEN TAB 500 MG TAB PO PRN; +HEPARIN SODIUM,PORCINE/PF 5,000 UNIT/0.5 ML SYRINGE SQ PRN; -HYDROmorphone 0.5 MG/0.5 ML SYRINGE IVP PRN; +LACTATED RINGERS 1,000 ML IV SCH; -MIDAZOLAM 2 MG/2 ML VIAL IV PRN
[2022-11-10 06:49] VITALS: TEMP 97.4
[2022-11-10] MEDS ORDERED: METOCLOPRAMIDE 5 MG/ML 2 ML VIAL IVP PRN (07:00)
[2022-11-10] MEDS ORDERED: fentaNYL (PF) 50 MCG/ML 2 ML AMP ONE (07:24)
[2022-11-10] MEDS ORDERED: ROCURONIUM 10 MG/ML (5 ML VIAL) IV ONE (07:24)
[2022-11-10] MEDS ORDERED: LIDOCAINE 2% INJ 20 MG/ML (2 ML VIAL) ONE (07:24)
[2022-11-10] MEDS ORDERED: GLYCOPYRROLATE 0.2 MG/ML 2 ML VIAL ONE (07:24)
[2022-11-10] MEDS ORDERED: SUCCINYLCHOLINE CHLORIDE 200 MG/10 ML VIAL IV ONE (07:24)
[2022-11-10] MEDS ORDERED: MIDAZOLAM 2 MG/2 ML VIAL ONE (07:24)
[2022-11-10] MEDS ORDERED: PROPOFOL 10 MG/ML 20 ML VIAL IV ONE (07:24)
[2022-11-10] MEDS ORDERED: NEOSTIGMINE 1 MG/ML 10 ML VIAL ONE (07:24)
[2022-11-10] MEDS ORDERED: BUPIVACAIN-EPI 0.25%-1:200,000 30 ML VIAL SQ ONE ×3 (07:28→08:24)
--- NOTE | 2022-11-10 07:31 | P.GSHP ---
History of Present Illness H&P Date: 11/10/22 Chief Complaint: Left inguinal hernia 86-year-old male here for open repair left inguinal hernia with mesh. Patient with complaints of a bulge left groin increasing in size over the last few years. He has pain there. He wears a truss daily. He has had multiple hernias in the past some of which were repaired previously. Currently has upper abdominal and right-sided abdominal hernias as well. History of previous laparoscopic prostate Past Medical History Past Medical History: Cancer, COPD, Hyperlipidemia, Hypertension, Osteoarthritis (OA), Skin Disorder Additional Past Medical History / Comment(s): prostate ca dx -had sx only, left kidney cancer 2021-had surg., Bronchitis, arthritis bilateral hands and hips, hiatal hernia, hernia after prostate sx. pt stated he gets up 3-4 times a night to urinate, RLS, frequent leg cramps, chronic low sodium hx., current rash right upper leg History of Any Multi-Drug Resistant Organisms: MRSA Date of last positivie culture/infection: 03/27/13 MDRO Source:: sputum Past Surgical History: Cholecystectomy, Hernia Repair, Orthopedic Surgery, Pacemaker, Prostate Surgery Additional Past Surgical History / Comment(s): CATARACT SX, R inguinal HERNIA REPAIR, colonoscopy, amputation L pinky finger, lap prostatectomy w/ srinivas pelvic lymphadenectomy 2017, robotic partial left nephrectomy Past Anesthesia/Blood Transfusion Reactions: No Reported Reaction Type of Cardiac Device: Permanent Pacemaker Device Placement Date:: 2017 [facility] Smoking Status: Former smoker - Past Family History Brother(s) Family Medical History: No Reported History Father Family Medical History: Cancer Additional Family Medical History / Comment(s): lung CA Mother Family Medical History: Coronary Artery Disease (CAD), Hypertension, Myocardial Infarction ([place]) Additional Family Medical History / Comment(s): Mother at the age of 72yrs. Medications and Allergies Home Medications Medication Instructions Recorded Confirmed Type Albuterol Inhaler [Ventolin Hfa 2 puff INHALATION RT-Q4H PRN 04/04/14 11/07/22 History Inhaler] rOPINIRole HCL [Requip] 1 mg PO 1400 10/16/19 11/07/22 History rOPINIRole HCL [Requip] 4 mg PO HS 10/16/19 11/07/22 History Fluticasone/Umeclidin/Vilanter 1 inhalation INHALATION QAM 07/04/22 11/07/22 History [Trelegy Ellipta 100-62.5-25] Pravastatin Sodium [Pravachol] 20 mg PO DAILY 07/04/22 11/07/22 History tiZANidine [Zanaflex] 4 mg PO HS PRN 07/04/22 11/07/22 History Clobetasol Propionate [Temovate 1 applic TOPICAL BID 11/07/22 11/07/22 History 0.05% Cream] NIFEdipine XL [Procardia XL] 60 mg PO HS 11/07/22 11/07/22 History Terbinafine [LamISIL] 250 mg PO DAILY 11/07/22 11/07/22 History Theraworx TOPICAL DIRECTED PRN 11/07/22 History Allergies Allergy/AdvReac Type Severity Reaction Status Date / Time No Known Allergies Allergy Verified 11/10/22 06:40 Surgical - Exam Vital Signs Temp Pulse Resp BP Pulse Ox 97.4 F L 67 16 135/62 97 11/10/22 06:48 11/10/22 06:48 11/10/22 06:48 11/10/22 06:48 11/10/22 06:48 Physical exam: General: Well-developed, well-nourished HEENT: Normocephalic, sclerae nonicteric Abdomen: Nontender, nondistended, reducible left inguinal hernia, epigastric hernia 2, right-sided abdominal wall hernia Extremities: No edema Neuro: Alert and oriented Assessment and Plan (1) Left inguinal hernia Narrative/Plan: 86-year-old male with left inguinal hernia. We'll proceed with open repair of ventral hernia with mesh at this time. Risks of bleeding, infection, recurrence, bladder and bowel injury, numbness, nerve injury were discussed with the patient. The patient understands and wishes to proceed. Current Visit: Yes Status: Acute Code(s): K40.90 - UNIL INGUINAL HERNIA, W/O OBST OR GANGR, NOT SPCF RECUR SNOMED Code(s): 259323090
[2022-11-10] MEDS ORDERED: LACTATED RINGERS 1,000 ML IV ONE (08:27)
[2022-11-10] MEDS ORDERED: ACETAMINOPHEN TAB 325 MG TAB PO SCH (08:45)
--- NOTE | 2022-11-10 08:48 | P.OP ---
Date of Procedure: 11/10/22 Procedure(s) Performed: PREOPERATIVE DIAGNOSIS: Left inguinal hernia POSTOPERATIVE DIAGNOSIS: Left direct and indirect inguinal hernia PROCEDURE: Open repair left inguinal hernia with mesh SURGEON: Dr. Padilla ANESTHESIA: General OPERATIVE PROCEDURE DETAILS: Patient was placed in the operating table in the supine position and placed under general anesthesia. An oblique incision was made in the left groin. Dissection down through the subcutaneous tissues took place using electrocautery. The external oblique fascia was incised using a scalpel. This opening was lengthened using the Metzenbaum scissors. The spermatic cord was encircled with a Yesica drain. The structures were identified and preserved. Careful dissection revealed an indirect hernia sac. This was carefully dissected back to the internal inguinal ring where it was ligated using 2 separate 0 silk stick tie sutures. Additionally the patient had a small defect measuring less than 1 cm in the direct space. This was closed using 2 separate [id number] 0 silk sutures. A 3" x 6" Prolene mesh was cut to fit on the exposed fascia. This was sutured to the pubic tubercle the folding edge of the inguinal ligament and the conjoined tendon. A slit was created in the mesh and the mesh was wrapped around the spermatic cord and sutured back to itself. The external oblique was then reapproximated using a running 2-0 Vicryl suture. The subcutaneous tissues were reapproximated using a 3-0 Vicryl sutures. The skin was closed using 4-0 Monocryl sutures. Steri- Strips and sterile dressings were then applied. TYPE OF MESH USED: Flat Prolene mesh LOCATION OF MESH: [place] FIXATION: 2-0 Vicryl PREOPERATIVE DISCUSSION ON SMOKING CESSASTION: Yes PREOPERATIVE DISCUSSION ON MORBID OBESITY: Yes PREOPERATIVE DISCUSSION ON APPROPRIATE USE OF NARCOTIC USE: Yes PREOPERATIVE EDUCATION: Multi Modal, Smoking Cessation and Weight Loss with BMI over 35. DISPOSITION: Stable to recovery room
[2022-11-10] MEDS: HYDROmorphone 0.5 MG/0.5 ML SYRINGE IVP PRN ×2 (08:49→09:04)
[2022-11-10] MEDS ORDERED: IBUPROFEN 600 MG TAB PO SCH (11:45)
[2022-11-10 12:18] VITALS: RESP 16
[2022-11-10 13:35] VITALS: BP 132/67; PULSE 75
== END 2022-11-10 13:50 | disposition home or self-care (01) ==
LOC: OR 06:04
PROVIDERS: ATTEND Surgery
DX: K40.90 Unilateral inguinal hernia, without obstruction or gangrene, not specified as recurrent (principal); J44.9 Chronic obstructive pulmonary disease, unspecified; E78.5 Hyperlipidemia, unspecified; I10 Essential (primary) hypertension; M19.90 Unspecified osteoarthritis, unspecified site; G25.81 Restless legs syndrome; Z90.49 Acquired absence of other specified parts of digestive tract; Z98.890 Other specified postprocedural states; Z95.0 Presence of cardiac pacemaker; Z87.891 Personal history of nicotine dependence; Z90.79 Acquired absence of other genital organ(s); Z80.1 Family history of malignant neoplasm of trachea, bronchus and lung; Z82.49 Family history of ischemic heart disease and other diseases of the circulatory system; Z79.51 Long term (current) use of inhaled steroids; Z79.899 Other long term (current) drug therapy
CPT/HCPCS: 49505; J1100; J0690; J2405; J1170; J1644; 88302

== ENCOUNTER → 2023-01-30 | Outpatient (CLI) | payer MEDICARE, OTHER ==
--- NOTE | 2023-01-30 14:23 | XR ---
EXAMINATION TYPE: XR chest 2V DATE OF EXAM: 01/30/2023 COMPARISON: Chest x-ray June 29, 2022 HISTORY: Malignant renal cell cancer. TECHNIQUE: Frontal and lateral views of the chest are obtained. FINDINGS: There is chronic parenchymal changes bilaterally without suspicious focal air space opacit y, pleural effusion, or pneumothorax seen. The cardiac silhouette size is upper limits of normal wit h multi lead pacemaker and atherosclerotic thoracic aorta redemonstrated. Old healed fractures of the posterior lateral right mid to lower ribs is identified. IMPRESSION: Chronic changes without acute pulmonary process. No significant change from prior.
[2023-01-30 14:25] LABS: African American GFR (CKD) >90 (>60 ml/min/1.73 sqM); Blood Urea Nitrogen 20 mg/dL (9-20); Non-African American GFR(CKD) 82 (>60 ml/min/1.73 sqM)
--- NOTE | 2023-01-30 17:33 | CT ---
EXAMINATION TYPE: CT abdomen w con DATE OF EXAM: 01/30/2023 COMPARISON: 03/29/2017, 03/20/2022 INDICATION: f/u kidney ca DLP: 307.8 mGycm, Automated exposure control for dose reduction was used. CONTRAST: 100 mL of Isovue 300. Study performed with Oral Contrast TECHNIQUE: Axial images were obtained from above the diaphragm to the pubic rami in the axial plane a t 5 mm thick sections. Reconstructed images are reviewed on the computer in the coronal plane. FINDINGS: Limited CT sections are obtained the lung bases. The lung bases are clear. CT ABDOMEN: Liver: 2 cm hepatic cyst within the left lobe liver. Additional 0.8 cm right lobe liver cyst present. Spleen: Normal Pancreas: Normal Adrenal glands: The adrenal glands are normal. Gallbladder: Absent Kidneys: In the coronal plane there is a 0.5 x 2.4 cm low-density mass just inferior to the left kidn ey. The prior mass at this level as been resected. No hydronephrosis is present. No cysts are present. Delayed images were obtained through the kidne ys, which remain unremarkable. Aorta: Vascular calcification is within the aorta. Inferior vena cava: Normal. Loops of bowel within the abdomen and pelvis are normal. There are loops of bowel which are incom pletely distended or lack oral contrast limiting their evaluation. IMPRESSIONS: 1. There is residual low density inferior to the left kidney. This could be postsurgical in nature. Mild residual mass cannot be excluded. Close monitoring is recommended.
== END | disposition home or self-care (01) ==
LOC: RADCTMAIN 13:26
PROVIDERS: ATTEND Urology
DX: C64.2 Malignant neoplasm of left kidney, except renal pelvis (principal); I70.0 Atherosclerosis of aorta; J98.4 Other disorders of lung
CPT/HCPCS: 82565; 84520; 71046; 74160; 36415; Q9967

== ENCOUNTER 2024-07-29 13:47 | Day surgery (SDC) | payer MEDICARE, OTHER ==
[2024-07-25 10:40] VITALS: BMI 21.9
[2024-07-29] MEDS: IV FLUID CONTINUATION 1,000 ML IV ONE (14:48)
[2024-07-29] MEDS ORDERED: MIDAZOLAM 2 MG/2 ML VIAL ONE (16:18)
[2024-07-29] MEDS ORDERED: fentaNYL (PF) 50 MCG/ML 2 ML AMP ONE (16:18)
[2024-07-29] MEDS: ceFAZolin 1 GM in SODIUM CHLORIDE 0.9% IRRIG BTL 250 ML IRRIGATION PRN (16:36)
[2024-07-29] MEDS ORDERED: ACETAMINOPHEN TAB 325 MG TAB PO PRN (16:41)
[2024-07-29] MEDS: LIDOCAINE 1% INJ 10MG/ML (20 ML MDV) SQ ONE (16:53)
[2024-07-29] MEDS: ROPIVACAINE 5 MG/ML 30 ML VIAL MISCELLANE ONE (16:55)
[2024-07-29] MEDS ORDERED: DOCUSATE 100 MG CAP PO PRN (17:20)
--- NOTE | 2024-07-29 17:31 | P.EPPROC ---
- EP Procedure Note Electrophysiology Procedure Note: Diagnosis Complete heart block, status post biventricular pacemaker In situ biventricular pacemaker at [facility], normal battery depletion Admitted for biventricular pacemaker generator change Procedure Biventricular pacemaker generator change Details Patient was brought to the EP lab in a fasting state. Written informed consent was obtained prior to the procedure. Conscious sedation provided by anesthesia team IV antibiotics administered. Local anesthesia administered. A 4 cm incision made in the pectoral area. Subfascial pocket accessed and biventricular pacemaker generator explanted. Leads freed from surrounding soft tissue. Partial capsulectomy performed. Hemostasis assured. New biventricular pacemaker generator implanted. Leads reinterrogated. New generator is a Quadra allure MP [employer], PM 3562, serial #[id number] Chronic atrial lead position the right atrial appendage. [employer] medical Pacing threshold 0.5 V at 0.5 ms, P waves 3.3 mV and pacing pins 430 ohms Chronic RV lead position in the RV septum. Pacing threshold 0.9 V at 0.5 ms, no underlying R waves, pacing impedance 480 ohms Chronic LV lead positioned in the posterior lateral LV vein 1.25 V at 1 ms, D1- can, no underlying R waves, pacing impedance 640 ohms Biventricular pacemaker device connected to the leads and placed in the subfascial pocket antibiotic pouch placed Pacemaker programmed to DDD 50-120 with a paced AV delay of 120 ms with an LV offset of 15 ms Patient tolerated the procedure well without acute complications
[2024-07-29] MEDS: SODIUM CHLORIDE 0.9% 1,000 ML IV SCH ×2 (18:50→18:51)
[2024-07-29] MEDS: PRAVASTATIN SODIUM 20 MG TAB PO SCH (20:37)
[2024-07-29] MEDS: ACETAMINOPHEN IV (For NPO) 1,000 MG in EMPTY BAG 1 BAG IVPB ONE (20:50)
[2024-07-30 07:51] VITALS: RESP 16; TEMP 97.7
[2024-07-30] MEDS: SYMBICORT 80-4.5 MCG INHALER INHALATION SCH (08:07)
[2024-07-30] MEDS: IPRATROPIUM 0.5 MG/2.5 ML NEBU INHALATION SCH (08:08)
--- NOTE | 2024-07-30 09:50 | P.DS ---
Providers Expected date of discharge: 07/30/24 Attending physician: Champ Rodrigues Primary care physician: [facility] Hospital Course: This is an 88-year-old male patient brought into the hospital by Dr. Rodrigues for biventricular pacemaker generator change which was performed yesterday. Patient has had no postprocedure complications. Patient will be discharged home today in stable condition. Nurse practitioner note has been reviewed, I agree with documented findings and plan of care. Patient was seen and examined. Patient Condition at Discharge: Good Plan - Discharge Summary Discharge Rx Participant: Yes New Discharge Prescriptions: Continue tiZANidine [Zanaflex] 2 mg PO Q8HR PRN PRN Reason: Muscle Spasm Docusate [Colace] 100 mg PO HS PRN PRN Reason: Constipation rOPINIRole HCL [rOPINIRole HCL ER (XL)] 6 mg PO DAILY rOPINIRole HCL [Requip] 1 mg PO HS Fluticasone/Umeclidin/Vilanter [Trelegy Ellipta 100-62.5-25] 1 inhalation INHALATION DAILY Albuterol Sulfate [Proair Respiclick] 2 puff INHALATION Q4-6H PRN PRN Reason: Shortness Of Breath Or Wheezing Pravastatin Sodium [Pravachol] 20 mg PO HS Discharge Medication List Albuterol Sulfate [Proair Respiclick] 2 puff INHALATION Q4-6H PRN 07/29/24 [History] Docusate [Colace] 100 mg PO HS PRN 07/29/24 [History] Fluticasone/Umeclidin/Vilanter [Trelegy Ellipta 100-62.5-25] 1 inhalation INHALATION DAILY 07/29/24 [History] Pravastatin Sodium [Pravachol] 20 mg PO HS 07/29/24 [History] rOPINIRole HCL [Requip] 1 mg PO HS 07/29/24 [History] rOPINIRole HCL [rOPINIRole HCL ER (XL)] 6 mg PO DAILY 07/29/24 [History] tiZANidine [Zanaflex] 2 mg PO Q8HR PRN 07/29/24 [History] Follow up Appointment(s)/Referral(s): Champ Rodrigues MD [STAFF PHYSICIAN] - 08/04/24 4:00 pm (FOLLOW UP APPOINTMENT WITH THE [facility]. ) Patient Instructions/Handouts: Moderate Sedation (DC), Pacemaker Generator C hange (DC) Discharge Disposition: HOME SELF-CARE
[2024-07-30 12:36] VITALS: BP 114/66; PULSE 58
== END 2024-07-30 12:55 | disposition home or self-care (01) ==
LOC: CATHEP 13:47 → 6NMEDSUR 17:18 → CATHEP 07-30 12:55
PROVIDERS: ATTEND Internal Medicine Clinical Cardiac Electrophysiology
CPT/HCPCS: 33229